=== PATIENT | male | born 1975 | race Caucasian/White ===

== ENCOUNTER 2017-08-03 08:11 | Emergency (ER) | payer SELFPAY ==
[2017-08-03] MEDS ORDERED: NA CHLORIDE 0.9% 1,000 ML ONE ×2 (08:42→10:08)
--- NOTE | 2017-08-03 09:01 | RAD REPORT ---
EXAM DESCRIPTION: RAD - Chest Single View - 08/03/2017 8:52 am CLINICAL HISTORY: Cough COMPARISON: None. FINDINGS: Portable technique limits examination quality. The lungs are grossly clear. The heart is normal in size. No displaced fractures. IMPRESSION: No acute intrathoracic process suspected.
[2017-08-03] MEDS ORDERED: ENALAPRILAT 1.25 MG/ML VIAL IV ONE (09:05)
[2017-08-03 09:21] LABS: Absolute Lymphocytes (CBC) 1.4 K/uL (0.7-4.9); Absolute Neutrophil 6.7 K/uL (1.8-8.0); Basophils % 0.7 % (0-1.3); Eosinophils % 0.4 % (0-4.4); Hematocrit 46.4 % (39.6-49.0); Lymphocytes % 14.9 % (15.3-44.8); MCH 31.7 pg (27.0-35.0); MCV 91.9 fL (80-100); MPV 8.6 fL (7.6-11.3); Monocytes % 10.8 % (3.3-12.3); RBC Red Blood Cell Count 5.05 M/uL (4.33-5.43)
[2017-08-03 09:27] LABS: Bicarbonate 25 mEq/L (21-31); Glucose Level 109 mg/dL (65-120); Potassium 3.2 mEq/L (3.6-5.0); Sodium Level 137 mEq/L (135-145)
[2017-08-03 09:30] LABS: Protime INR 1.16
[2017-08-03 09:33] LABS: ALT/SGPT 66 IU/L (10-60); AST/SGOT 65 IU/L (10-42); Albumin 4.5 g/dL (3.2-5.5); Alkaline Phosphatase 60 IU/L (42-121); BUN Blood Urea Nitrogen 10 mg/dL (6-20); Bilirubin Direct 0.1 mg/dL (0-0.2); Bilirubin Total 0.9 mg/dL (0.3-1.2); Creatine Phosphokinase 468 IU/L (22-269); Magnesium 1.7 mg/dL (1.8-2.5); Protein, Total 8.6 g/dL (6.0-8.3)
[2017-08-03 09:42] LABS: Barbiturates NEGATIVE; Benzodiazepines NEGATIVE; Cocaine NEGATIVE; Opiates POSITIVE; Phencyclidine NEGATIVE; THC Cannibis NEGATIVE
[2017-08-03 09:45] LABS: METHAMPHETAM POSITIVE
[2017-08-03] MEDS ORDERED: MAGNESIUM SULFATE 1 gm IVPB 1 GM/100 ML BAG IV ONE (10:08)
[2017-08-03] MEDS ORDERED: POTASSIUM CL SA 10 MEQ TAB PO ONE (10:08)
[2017-08-03] MEDS ORDERED: METOPROLOL TARTRATE 5 MG/5 ML INJ IV ONE (10:24)
--- NOTE | 2017-08-03 10:27 | EKG ---
Test Date: 2017-08-03 Test Time: 08:43:11 Home Designer: RYAN MEASUREMENT RESULTS: Intervals: Rate: 123 NM: 144 QRSD: 92 QT: 320 QTc: 458 [place]: P: 72 NM: 144 QRS: 47 T: -7 INTERPRETIVE STATEMENTS: Sinus tachycardia Left ventricular hypertrophy with repolarization abnormality Abnormal ECG Compared to ECG 08/10/2016 09:46:49 Left ventricular hypertrophy now present Early repolarization now present Sinus rhythm no longer present Electronically Signed On 08-03-17 10:27:00 CDT by Yrn Madrigal
[2017-08-03] MEDS ORDERED: KETOROLAC 30 MG/ML INJ ONE (11:09)
[2017-08-03] MEDS ORDERED: ACETAMINOPHEN 325 MG TABLET ONE (11:09)
--- NOTE | 2017-08-03 11:45 | ER ---
Nurse's Notes [facility] Name: Marvin Chow Age: 42 yrs Sex: Male : 1975 Arrival Date: 08/03/2017 Time: 08:14 Bed 20 Private MD: Diagnosis: Acute bronchitis;Dehydration Presentation: 08/03 08:32 Presenting complaint: Patient states: cough and body aches for a week, reports nausea, em chills, Right ear pain, unknown fever. Transition of care: patient was not received from another setting of care. Onset of symptoms was July 27, 2017. Initial Sepsis Screen: Does the patient have a suspected source of infection?. Care prior to arrival: None. 08:32 Method Of Arrival: Ambulatory em 08:32 Acuity: GERARDO 3 iw 10:30 Initial Sepsis Screen: Does the patient meet any 2 criteria? HR > 90 bpm. No. Patient's em initial sepsis screen is negative. Does the patient have a suspected source of infection? No. Patient's initial sepsis screen is negative. Historical: - Home Meds: 08:35 atenolol 50 mg Oral tab 1 tab once daily [Active]; lisinopril 40 mg Oral tab 1 tab once em daily [Active]; 11:44 clonidine HCl 0.2 mg oral tab [Active]; Hydrochlorothiazide Oral [Active]; em - PMHx: 08:35 heart flutter; Hypertension; em - PSHx: 08:35 Heart stents; em - Immunization history:: Adult Immunizations up to date, Flu vaccine is not up to date. - Social history:: Smoking status: Patient/guardian denies using tobacco. Screenin:36 Abuse screen: Denies threats or abuse. Nutritional screening: No deficits noted. em Tuberculosis screening: No symptoms or risk factors identified. Fall Risk None identified. Assessment: 08:35 General: Appears in no apparent distress. uncomfortable, Behavior is calm, cooperative. em General: Reports chills for >3 days, feeling ill for fatigue for Denies fever. Pain: Complains of pain in whole body Pain currently is 9 out of 10 on a pain scale. Neuro: Level of Consciousness is awake, alert, obeys commands, Oriented to person, place, time, situation, Reports headache weakness Denies blurred vision paresthesias. Cardiovascular: Denies chest pain, diaphoresis, vomiting, Heart tones S1 S2 present Capillary refill < 3 seconds Rhythm is sinus tachycardia. Respiratory: Airway is patent Respiratory effort is even, unlabored, Respiratory pattern is regular, symmetrical, Breath sounds are clear bilaterally. GI: Abdomen is flat, Abd is soft X 4 quads Abdomen is tender to palpation in right lower quadrant. : No signs and/or symptoms were reported regarding the genitourinary system. EENT: Reports right ear pain. Derm: Skin is intact, Skin is pink, warm \T\ dry. Musculoskeletal: Capillary refill < 3 seconds, Range of motion: intact in all extremities. 09:30 Reassessment: Patient appears in no apparent distress at this time. Patient and/or em family updated on plan of care and expected duration. Pain level reassessed. Patient is alert, oriented x 3, equal unlabored respirations, skin warm/dry/pink. Patient states feeling better. 09:45 Reassessment: Patient appears in no apparent distress at this time. I agree with the iw above assessment by Og Yi LVN. 10:30 Reassessment: Patient appears in no apparent distress at this time. Patient and/or em family updated on plan of care and expected duration. Pain level reassessed. Patient is alert, oriented x 3, equal unlabored respirations, skin warm/dry/pink. Patient states feeling better. 11:16 Reassessment: Patient appears in no apparent distress at this time. Patient and/or em family updated on plan of care and expected duration. Pain level reassessed. Patient is alert, oriented x 3, equal unlabored respirations, skin warm/dry/pink. Patient states feeling better. Patient states symptoms have improved. 11:40 Reassessment: Patient appears in no apparent distress at this time. CLAUDIA Childs at bedside em discussing POC. Vital Signs: 08:34 BP 163 / 118; Pulse 136; Resp 22; Temp 99.8(O); Pulse Ox 97% on R/A; Weight 95.25 kg; em Height 5 ft. 10 in. (177.80 cm); Pain 9/10; 09:00 BP 174 / 110; Pulse 126; Resp 20; Pulse Ox 96% on R/A; em 09:40 BP 157 / 112; Pulse 123; Resp 20; Pulse Ox 96% on R/A; em 10:29 BP 142 / 98; Pulse 95; Resp 17; Pulse Ox 96% on R/A; 5 11:10 BP 154 / 99; Pulse 93; Resp 16; Temp 99.4(O); Pulse Ox 97% on R/A; em 12:00 BP 170 / 107; Pulse 95; Resp 18; Pulse Ox 97% on R/A; em 08:34 Body Mass Index 30.13 (95.25 kg, 177.80 cm) em ED Course: 08:14 Patient arrived in ED. rg4 08:21 Amadeo Santana PA is PHCP. jr8 08:21 Rex Black MD is Attending Physician. jr8 08:31 Og Yi LVN is Primary Nurse. em 08:36 Patient has correct armband on for positive identification. Placed in gown. Bed in low em position. Call light in reach. Side rails up X 1. 08:36 Arm band placed on. em 08:50 No provider procedures requiring assistance completed. Inserted saline lock: 20 gauge em in right antecubital area, using aseptic technique. Blood collected. 08:50 Initial lab(s) drawn, by me, sent to lab. First set of blood cultures drawn Urine em collected: clean catch specimen, clear, Flu and/or RSV swab sent to lab. Strep swab sent to lab. 08:51 X-ray completed. Portable x-ray completed in exam room. Patient tolerated procedure ml well. 08:53 XRAY Chest (1 view) In Process Unspecified. EDMS 09:12 EKG done, by structured cabling technician. reviewed by Amadeo TAYLOR. vh 09:28 Triage completed. iw 12:12 IV discontinued, intact, bleeding controlled, No redness/swelling at site. Pressure em dressing applied. Administered Medications: 09:05 Drug: NS 0.9% 1000 ml Route: IV; Rate: 1000 ml; Site: right antecubital; em 11:10 Follow up: IV Status: Completed infusion; IV Intake: 1000ml em 09:20 Drug: Enalaprilat 1.25 mg Route: IV; Rate: calculated rate; Site: right antecubital; iw 10:00 Follow up: Response: No adverse reaction; Blood pressure is lowered; IV Status: em Completed infusion 10:14 Follow up: Response: No adverse reaction; Blood pressure is lowered em 10:14 Drug: Magnesium Sulfate 1 grams Route: IVPB; Infused Over: 1 hrs; Site: right em antecubital; 11:00 Follow up: IV Status: Completed infusion; IV Intake: 100ml em 10:14 Drug: Potassium Chloride 40 mEq Route: PO; em 11:10 Follow up: Response: No adverse reaction em 10:30 Drug: Metoprolol 5 mg Route: IVP; Site: right antecubital; iw 11:11 Follow up: Response: No adverse reaction; Blood pressure is lowered em 11:02 Drug: NS 0.9% 1000 ml Route: IV; Rate: 1000 ml; Site: right antecubital; em 12:30 Follow up: IV Status: Completed infusion; IV Intake: 1000ml em 11:14 Drug: Tylenol 650 mg Route: PO; em 11:47 Follow up: Response: No adverse reaction em 11:15 Drug: TORadol 30 mg Route: IVP; Site: right antecubital; iw 11:47 Follow up: Response: No adverse reaction em Intake: 11:00 IV: 100ml; Total: 100ml. em 11:10 IV: 1000ml; Total: 1100ml. em 12:30 IV: 1000ml; Total: 2100ml. em Outcome: 11:45 Discharge ordered by MD. ramirez 12:12 Discharged to home ambulatory. em 12:12 Condition: good 12:12 Discharge instructions given to patient, Instructed on discharge instructions, follow up and referral plans. Demonstrated understanding of instructions, follow-up care, medications, Prescriptions given X 7 12:13 Patient left the ED. em Signatures: Dispatcher [employer] EDMS Og Yi, SPORTS PHYSICAL THERAPIST SPORTS PHYSICAL THERAPIST em Nery Baker RN RN iw Lopez, Melissa ml Roszak, Josh, PA PA jr8 [place] Rub[facility] Paz Chand [facility] Corrections: (The following items were deleted from the chart) 08:48 08:34 Pulse 136bpm; Resp 22bpm; Pulse Ox 97% RA; Temp 99.8F Oral; 95.25 kg; Height 5 em ft. 10 in.; BMI: 30.1; Pain 9/10; em 11:44 08:35 Allergies: No Known Allergies; em em 1144 08:35 Home Meds: clonidine HCl 0.1 mg Oral tab 1 tab 2 times per day; em em 11:46 10:30 Reassessment: Patient appears in no apparent distress at this time. Patient em and/or family updated on plan of care and expected duration. Pain level reassessed. Patient is alert, oriented x 3, equal unlabored respirations, skin warm/dry/pink. iw 12:12 12:00 BP 170 / 107; Pulse 95bpm; Resp 97bpm; Pulse Ox 97% RA; em em 19:21 19:21 IV Status: Completed infusion; IV Intake: 100ml em em
--- NOTE | 2017-08-03 11:45 | EDPHYS ---
Physician Documentation [facility] Name: Marvin Chow Age: 42 yrs Sex: Male : 1975 Arrival Date: 08/03/2017 Time: 08:14 Bed 20 Private MD: ED Physician Rex Black HPI: 08/03 09:11 This 42 yrs old Male presents to ER via Ambulatory with complaints of Cough, jr8 Congestion. 09:11 The patient or guardian reports cough, that is intermittent, described as mild, with jr8 productive sputum, that is yellow. Onset: The symptoms/episode began/occurred gradually, 1 week(s) ago. Severity of symptoms: At their worst the symptoms were moderate, in the emergency department the symptoms are unchanged. Modifying factors: The symptoms are alleviated by nothing, the symptoms are aggravated by nothing. Associated signs and symptoms: Pertinent positives: headache, body aches, chills, n/v . The patient has not experienced similar symptoms in the past. The patient has not recently seen a physician. Historical: - Home Meds: 08:35 atenolol 50 mg Oral tab 1 tab once daily [Active]; lisinopril 40 mg Oral tab 1 tab once em daily [Active]; 11:44 clonidine HCl 0.2 mg oral tab [Active]; Hydrochlorothiazide Oral [Active]; em - PMHx: 08:35 heart flutter; Hypertension; em - PSHx: 08:35 Heart stents; em - Immunization history:: Adult Immunizations up to date, Flu vaccine is not up to date. - Social history:: Smoking status: Patient/guardian denies using tobacco. ROS: 09:11 Eyes: Negative for injury, pain, redness, and discharge, ENT: Negative for injury, jr8 pain, and discharge, Neck: Negative for injury, pain, and swelling, Cardiovascular: Negative for chest pain, palpitations, and edema, Back: Negative for injury and pain, MS/Extremity: Negative for injury and deformity, Skin: Negative for injury, rash, and discoloration. 09:11 Constitutional: Positive for body aches, chills. 09:11 Respiratory: Positive for cough, with yellow sputum, Negative for dyspnea on exertion, shortness of breath. 09:11 Abdomen/GI: Positive for nausea and vomiting, Negative for abdominal pain, diarrhea, constipation, abdominal cramps, abdominal distension, anorexia, dysphagia, hematemesis, black/tarry stool, rectal pain, rectal bleeding, bowel incontinence, flatulence. 09:11 Neuro: Positive for headache, Negative for altered mental status, dizziness, gait disturbance, hearing loss, loss of consciousness, numbness, seizure activity, speech changes, syncope, near syncope, tingling, tinnitus, tremor, visual changes, weakness. Exam: 09:11 Head/Face: Normocephalic, atraumatic. Eyes: Pupils equal round and reactive to light, jr8 extra-ocular motions intact. Lids and lashes normal. Conjunctiva and sclera are non-icteric and not injected. Cornea within normal limits. Periorbital areas with no swelling, redness, or edema. ENT: Nares patent. No nasal discharge, no septal abnormalities noted. Tympanic membranes are normal and external auditory canals are clear. Oropharynx with no redness, swelling, or masses, exudates, or evidence of obstruction, uvula midline. Mucous membranes moist. Neck: Trachea midline, no thyromegaly or masses palpated, and no cervical lymphadenopathy. Supple, full range of motion without nuchal rigidity, or vertebral point tenderness. No Meningismus. Respiratory: Lungs have equal breath sounds bilaterally, clear to auscultation and percussion. No rales, rhonchi or wheezes noted. No increased work of breathing, no retractions or nasal flaring. Abdomen/GI: Soft, non-tender, with normal bowel sounds. No distension or tympany. No guarding or rebound. No evidence of tenderness throughout. Back: No spinal tenderness. No costovertebral tenderness. Full range of motion. Skin: Warm, dry with normal turgor. Normal color with no rashes, no lesions, and no evidence of cellulitis. MS/ Extremity: Pulses equal, no cyanosis. Neurovascular intact. Full, normal range of motion. Neuro: Awake and alert, GCS 15, oriented to person, place, time, and situation. Cranial nerves II-XII grossly intact. Motor strength 5/5 in all extremities. Sensory grossly intact. Cerebellar exam normal. Normal gait. 09:11 Cardiovascular: Rate: tachycardic, Rhythm: regular, Pulses: Pulses are 2+ in right radial artery and left radial artery. Heart sounds: normal, normal S1and S2, no S3 or S4, no murmur, no rub, no gallop, Edema: is not appreciated. Vital Signs: 08:34 BP 163 / 118; Pulse 136; Resp 22; Temp 99.8(O); Pulse Ox 97% on R/A; Weight 95.25 kg; em Height 5 ft. 10 in. (177.80 cm); Pain 9/10; 09:00 BP 174 / 110; Pulse 126; Resp 20; Pulse Ox 96% on R/A; em 09:40 BP 157 / 112; Pulse 123; Resp 20; Pulse Ox 96% on R/A; em 10:29 BP 142 / 98; Pulse 95; Resp 17; Pulse Ox 96% on R/A; mh5 11:10 BP 154 / 99; Pulse 93; Resp 16; Temp 99.4(O); Pulse Ox 97% on R/A; em 12:00 BP 170 / 107; Pulse 95; Resp 18; Pulse Ox 97% on R/A; em 08:34 Body Mass Index 30.13 (95.25 kg, 177.80 cm) em MDM: 08:21 Patient medically screened. jr8 11:39 Differential Diagnosis: Bronchitis Influenza Upper Respiratory Infection Viral Syndrome jr8 Pneumonia. Data reviewed: vital signs, nurses notes, lab test result(s), EKG, radiologic studies, plain films, and as a result, I will discharge patient. Data interpreted: Pulse oximetry: on room air is 100 %. Interpretation: normal. Counseling: I had a detailed discussion with the patient and/or guardian regarding: the historical points, exam findings, and any diagnostic results supporting the discharge/admit diagnosis, lab results, radiology results, the need for outpatient follow up, a family practitioner, to return to the emergency department if symptoms worsen or persist or if there are any questions or concerns that arise at home. Response to treatment: the patient's symptoms have markedly improved after treatment, patient is well hydrated. 08/03 08:31 Order name: Basic Metabolic Panel; Complete Time: 08/03 08:31 Order name: BNP; Complete Time: 08/03 08:31 Order name: CBC with Diff; Complete Time: 09:29 08/03 08:31 Order name: CPK; Complete Time: 08/03 08:31 Order name: LFT's; Complete Time: :42 08/03 08:31 Order name: Magnesium; Complete Time: 09:42 08/03 08:31 Order name: PT-INR; Complete Time: 09:42 08/03 08:31 Order name: Troponin (emerg Dept Use Only); Complete Time: 09:42 08/03 08:31 Order name: Flu; Complete Time: 09:42 08/03 08:31 Order name: Strep; Complete Time: 09:42 08/03 08:35 Order name: Blood Culture Adult (2) 08/03 09:03 Order name: UDS 08/03 09:03 Order name: Urine Drug Screen; Complete Time: 09:55 EDMA 08/03 09:31 Order name: Throat Culture [facility] 08/03 08:31 Order name: XRAY Chest (1 view); Complete Time: 09:04 08/03 08:31 Order name: EKG; Complete Time: 08:32 08/03 08:31 Order name: Cardiac monitoring; Complete Time: 09:18 08/03 08:31 Order name: EKG - Nurse/Tech; Complete Time: 09:18 08/03 08:31 Order name: IV Saline Lock; Complete Time: 09:18 08/03 08:31 Order name: Labs collected and sent; Complete Time: 09:18 08/03 08:31 Order name: O2 Per Protocol; Complete Time: 09:18 08/03 09:56 Order name: Urine Dipstick--Ancillary (enter results) 08/03 08:31 Order name: O2 Sat Monitoring; Complete Time: 09:18 08/03 08:31 Order name: Urine Dipstick-Ancillary (obtain specimen); Complete Time: 09:18 Administered Medications: 09:05 Drug: NS 0.9% 1000 ml Route: IV; Rate: 1000 ml; Site: right antecubital; em 11:10 Follow up: IV Status: Completed infusion; IV Intake: 1000ml em 09:20 Drug: Enalaprilat 1.25 mg Route: IV; Rate: calculated rate; Site: right antecubital; iw 10:00 Follow up: Response: No adverse reaction; Blood pressure is lowered; IV Status: em Completed infusion 10:14 Follow up: Response: No adverse reaction; Blood pressure is lowered em 10:14 Drug: Magnesium Sulfate 1 grams Route: IVPB; Infused Over: 1 hrs; Site: right em antecubital; 11:00 Follow up: IV Status: Completed infusion; IV Intake: 100ml em 10:14 Drug: Potassium Chloride 40 mEq Route: PO; em 11:10 Follow up: Response: No adverse reaction em 10:30 Drug: Metoprolol 5 mg Route: IVP; Site: right antecubital; iw 11:11 Follow up: Response: No adverse reaction; Blood pressure is lowered em 11:02 Drug: NS 0.9% 1000 ml Route: IV; Rate: 1000 ml; Site: right antecubital; em 12:30 Follow up: IV Status: Completed infusion; IV Intake: 1000ml em 11:14 Drug: Tylenol 650 mg Route: PO; em 11:47 Follow up: Response: No adverse reaction em 11:15 Drug: TORadol 30 mg Route: IVP; Site: right antecubital; iw 11:47 Follow up: Response: No adverse reaction em Disposition: 08/03/17 11:45 Discharged to Home. Impression: Acute bronchitis, Dehydration. - Condition is Stable. - Discharge Instructions: Acute Bronchitis, Dehydration, Adult. - Prescriptions for atenolol 50 mg Oral tablet - take 1 tablet by ORAL route once daily; 30 tablet. lisinopril 40 mg Oral tablet - take 1 tablet by ORAL route once daily; 30 tablet. Hydrochlorothiazide 25 mg Oral Tablet - take 1 tablet by ORAL route once daily .; 30 tablet. Tessalon Perles 100 mg Oral Capsule - take 1 capsule by ORAL route every 8 hours As needed; 15 capsule. Zithromax Z- Marques 250 mg Oral Tablet - take 1 tablet by ORAL route as directed for 5 days Day 1 - take two (2) tablets one time. Day 2, 3, 4 , 5 take one (1) tablet once daily.; 6 tablet. Albuterol Sulfate 90 mcg/actuation - inhale 1-2 puff by INHALATION route every 4-6 hours; 1 Inhaler. Clonidine 0.2 mg Oral Tablet - take 1 tablet by ORAL route every 12 hours; 30 tablet. - Work release form, Medication Reconciliation Form, Thank You Letter, Antibiotic Education, Prescription Opioid Use form. - Follow up: Private Physician; When: 2 - 3 days; Reason: Recheck today's complaints, Continuance of care, Re-evaluation by your physician. - Problem is new. - Symptoms have improved. Addendum: 08/06/2017 20:56 Co-signature as Attending Physician, Rex Black MD. r n Signatures: Dispatcher [employer] EDMS Kd, Og, DECORATOR MANNEQUIN DECORATOR MANNEQUIN em Nery Baker RN RN iw Nieto, Roman, MD MD rn Roszak, Josh, PA PA jr8 Corrections: (The following items were deleted from the chart) 08/03 11:44 08:35 Allergies: No Known Allergies; em em 11:44 08:35 Home Meds: clonidine HCl 0.1 mg Oral tab 1 tab 2 times per day; em em 12:13 11:45 08/03/2017 11:45 Discharged to Home. Impression: Acute bronchitis; Dehydration. em Condition is Stable. Forms are Medication Reconciliation Form, Thank You Letter, Antibiotic Education, Prescription Opioid Use. Follow up: Private Physician; When: 2 - 3 days; Reason: Recheck today's complaints, Continuance of care, Re-evaluation by your physician. Problem is new. Symptoms have improved. jr8
[2017-08-03 13:40] LABS: Urine Blood NEGATIVE (NEG); Urine Glucose NEGATIVE (NEG); Urine Protein 1+ (NEG); Urine Specific Gravity 1.025 (1.005-1.030); Urine pH 5.5 (5.0-7.0)
== END 2017-08-03 12:13 | disposition home or self-care (01) ==
LOC: ER 08:11
DX: J20.9 Acute bronchitis, unspecified (principal); E86.0 Dehydration; I10 Essential (primary) hypertension
CPT/HCPCS: 36415; 71045; 80048; 80076; 80307; 81003; 82550; 83735; 83880; 84484; 85025; 85610; 87040; 87070; 87081; 87804; 93005; 96361; 96365; 96367; 96375; 99284; J3475; J7030

== ENCOUNTER 2020-08-28 23:49 | Emergency (ER) | payer SELFPAY ==
[2020-08-29 00:46] LABS: Urine Blood Negative (Negative); Urine Glucose Negative (Negative); Urine Protein Negative (Negative); Urine Specific Gravity 1.015 (1.005-1.030); Urine pH 5.5 (5.0-7.0)
[2020-08-29] MEDS ORDERED: KETOROLAC 30 MG/ML INJ ONE (01:22)
[2020-08-29 01:27] LABS: Absolute Lymphocytes (CBC) 4.2 K/uL (0.7-4.9); Basophils % 1.6 % (0-1.3); Hematocrit 48.2 % (39.6-49.0); Lymphocytes % 44.3 % (15.3-44.8); MPV 7.8 fL (7.6-11.3); RBC Red Blood Cell Count 5.13 M/uL (4.33-5.43)
[2020-08-29 01:30] LABS: Protime INR 0.97
[2020-08-29 01:47] LABS: Blood Morphology Comment NOT SEEN (NOT SEEN); Platelet Estimate ADEQ
[2020-08-29 01:54] LABS: ALT/SGPT 68 U/L (12-78); AST/SGOT 54 U/L (15-37); Albumin 3.8 g/dL (3.4-5.0); Alkaline Phosphatase 66 U/L (45-117); BUN Blood Urea Nitrogen 8 mg/dL (7-18); Bicarbonate 25 mmol/L (21-32); Bilirubin Direct < 0.1 mg/dL (0-0.2); Bilirubin Total 0.2 mg/dL (0.2-1.0); Glucose Level 107 mg/dL (74-106); Magnesium 2.1 mg/dL (1.8-2.4); NT PRO-BNP 25 pg/mL (<125); Potassium 3.7 mmol/L (3.5-5.1); Protein, Total 8.5 g/dL (6.4-8.2); Sodium Level 140 mmol/L (136-145); Troponin (Emerg Dept Use Only) < 0.02 ng/mL (0.0-0.045)
--- NOTE | 2020-08-29 03:17 | EDPHYS ---
Physician Documentation [facility] Name: Marvin Chow Age: 45 yrs Sex: Male : 1975 Arrival Date: 08/28/2020 Time: 23:51 Bed 19 Private MD: ED Physician Chris Hamm HPI: 08/29 20:03 This 45 yrs old Male presents to ER via Ambulatory with complaints of Low tw4 Back Pain, Numbness Of Hand, Numbness Of Arm, Urinary Problem, Back Pain. 20:03 The patient presents with pain that is chronic, with no known mechanism of injury. The tw4 symptoms are located in the thoracic area and lumbar area. The pain does not radiate. The problem was sustained from unknown cause. Onset: The symptoms/episode began/occurred 2 week(s) ago. Modifying factors: The patient symptoms are alleviated by nothing, the patient symptoms are aggravated by any movement. Associated signs and symptoms: Pertinent positives: bladder incontinence, Pertinent negatives: abdominal pain, chest pain, constipation, dysuria, fever, headache, hematuria, numbness, tingling, urinary retention, vomiting, weakness. Severity of symptoms: At their worst the symptoms were mild, in the emergency department the symptoms are unchanged. The patient has not experienced similar symptoms in the past. Historical: - Allergies: 00:14 No Known Allergies; rr5 - PMHx: 00:14 heart flutter; Hypertension; rr5 - PSHx: 00:14 Hernia repair; rr5 - Immunization history:: Adult Immunizations up to date. - Social history:: Smoking status: unknown Patient/guardian denies using alcohol, street drugs, tobacco products. ROS: 20:03 Constitutional: Negative for fever, chills, and weight loss, Eyes: Negative for injury, tw4 pain, redness, and discharge, Cardiovascular: Negative for chest pain, palpitations, and edema, Respiratory: Negative for shortness of breath, cough, wheezing, and pleuritic chest pain, Abdomen/GI: Negative for abdominal pain, nausea, vomiting, diarrhea, and constipation. 20:03 MS/Extremity: Negative for injury and deformity, Skin: Negative for injury, rash, and discoloration, Neuro: Negative for headache, weakness, numbness, tingling, and seizure. 20:03 Back: Positive for decreased range of motion, pain at rest, pain with movement, flank pain. Exam: 20:03 Constitutional: This is a well developed, well nourished patient who is awake, alert, tw4 and in no acute distress. Head/Face: Normocephalic, atraumatic. Chest/axilla: Normal chest wall appearance and motion. Nontender with no deformity. No lesions are appreciated. Cardiovascular: Regular rate and rhythm with a normal S1 and S2. No gallops, murmurs, or rubs. Normal PMI, no JVD. No pulse deficits. Respiratory: Lungs have equal breath sounds bilaterally, clear to auscultation and percussion. No rales, rhonchi or wheezes noted. No increased work of breathing, no retractions or nasal flaring. Abdomen/GI: Soft, non-tender, with normal bowel sounds. No distension or tympany. No guarding or rebound. No evidence of tenderness throughout. Skin: Warm, dry with normal turgor. Normal color with no rashes, no lesions, and no evidence of cellulitis. MS/ Extremity: Pulses equal, no cyanosis. Neurovascular intact. Full, normal range of motion. Neuro: Awake and alert, GCS 15, oriented to person, place, time, and situation. Cranial nerves II-XII grossly intact. Motor strength 5/5 in all extremities. Sensory grossly intact. Cerebellar exam normal. Normal gait. 20:03 Back: pain, is absent, ROM is painful. Vital Signs: 00:07 BP 199 / 121; Pulse 105; Resp 20; Temp 98; Pulse Ox 95% ; Weight 90.72 kg; Height 5 ft. rr5 10 in. (177.80 cm); Pain 10/10; 03:00 BP 181 / 125; Pulse 94; Resp 18; Pulse Ox 96% on R/A; lp1 03:30 BP 173 / 133; lp1 03:45 BP 164 / 123; lp1 04:00 BP 160 / 122; lp1 04:15 BP 155 / 119; lp1 05:00 BP 155 / 115; lp1 00:07 Body Mass Index 28.70 (90.72 kg, 177.80 cm) rr5 MDM: 03:16 Patient medically screened. tw4 20:03 Differential diagnosis: arthritis, strain, fracture. Data reviewed: vital signs, nurses tw4 notes. Data interpreted: Pulse oximetry: Interpretation: normal. Counseling: I had a detailed discussion with the patient and/or guardian regarding: the historical points, exam findings, and any diagnostic results supporting the discharge/admit diagnosis, lab results, radiology results. Medical screen evaluation completed. EMTALA emergency medical condition absent. Medication response: Toradol markedly relieved the patient's pain. Response to treatment: and as a result, I will discharge patient. Special discussion: I discussed with the patient/guardian in detail that at this point there is no indication for admission to the hospital. It is understood, however, that if the symptoms persist or worsen the patient needs to return immediately for re-evaluation. Based on the history and exam findings, there is no indication for further emergent testing or inpatient evaluation. I discussed with the patient/guardian the need to see the neurologist for further evaluation of the symptoms. I discussed with the patient/guardian the need to see the orthopedic surgeon for further evaluation of the symptoms. 08/29 00:23 Order name: Glucose, Ancillary Testing; Complete Time: 04:18 EDMS 08/29 00:41 Order name: Basic Metabolic Panel tw4 08/29 00:41 Order name: CBC with Diff tw4 08/29 00:41 Order name: LFT's tw4 08/29 00:41 Order name: Magnesium; Complete Time: 04:18 tw4 08/29 00:41 Order name: NT PRO-BNP; Complete Time: 04:18 tw4 08/29 00:41 Order name: PT-INR; Complete Time: 04:18 tw4 08/29 00:41 Order name: Troponin (emerg Dept Use Only); Complete Time: 04:18 tw4 08/29 00:42 Order name: Basic Metabolic Panel; Complete Time: 04:18 EDMS 08/29 00:42 Order name: CBC with Automated Diff; Complete Time: 04:18 EDMS 08/29 00:42 Order name: Liver (Hepatic) Function; Complete Time: 04:18 EDMS 08/29 00:46 Order name: Urine Dipstick-Ancillary; Complete Time: 04:18 EDMS 08/29 01:03 Order name: CT Thoracic Spine Wo Cont tw4 08/29 01:31 Order name: Manual Differential; Complete Time: 04:18 EDMS 08/29 00:25 Order name: EKG; Complete Time: 00:25 rr5 08/29 00:25 Order name: EKG - Nurse/Tech; Complete Time: 00:25 rr5 08/29 00:41 Order name: Cardiac monitoring; Complete Time: 00:47 tw4 08/29 05:22 Interpretation: Abnormal. 08/29 00:41 Order name: IV Saline Lock; Complete Time: 01:23 tw4 08/29 00:41 Order name: Labs collected and sent; Complete Time: 01:15 4 08/29 00:41 Order name: O2 Per Protocol; Complete Time: 01:15 08/29 00:41 Order name: O2 Sat Monitoring; Complete Time: 01:15 tw4 08/29 01:03 Order name: CT Lumbar Spine Wo Con tw4 EC:09 Rate is 107 beats/min. Rhythm is regular. QRS [place] is Normal. SD interval is normal. tw4 QRS interval is normal. QT interval is normal. No Q waves. T waves are Inverted in leads III, aVF, V6. No ST changes noted. Clinical impression: NSR w/ Non-specific ST/T Changes. Interpreted by me. Reviewed by me. Administered Medications: 01:16 Drug: TORadol (ketorolac) 30 mg {Note: Verbal order per Dr. Hamm.} Route: IVP; Site: lp1 right forearm; 02:15 Follow up: Response: No change in condition lp1 03:44 Drug: Labetalol 10 mg Route: IVP; Site: right antecubital; lp1 04:21 Follow up: Response: Blood pressure is lowered lp1 04:39 Drug: hydrALAZINE 10 mg Route: IVP; Site: right forearm; lp1 05:00 Follow up: Response: No adverse reaction lp1 Disposition: 08/29/20 03:16 Discharged to Home. Impression: Sprain of ligaments of thoracic spine, Sprain of ligaments of lumbar spine. - Condition is Stable. - Discharge Instructions: Back Pain, Adult, Thoracic Strain. - Prescriptions for Ibuprofen 800 mg Oral Tablet - take 1 tablet by ORAL route every 8 hours As needed take with food; 30 tablet. Cyclobenzaprine 10 mg Oral Tablet - take 1 tablet by ORAL route every 8 hours As needed; 30 tablet. Tramadol 50 mg Oral Tablet - take 1 tablet by ORAL route every 8 hours as needed; 12 tablet. - Medication Reconciliation Form, Thank You Letter, Antibiotic Education, Prescription Opioid Use form. - Follow up: Private Physician; When: Upon discharge from the Emergency Department; Reason: Recheck today's complaints, Continuance of care, Re-evaluation by your physician. Follow up: Rj Doe MD; When: Upon discharge from the Emergency Department; Reason: Recheck today's complaints, Continuance of care, Re-evaluation by your physician. Follow up: Juan Marino MD; When: Upon discharge from the Emergency Department; Reason: Recheck today's complaints, Continuance of care, Re-evaluation by your physician. - Problem is new. - Symptoms have improved. Signatures: Dispatcher [employer] EDMS Cadence Keita RN RN bb Priscilla Baptiste RN RN lp1 Chris Hamm MD MD tw4 Shaq Reno RN RN rr5 Corrections: (The following items were deleted from the chart) 05:24 03:16 08/29/2020 03:16 Discharged to Home. Impression: Sprain of ligaments of thoracic lp1 spine; Sprain of ligaments of lumbar spine. Condition is Stable. Forms are Medication Reconciliation Form, Thank You Letter, Antibiotic Education, Prescription Opioid Use. Follow up: Private Physician; When: Upon discharge from the Emergency Department; Reason: Recheck today's complaints, Continuance of care, Re-evaluation by your physician. Follow up: Rj Doe; When: Upon discharge from the Emergency Department; Reason: Recheck today's complaints, Continuance of care, Re-evaluation by your physician. Follow up: Juan Marino; When: Upon discharge from the Emergency Department; Reason: Recheck today's complaints, Continuance of care, Re-evaluation by your physician. Problem is new. Symptoms have improved. tw4
--- NOTE | 2020-08-29 03:17 | ER ---
Nurse's Notes [facility] Name: Marvin Chow Age: 45 yrs Sex: Male : 1975 Arrival Date: 08/28/2020 Time: 23:51 Bed 19 Private MD: Diagnosis: Sprain of ligaments of thoracic spine;Sprain of ligaments of lumbar spine Presentation: 08/29 00:07 Chief complaint: Patient states: off and on confusion, slurring speech, left arm and rr5 finger numbness started 2 weeks ago. I also have mid back pain and I noticed I cannot control when i pee. Coronavirus screen: Client denies travel out of the [place] in the last 14 days. At this time, the client does not indicate any symptoms associated with coronavirus-19. Ebola Screen: Patient negative for fever greater than or equal to 101.5 degrees Fahrenheit, and additional compatible Ebola Virus Disease symptoms Patient denies exposure to infectious person. Patient denies travel to an Ebola-affected area in the 21 days before illness onset. Initial Sepsis Screen: Does the patient meet any 2 criteria? No. Patient's initial sepsis screen is negative. Does the patient have a suspected source of infection? No. Patient's initial sepsis screen is negative. Risk Assessment: Do you want to hurt yourself or someone else? Patient reports no desire to harm self or others. Onset of symptoms was July 2020. 00:07 Method Of Arrival: Ambulatory rr5 00:07 Acuity: GERARDO 3 rr5 Historical: - Allergies: 00:14 No Known Allergies; rr5 - PMHx: 00:14 heart flutter; Hypertension; rr5 - PSHx: 00:14 Hernia repair; rr5 - Immunization history:: Adult Immunizations up to date. - Social history:: Smoking status: unknown Patient/guardian denies using alcohol, street drugs, tobacco products. Screenin:15 VAN Screening: Arm Drift: Patient shows no arm weakness. Patient is VAN negative. rr5 01:19 Abuse screen: Denies threats or abuse. Denies injuries from another. Nutritional lp1 screening: No deficits noted. Tuberculosis screening: No symptoms or risk factors identified. Fall Risk None identified. Assessment: 01:16 General: Appears uncomfortable, Behavior is calm, cooperative, appropriate for age. lp1 Pain: Complains of pain in lumbar area Pain currently is 8 out of 10 on a pain scale. Quality of pain is described as aching, sharp. Neuro: Level of Consciousness is awake, alert, obeys commands, Oriented to person, place, time, situation, Gait is steady, paresthesias in dorsal aspect of left forearm reports not acute paresthesias . Cardiovascular: Patient's skin is warm and dry. Respiratory: Respiratory effort is even, unlabored. GI: No signs and/or symptoms were reported involving the gastrointestinal system. : Reports incontinence, since 2 weeks ago; reports "wetting the bed" and "barely making it to the bathroom" during the day. EENT: No signs and/or symptoms were reported regarding the EENT system. Derm: Skin is pink, warm \\T\\ dry. Musculoskeletal: No deficits noted. 02:45 Reassessment: Patient appears in no apparent distress at this time. Patient reports lp1 pain unchanged; aware of waiting for imaging results. 04:30 Reassessment: Patient appears in no apparent distress at this time. Patient is alert, lp1 oriented x 3, equal unlabored respirations, skin warm/dry/pink. Patient denies any chest pain, shortness of breath, dizziness. Vital Signs: 00:07 BP 199 / 121; Pulse 105; Resp 20; Temp 98; Pulse Ox 95% ; Weight 90.72 kg; Height 5 ft. rr5 10 in. (177.80 cm); Pain 10/10; 03:00 BP 181 / 125; Pulse 94; Resp 18; Pulse Ox 96% on R/A; lp1 03:30 BP 173 / 133; lp1 03:45 BP 164 / 123; lp1 04:00 BP 160 / 122; lp1 04:15 BP 155 / 119; lp1 05:00 BP 155 / 115; lp1 00:07 Body Mass Index 28.70 (90.72 kg, 177.80 cm) rr5 ED Course: 08/28 23:51 Patient arrived in ED. cf2 08/29 00:14 Triage completed. rr5 00:15 Arm band placed on right wrist. rr5 00:40 Priscilla Baptiste, CM is Primary Nurse. lp1 00:40 Chris Hamm MD is Attending Physician. tw4 01:16 Inserted saline lock: 20 gauge in right forearm, using aseptic technique. Blood lp1 collected. 01:19 Patient has correct armband on for positive identification. Placed in gown. lp1 01:38 CT Thoracic Spine Wo Cont In Process Unspecified. EDMS 01:39 CT Lumbar Spine Wo Con In Process Unspecified. EDMS 03:15 Rj Doe MD is Referral Physician. tw4 03:15 Juan Marino MD is Referral Physician. tw4 03:25 No provider procedures requiring assistance completed. lp1 05:23 IV discontinued, No redness/swelling at site. Pressure dressing applied. lp1 Administered Medications: 01:16 Drug: TORadol (ketorolac) 30 mg {Note: Verbal order per Dr. Hamm.} Route: IVP; Site: lp1 right forearm; 02:15 Follow up: Response: No change in condition lp1 03:44 Drug: Labetalol 10 mg Route: IVP; Site: right antecubital; lp1 04:21 Follow up: Response: Blood pressure is lowered lp1 04:39 Drug: hydrALAZINE 10 mg Route: IVP; Site: right forearm; lp1 05:00 Follow up: Response: No adverse reaction lp1 Outcome: 03:16 Discharge ordered by . tw4 05:23 Discharged to home ambulatory. lp1 05:23 Condition: good 05:23 Discharge instructions given to patient, Instructed on discharge instructions, follow up and referral plans. medication usage, Demonstrated understanding of instructions, follow-up care, medications, Prescriptions given X 3. 05:24 Patient left the ED. lp1 Signatures: Dispatcher [employer] EDOR Priscilla Baptiste, RN RN lp1 Chris Hamm MD MD tw4 Shaq Reno RN RN rr5 Romulo Roblero 2
[2020-08-29] MEDS ORDERED: LABETALOL 20 MG/4ML SYRINGE IV ONE (03:59)
[2020-08-29] MEDS ORDERED: HYDRALAZINE HCL 20 MG/ML VIAL ONE (04:56)
[2020-08-29 05:32] VITALS: TEMP 98
[2020-08-29 05:34] VITALS: O2SAT 96
[2020-08-29 05:40] VITALS: BP 155/115
--- NOTE | 2020-08-30 10:10 | RAD REPORT ---
EXAM DESCRIPTION: CTSpine Lumbar Wo Con08/29/2020 5:50 am CLINICAL HISTORY: The patient is 45 years old and is Male; PAIN TECHNIQUE: Axial computed tomography images of the lumbar spine without intravenous contrast. Sagi ttal and coronal reformatted images were created and reviewed. This CT exam was performed using one or more of the following dose reduction techniques: automated exposure control, adjustment of the mA and/or kV according to patient size, and/or use of iterative reconstruction technique. COMPARISON: No relevant prior studies available. FINDINGS: VERTEBRAE: The vertebral body heights and alignment are maintained. There is no acute frac ture. DISCS/SPINAL CANAL/NEURAL FORAMINA: Minimal intervertebral disc space narrowing with osteophyte formation throughout the lumbar spine is present. There is no significant canal stenosis. Mild disc b ulges are present most prominent at L3-L4 and L4-L5 causing minimal neural foraminal narrowing. SOFT TISSUES: The soft tissues are normal. 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 Electronically signed by: Naomi Holm MD 08/29/2020 2:08 AM CDT Due to temporary technical issues with the PACS/Fluency reporting system, reports are being signed by the in house radiologist without review as a courtesy to ensure prompt reporting. The interpreting r adiologist is fully responsible for the content of the report.
--- NOTE | 2020-08-30 10:19 | RAD REPORT ---
EXAM DESCRIPTION: CTThoracic Spine W/o Cont08/29/2020 5:50 am CLINICAL HISTORY: The patient is 45 years old and is Male; PAIN TECHNIQUE: Axial computed tomography images of the thoracic spine without intravenous contrast. Sa gittal and coronal reformatted images were created and reviewed. This CT exam was performed using o ne or more of the following dose reduction techniques: automated exposure control, adjustment of th e mA and/or kV according to patient size, and/or use of iterative reconstruction technique. COMPARISON: No relevant prior studies available. FINDINGS: VERTEBRAE: The vertebral body heights and alignment are maintained. No acute fracture. DISCS/SPINAL CANAL/NEURAL FORAMINA: The intervertebral disc spaces are maintained. No spinal can al stenosis. SOFT TISSUES: The soft tissues are normal. LUNGS: Visualized lungs are clear. IMPRESSION: No fracture or malalignment of the thoracic spine. Electronically signed by: Naomi Holm MD 08/29/2020 2:05 AM CDT Due to temporary technical issues with the PACS/Fluency reporting system, reports are being signed by the in house radiologist without review as a courtesy to ensure prompt reporting. The interpreting r adiologist is fully responsible for the content of the report.
== END 2020-08-29 05:24 | disposition home or self-care (01) ==
LOC: ER 23:49
DX: S33.5XXA Sprain of ligaments of lumbar spine, initial encounter (principal); S23.3XXA Sprain of ligaments of thoracic spine, initial encounter; I10 Essential (primary) hypertension
CPT/HCPCS: 36415; 72128; 72131; 80048; 80076; 81003; 82947; 83735; 83880; 84484; 85025; 85610; 93005; 99284; J0360

== ENCOUNTER 2021-08-11 16:25 | Emergency (ER) | payer SELFPAY ==
--- OUTSIDE RECORDS SUMMARY | 2021-08-11 16:29 | XMS REPORT | Continuity of Care Document ---
:[address] [facility] Address [address] [place] [address] Dr. Iverson. [address] [place] [address] Care Team Providers Name Role Phone PCP, DOES NOT HAVE A Primary Care Physician Unavailable Aiden UGARTE Attending Clinician Unavailable Jaki Ugarte MD.H. Attending Clinician Doctor Unassigned, Name Attending Clinician Unavailable Dario Vernon Attending Clinician Samuel Attending Clinician Issac Rivera MD Attending Clinician Maggie CANCHOLA Attending Clinician Surgery, General Attending Clinician Unavailable Aiden UGARTE Admitting Clinician Unavailable Issac Rivera MD Admitting Clinician Payers Payer Name Policy Type Policy Number Effective Date Expiration Date S ource Problems Condition Condition Condition Status Onset Resolution Last Treating Co mments Source Name Details Category Date Date Treatment Clinician Date Incarcerat Incarcerat Disease Active Overview : Univers ed right ed right 11-21 Added ity of inguinal inguinal 00:00: automatic [place] as hernia hernia 00 ally from Medical request Branch for surgery [id number] Right Right Disease Active Univers inguinal inguinal 7-14 ity of hernia hernia 00:00: [place] [facility] No known No known Disease Unive rs active active ity of problems problems [facility] Allergies, Adverse Reactions, Alerts Allergy Allergy Status Severity Reaction(s) Onset Inactive Treating Comm ents Source Name Type Date Date Clinician Amlodipi Propensi Active Swelling Univ ers ne ty to 731 ity of adverse 00:00: [place] reaction 00 Medical s Branch NO KNOWN Drug Active Univers ALLERGIE Class ity of S [facility] Social History Social Habit Start Date Stop Date Quantity Comments Source History of Cigarette Smoker Universi ty of tobacco use [facility] Exposure to Not sure University of SARS-CoV-2 [facility] (event) Branch Alcohol intake 2018-12-04 2018-12-04 University of 00:00:00 00:00:00 [facility] Tobacco Comment 2016-10-06 2016-10-06 quit 10 yrs ago Univ ersity of 00:00:00 00:00:00 [facility] Alcohol Comment 2016-10-06 2016-10-06 quit 7 yrs ago Unive rsity of 00:00:00 00:00:00 [facility] Sex Assigned At [birth year] [facility] y of 00:00:00 00:00:00 [facility] Smoking Status Start Date Stop Date Source Unknown if ever smoked [facility] Former smoker 2018-12-04 00:00:00 2018-12-04 00:00:00 [facility] Medications Ordered Filled Start Stop Current Ordering Indication Dosage Frequency Signature Comments Components Source Medication Medication Date Date Medication? Clinician (SIG) Name Name No known No Univers medications 2-28 ity of 09:43: [place] 54 [facility] carvediloL Yes [id number] 12.5mg Take 1 Univers 12.5 mg 2- tablet by ity of tablet 00:00: mouth 2 [place] 00 (two) Medical times Opp daily with meals. RANITIDINE 2019- No Take by Un manolo HCL ORAL 12-04 mouth as ity of 03:40: 00:00 needed. [place] 04 :00 [facility] acetaminoph Yes 1{tbl} 1 tablet, Univers en-codeine 12-04 Oral, ity of (TYLENOL 02:36: Q6HPRN, [place] #3) 300-30 42 Starting Medic al mg tablet 1 [facility] tablet 12/03/18 at 2136, Until Discontinu ed, Routine, Pain (scale 4-6), Pain (scale 7-10) acetaminoph 2019- No 1{tbl} 1 tablet, Univers en-codeine 12-03 Oral, PRN, it y of (TYLENOL 18:03: 18:31 1 dose, [place] #3) 300-30 16 :00 Starting Medic al mg tablet 1 [facility] Branch tablet 12/03/18 at 1303, Until 12/03/18 at 1331, Routine, Pain (scale 7-10), DSU Recovery lidocaine 2018- No ONCE INTRA U nivers 2% 12-03 PROCEDURE, ity of (XYLOCAINE) 16:25: 23:18 Starting [place] 20 mg/mL (2 00 :48 Tue Medical %) 12/03/18 at Branch injection 1125, Until 12/03/18 at 1818, Routine, Intra-op bupivacaine 2018- No ONCE INTRA Univers (preserv 12-03 PROCEDURE, ity of free) 0.5% 16:25: 23:18 [place] (SENSORCAIN 00 :43 Tue Medical E MPF) 0.5 12/03/[address] [facility] nc % (5 mg/mL) 1125, injection Until 12/03/18 at 1818, Routine, Intra-op lidocaine 2018- No ONCE INTRA U nivers 2% 12-03 PROCEDURE, ity of (XYLOCAINE) 16:25: 23:18 Starting [place] 20 mg/mL (2 00 :48 Tue Medical %) 12/03/18 at Branch injection 1125, Until 12/03/18 at 1818, Routine, Intra-op bupivacaine 2018- No ONCE INTRA Univers (preserv 12-03 PROCEDURE, ity of free) 0.5% 16:25: 23:18 [place] (SENSORCAIN 00 :43 Tue Medical E MPF) 0.5 12/03/18 at [facility] % (5 mg/mL) 1125, injection Until 12/03/18 at 1818, Routine, Intra-op FENTanyl PF 2018- No 25ug 25 mcg, Un manolo (SUBLIMAZE 12-03 Slow IV ity o f (PF)) 15:42: 16:10 Push, [place] injection 05 :00 Q5MIN PRN, Medi mark 25 mcg 4 doses, Branch Starting 12/03/18 at 1042, Until 12/03/18 at 1110, Routine, Pain (scale 7-10), PACU sugammadex 2019-0 2019- No ONCE INTRA Univers (BRIDION) 12-03 PROCEDURE, ity of injection 15:35: 16:00 Starting [place] 00 :50 Tue Medical 12/03/18 at Branch 1035, Until 12/03/18 at 1100, Routine, Intra-op sugammadex 2019- No ONCE INTRA Univers (BRIDION) 12-03 PROCEDURE, ity of injection 15:35: 16:00 Starting [place] 00 :50 Tue Medical 12/03/18 at Branch 1035, Until 12/03/18 at 1100, Routine, Intra-op sugammadex 2019- No ONCE INTRA Univers (BRIDION) 12-03 PROCEDURE, ity of injection 15:35: 16:00 Starting [place] 00 :50 Tue Medical 12/03/18 at Branch 1035, Until 12/03/18 at 1100, Routine, Intra-op acetaminoph 2019- No IV Unive rs en ADULT 12-03 Infusion, ity o f ([facility]) 15:15: 16:00 Administer [place] injection 00 :50 over 15 Medical Minutes, Branch ONCE INTRA PROCEDURE, Starting 12/03/18 at 1015, Until 12/03/18 at 1100, Routine, Intra-op acetaminoph 2019- No IV Unive rs en ADULT 12-03 Infusion, ity o f ([facility]) 15:15: 16:00 Administer [place] injection 00 :50 over 15 Medical Minutes, Branch ONCE INTRA PROCEDURE, Starting 12/03/18 at 1015, Until 12/03/18 at 1100, Routine, Intra-op acetaminoph 2019- No IV Unive rs en ADULT 12-03 Infusion, ity o f ([facility]) 15:15: 16:00 Administer [place] injection 00 :50 over 15 Medical Minutes, Branch ONCE INTRA PROCEDURE, Starting 12/03/18 at 1015, Until 12/03/18 at 1100, Routine, Intra-op dexMEDEtomi 2019- No CONTINUOUS Univers dine 12-03 PRN, ity of (PRECEDEX) 15:03: 16:00 [place] 20 mcg in 00 :50 Tue Medical NaCl 0.9% 12/03/18 at [facility] (NS) 1003, piggyback Until Sun12/03/18 at 1100, 50 mL, Intra-op dexMEDEtomi 2018- No CONTINUOUS Univers dine 12-03 PRN, ity of (PRECEDEX) 15:03: 16:00 Starting [place] 20 mcg in 00 :50 Tue Medical NaCl 0.9% 12/03/18 at [facility] (NS) 1003, piggyback Until Tu12/03/18 at 1100, 50 mL, Intra-op dexMEDEtomi 2018- No CONTINUOUS Univers din 12-03 PRN, ity of (PRECEDEX) 15:03: 16:00 Starting [place] 20 mcg in 00 :50 Tue Medical NaCl 0.9% 12/03/18 at [facility] (NS) 1003, piggyback Until Sun12/03/18 at 1100, 50 mL, Intra-op ceFAZolin 2018- No ONCE INTRA U nivers (ANCEF) 12-03 PROCEDURE, ity o f injection 14:55: 16:00 Starting [place] 00 :50 [facility] 12/03/18 at Branch 09, Until Sun12/03/18 at 1100, NEENA, Intra-op ceFAZolin 2019- No ONCE INTRA U nivers (ANCEF) 12-03 PROCEDURE, ity o f injection 14:55: 16:00 Starting [place] 00 :50 [facility] 12/03/18 at Branch 0955, Until e 12/03/18 at 1100, NEENA, Intra-op ceFAZolin 2018- No ONCE INTRA U nivers (ANCEF) 12-03 PROCEDURE, ity o f injection 14:55: 16:00 Starting [place] 00 :50 [facility] 12/03/18 at Branch 09, Until Sun12/03/18 at 1100, NEENA, Intra-op FENTanyl PF 2018- 2019- No Slow IV Un manolo (SUBLIMAZE 12-03 Push, ONCE it y of (PF)) 14:52: 16:00 INTRA [place] injection 00 :50 PROCEDURE, Medi mark Starting Branch [facility] 12/03/18 at 0952, Until 12/03/18 at 1100, Routine, Intra-op lidocaine 2018- 2019- No Slow IV Univ ers 1% 12-03 Push, ONCE ity of (XYLOCAINE) 14:52: 16:00 INTRA [place] 100 mg/10 00 :50 PROCEDURE, Medi mark mL (1 %) Starting Branch injection 12/03/18 at 0952, Until 12/03/18 at 1100, Routine, Intra-op propofol 2018-2018- No Slow IV Unive rs injection 12-03 Push, ONCE ity of 14:52: 16:00 INTRA [place] 00 :50 PROCEDURE, Medical Starting Branch 12/03/18 at 0952, Until 12/03/18 at 1100, Routine, Intra-op rocuronium 2018-0 2018- No ONCE INTRA Univers (ZEMURON) 12-03 PROCEDURE, ity of injection 14:52: 16:00 Starting [place] 00 :50 Tue Medical 12/03/18 at Branch 0952, Until 12/03/18 at 1100, Routine, Intra-op FENTanyl PF 2018-0 2018- No Slow IV Un manolo (SUBLIMAZE 12-03 Push, ONCE it y of (PF)) 14:52: 16:00 INTRA [place] injection 00 :50 PROCEDURE, Medi mark Starting Branch 12/03/18 at 0952, Until 12/03/18 at 1100, Routine, Intra-op lidocaine 2018-2018- No Slow IV Univ ers 1% 12-03 Push, ONCE ity of (XYLOCAINE) 14:52: 16:00 INTRA [place] 100 mg/10 00 :50 PROCEDURE, Medi mark mL (1 %) Starting Branch injection 12/03/18 at 0952, Until 12/03/18 at 1100, Routine, Intra-op propofol 2018-0 2018- No Slow IV Unive rs injection 12-03 Push, ONCE ity of 14:52: 16:00 INTRA [place] 00 :50 PROCEDURE, Medical Starting Branch 12/03/18 at 0952, Until 12/03/18 at 1100, Routine, Intra-op rocuronium 2018-0 2018- No ONCE INTRA Univers (ZEMURON) 12-03 PROCEDURE, ity of injection 14:52: 16:00 Starting [place] 00 :50 Tue Medical 12/03/18 at Branch 0952, Until 12/03/18 at 1100, Routine, Intra-op FENTanyl PF 2018- No Slow IV Un manolo (SUBLIMAZE 12-03 Push, ONCE it y of (PF)) 14:52: 16:00 INTRA [place] injection 00 :50 PROCEDURE, Medi mark Starting Branch 12/03/18 at 0952, Until 12/03/18 at 1100, Routine, Intra-op lidocaine 2018- No Slow IV Univ ers 1% 12-03 Push, ONCE ity of (XYLOCAINE) 14:52: 16:00 INTRA [place] 100 mg/10 00 :50 PROCEDURE, Medi mark mL (1 %) Starting Branch injection 12/03/18 at 0952, Until 12/03/18 at 1100, Routine, Intra-op propofol 2018- No Slow IV Unive rs injection 12-03 Push, ONCE ity of 14:52: 16:00 INTRA [place] 00 :50 PROCEDURE, Medical Starting Branch 12/03/18 at 0952, Until 12/03/18 at 1100, Routine, Intra-op rocuronium 2018- No ONCE INTRA Univers (ZEMURON) 12-03 PROCEDURE, ity of injection 14:52: 16:00 Starting [place] 00 :50 Tue Medical 12/03/18 at Branch 0952, Until 12/03/18 at 1100, Routine, Intra-op lactated 2019- No IV Univers ringers IV 12-03 Infusion, ity of infusion 14:40: 16:00 CONTINUOUS [place] 00 :50 PRN, Medical Starting Branch 12/03/18 at 0940, Until 12/03/18 at 1100, Routine, Intra-op lactated 2019- No IV Univers ringers IV 12-03 Infusion, ity of infusion 14:40: 16:00 CONTINUOUS [place] 00 :50 PRN, Medical Starting Branch 12/03/18 at 0940, Until 9/10/19 at 1100, Routine, Intra-op lactated 2019- No IV Univers ringers IV 12-03 Infusion, ity of infusion 14:40: 16:00 CONTINUOUS [place] 00 :50 PRN, Medical Starting Branch Sun12/03/18 at 0940, Until Sun12/03/18 at 1100, Routine, Intra-op acetaminoph 2019- No [id number] 1{tbl} Take 1 Univers en-codeine -18 tablet by ity of 300-30 mg 00:00: 04:59 mouth [place] tablet 00 :00 every 6 Medical (six) Branch hours as needed for Pain (scale 4-6) or Pain (scale 7-10) for up to 7 days. acetaminoph 2019- No [id number] 1{tbl} Take 1 Univers en-codeine 12-03 tablet by ity of 300-30 mg 00:00: 00:00 mouth [place] tablet 00 :00 every 6 Medical (six) Branch hours as needed for Pain (scale 4-6) or Pain (scale 7-10) for up to 7 days. RANITIDINE Yes Take by Uni vers HCL ORAL 9-09 mouth as ity of 15:59: needed. [address] RANITIDINE Yes Take by Uni vers HCL ORAL 9-09 mouth as ity of 15:59: needed. [address] RANITIDINE Yes Take by Uni vers HCL ORAL 9-09 mouth as ity of 15:59: needed. [address] RANITIDINE Yes Take by Uni vers HCL ORAL 8-27 mouth as ity of 00:09: needed. [address] RANITIDINE Yes Take by Uni vers HCL ORAL 8-27 mouth as ity of 00:09: needed. [address] RANITIDINE Yes Take by Uni vers HCL ORAL 8-26 mouth as ity of 14:29: needed. [address] RANITIDINE Yes Take by Uni vers HCL ORAL 8-26 mouth as ity of 14:29: needed. [address] RANITIDINE Yes Take by Uni vers HCL ORAL 8-26 mouth as ity of 14:29: needed. [address] RANITIDINE Yes Take by Uni vers HCL ORAL 8-26 mouth as ity of 14:29: needed. [place] 41 Medical Branch atenolol 50 2016-03 Yes 50mg Take 1 Univ ers mg tablet 2-22 tablet by ity o f 00:00: mouth 2 (two) Medical times Branch daily. cloniDINE 2016-03 Yes .2mg Take 1 Univer s 0.2 mg 2-22 tablet by ity of tablet 00:00: mouth 2 (two) Medical times Branch daily. hydroCHLORO 2016-03 Yes 25mg Take 1 Univ ers thiazide 25 2-22 tablet by ity of mg tablet 00:00: mouth 00 daily. Medical Branch lisinopril 2016-03 Yes 40mg Take 1 Unive rs 40 mg 2-22 tablet by ity of tablet 00:00: mouth daily. Medical Branch terazosin 1 2016-03 Yes 1mg Take 1 Univ ers mg capsule 2-22 capsule by ity of 00:00: mouth at [place] bedtime. Medical Branch atenolol 50 2016-03 Yes 50mg Take 1 Univ ers mg tablet 2-22 tablet by ity o f 00:00: mouth (two) Medical times Branch daily. cloniDINE 2016-03 Yes .2mg Take 1 Univer s 0.2 mg 2-22 tablet by ity of tablet 00:00: mouth (two) Medical times Branch daily. hydroCHLORO 2016-03 Yes 25mg Take 1 Univ ers thiazide 25 2-22 tablet by ity of mg tablet 00:00: mouth daily. Medical Branch lisinopril 2016-03 Yes 40mg Take 1 Unive rs 40 mg 2-22 tablet by ity of tablet 00:00: mouth 00 daily. Medical Branch terazosin 1 2016-03 Yes 1mg Take 1 Univ ers mg capsule 2-22 capsule by ity of 00:00: mouth at bedtime. Medical Branch atenolol 50 2016-03 Yes 50mg Take 1 Univ ers mg tablet 2-22 tablet by ity o f 00:00: mouth 2 (two) Medical times Branch daily. cloniDINE 2016-03 Yes .2mg Take 1 Univer s 0.2 mg 2-22 tablet by ity of tablet 00:00: mouth 2 (two) Medical times Branch daily. hydroCHLORO 2016-03 Yes 25mg Take 1 Univ ers thiazide 25 2-22 tablet by ity of mg tablet 00:00: mouth [place] 00 daily. Medical Branch lisinopril 2016-03 Yes 40mg Take 1 Unive rs 40 mg 2-22 tablet by ity of tablet 00:00: mouth [place] 00 daily. Medical Branch terazosin 1 2016-03 Yes 1mg Take 1 Univ ers mg capsule 2-22 capsule by ity of 00:00: mouth at [place] 00 bedtime. Medical Branch atenolol 50 2016-03 Yes 50mg Take 1 Univ ers mg tablet 2-22 tablet by ity o f 00:00: mouth 2 (two) Medical times Branch daily. cloniDINE 2016-03 Yes .2mg Take 1 Univer s 0.2 mg 2-22 tablet by ity of tablet 00:00: mouth 2 (two) Medical times Branch daily. hydroCHLORO 2016-03 Yes 25mg Take 1 Univ ers thiazide 25 2-22 tablet by ity of mg tablet 00:00: mouth [place] 00 daily. Medical Branch lisinopril 2016-03 Yes 40mg Take 1 Unive rs 40 mg 2-22 tablet by ity of tablet 00:00: mouth [place] 00 daily. Medical Branch terazosin 1 2016-03 Yes 1mg Take 1 Univ ers mg capsule 2-22 capsule by ity of 00:00: mouth at [place] 00 bedtime. Medical Branch atenolol 50 2016-03 Yes 50mg Take 1 Univ ers mg tablet 2-22 tablet by ity o f 00:00: mouth 2 (two) Medical times Branch daily. cloniDINE 2016-03 Yes .2mg Take 1 Univer s 0.2 mg 2-22 tablet by ity of tablet 00:00: mouth 2 (two) Medical times Branch daily. hydroCHLORO 2016-03 Yes 25mg Take 1 Univ ers thiazide 25 2-22 tablet by ity of mg tablet 00:00: mouth [place] 00 daily. Medical Branch lisinopril 2016-03 Yes 40mg Take 1 Unive rs 40 mg 2-22 tablet by ity of tablet 00:00: mouth [place] 00 daily. Medical Branch terazosin 1 2016-03 Yes 1mg Take 1 Univ ers mg capsule 2-22 capsule by ity of 00:00: mouth at [place] 00 bedtime. Medical Branch atenolol 50 2016-03 Yes 50mg Take 1 Univ ers mg tablet 2-22 tablet by ity o f 00:00: mouth (two) Medical times Branch daily. cloniDINE 2016-03 Yes .2mg Take 1 Univer s 0.2 mg 2-22 tablet by ity of tablet 00:00: mouth (two) Medical times Branch daily. hydroCHLORO 2016-03 Yes 25mg Take 1 Univ ers thiazide 25 2-22 tablet by ity of mg tablet 00:00: mouth 00 daily. Medical Branch lisinopril 2016-03 Yes 40mg Take 1 Unive rs 40 mg 2-22 tablet by ity of tablet 00:00: mouth 00 daily. Medical Branch terazosin 1 2016-03 Yes 1mg Take 1 Univ ers mg capsule 2-22 capsule by ity of 00:00: mouth at 00 bedtime. Medical Branch atenolol 50 2016-03 Yes 50mg Take 1 Univ ers mg tablet 2-22 tablet by ity o f 00:00: mouth (two) Medical times Branch daily. cloniDINE 2016-03 Yes .2mg Take 1 Univer s 0.2 mg 2-22 tablet by ity of tablet 00:00: mouth (two) Medical times Branch daily. hydroCHLORO 2016-03 Yes 25mg Take 1 Univ ers thiazide 25 2-22 tablet by ity of mg tablet 00:00: mouth 00 daily. Medical Branch lisinopril 2016-03 Yes 40mg Take 1 Unive rs 40 mg 2-22 tablet by ity of tablet 00:00: mouth 00 daily. Medical Branch terazosin 1 2016-03 Yes 1mg Take 1 Univ ers mg capsule 2-22 capsule by ity of 00:00: mouth at 00 bedtime. Medical Branch atenolol 50 2016-03 Yes 50mg Take 1 Univ ers mg tablet 2-22 tablet by ity o f 00:00: mouth (two) Medical times Branch daily. cloniDINE 2016-03 Yes .2mg Take 1 Univer s 0.2 mg 2-22 tablet by ity of tablet 00:00: mouth 2 (two) Medical times Branch daily. hydroCHLORO 2016-03 Yes 25mg Take 1 Univ ers thiazide 25 2-22 tablet by ity of mg tablet 00:00: mouth [place] 00 daily. Medical Branch lisinopril 2016-03 Yes 40mg Take 1 Unive rs 40 mg 2-22 tablet by ity of tablet 00:00: mouth [place] 00 daily. Medical Branch terazosin 1 2016-03 Yes 1mg Take 1 Univ ers mg capsule 2-22 capsule by ity of 00:00: mouth at [place] 00 bedtime. Medical Branch atenolol 50 2016-03 Yes 50mg Take 1 Univ ers mg tablet 2-22 tablet by ity o f 00:00: mouth 2 [place] 00 (two) Medical times Branch daily. cloniDINE 2016-03 Yes .2mg Take 1 Univer s 0.2 mg 2-22 tablet by ity of tablet 00:00: mouth 2 [place] 00 (two) Medical times Branch daily. hydroCHLORO 2016-03 Yes 25mg Take 1 Univ ers thiazide 25 2-22 tablet by ity of mg tablet 00:00: mouth [place] 00 daily. Medical Branch lisinopril 2016-03 Yes 40mg Take 1 Unive rs 40 mg 2-22 tablet by ity of tablet 00:00: mouth [place] 00 daily. Medical Branch terazosin 1 2016-03 Yes 1mg Take 1 Univ ers mg capsule 2-22 capsule by ity of 00:00: mouth at [place] 00 bedtime. Medical Branch atenolol 50 2016-03 2019- No 50mg Take 1 Uni vers mg tablet 2-22 09-10 tablet by ity of 00:00: 00:00 mouth 2 [place] 00 :00 (two) Medical times Branch daily. cloniDINE 2016-03 2019- No .2mg Take 1 Unive rs 0.2 mg 2-22 09-10 tablet by ity of tablet 00:00: 00:00 mouth 2 [place] 00 :00 (two) Medical times Branch daily. hydroCHLORO 2016-03 2019- No 25mg Take 1 Uni vers thiazide 25 2-22 09-10 tablet by it y of mg tablet 00:00: 00:00 mouth [place] 00 :00 daily. Medical Branch lisinopril 2016-03 2019- No 40mg Take 1 Univ ers 40 mg 2-22 09-10 tablet by ity of tablet 00:00: 00:00 mouth [place] 00 :00 daily. Medical Branch terazosin 1 2016-03 2019- No 1mg Take 1 Uni vers mg capsule 2-22 09-10 capsule by it y of 00:00: 00:00 mouth at [place] 00 :00 bedtime. Medical Branch No known No Univers medications ity of [facility] No known No Univers medications ity of [place] Medical Opp No known No Univers medications ity of [facility] No known No Univers medications ity of [facility] No known No Univers medications ity of [facility] Vital Signs Vital Name Observation Time Observation Value Comments Source Systolic blood 2021-05-23 188 mm[Hg] University of pressure 15:46:00 [facility] Diastolic blood 2021-05-23 133 mm[Hg] University o f pressure 15:46:00 [facility] Heart rate 2021-05-23 99 /min University of 15:46:00 [facility] Body height 2021-05-23 177.8 cm University of 15:42:00 [facility] Body weight 2021-05-23 102.711 kg University of 15:42:00 [facility] BMI 2021-05-23 32.49 kg/m2 University of 15:42:00 [facility] Oxygen saturation 2021-05-23 97 /min [facility] in Arterial blood 15:42:00 [facility] by Pulse oximetry Opp Systolic blood 2018-12-03 166 mm[Hg] notified nurse University of pressure 17:18:00 [facility] Diastolic blood 2018-12-03 98 mm[Hg] notified nurse University of pressure 17:18:00 [facility] Heart rate 2018-12-03 61 /min University of 17:18:00 [facility] Body temperature 2018-12-03 36.72 Nahomi University of 17:18:00 [facility] Respiratory rate 2018-12-03 20 /min University of 17:18:00 [facility] Oxygen saturation 2018-12-03 97 /min [facility] in Arterial blood 17:18:00 [facility] by Pulse oximetry Branch Body height 2018-12-02 177.8 cm University of 17:50:00 [facility] Body weight 2018-12-02 92.08 kg University of 17:50:00 [facility] BMI 2018-12-02 29.13 kg/m2 University of 17:50:00 [facility] Systolic blood 2018-11-18 189 mm[Hg] University of pressure 14:59:00 [facility] Diastolic blood 2018-11-18 100 mm[Hg] University o f pressure 14:59:00 [facility] Heart rate 2018-11-18 75 /min [facility] 14:59:00 [facility] Body temperature 2018-11-18 36.56 Nahomi [facility] 14:59:00 [facility] Body height 2018-11-18 177.8 cm [facility] 14:59:00 [facility] Body weight 2018-11-18 91.627 kg [facility] 14:59:00 [facility] BMI 2018-11-18 28.98 kg/m2 [facility] 14:59:00 [facility] Oxygen saturation 2018-11-18 99 /min [facility] in Arterial blood 14:59:00 [facility] by Pulse oximetry Branch Procedures Procedure Date / Time Performing Clinician Source Performed AUTHORIZATION FOR 2021-05-16 06:01:00 Doctor Unassigned, No [facility] RELEASE OF PHI Name Medical Opp XR CERVICAL SPINE 2 2019-05-07 14:17[facility]02 [facility] 2 2019-04-23 14:14:26 Leonela Baker [facility] XR HIPS 2 VW RIGHT 2019-04-23 14:14:05 Leonela Baker [facility] XR SHOULDER 2+ VW LEFT 2019-04-23 14:13:45 [facility] 2018-12-11 05:01:00 Doctor Unassigned, No [facility] RECORDS Name Medical Opp NERVE BLOCK 2018-12-03 23:15:50 Romero Damon [facility] INTUBATION 2018-12-03 15:12:23 [facility] CBC WITH DIFFERENTIAL 2018-11-18 15:33:00 Flash Coello [facility] COMP. METABOLIC PANEL 2018-11-18 15:33:00 Flash Coello [facility] ([id number]) Medical Opp Encounters Start End Encounter Admission Attending Care Care Encounter Source Date/Time Date/Time Type Type Clinicians Facility Department ID 2021-07-22 2021-07-22 Outpatient Isa UGARTE [facility] [id number] Univers 09:00:00 09:00:[address] [facility] 2021-07-22 2021-07-22 Outpatient Isa UGARTE [facility] [id number] Univers 09:00:00 09:00:00 SENDIL ity of [facility] 2021-05-24 2021-05-24 Outpatient R SHANEL [facility] [id number] Univers 09:00:00 23:59:00 SENDIL ity of [facility] 2021-05-23 2021-05-23 Outpatient R SHANEL [facility] [id number] Univers 09:30:00 16:47:[address] [facility] 2021-05-23 2021-05-[address] [facility] [id number] Univers 09:30:00 10:00:00 Visit Sendil Aiden CASTRO [id number] ity of [place] [id number] PROFESS[place] [id number] Nm dical NAL 059 [facility] 2021-05-16 2021-05-16 Orders Doctor ANDRY [id number] Univers 00:00:00 00:00:00 Only Unassigned, SHERIN [id number] ity of [place] [facility] [id number] [place] [id number] [place] [id number] Branch 2019-05-07 2019-05-[facility] [id number] Univers 06:30:00 23:59:00 Encounter Tk Dario stovallfello [id number] ity of [place] [facility] [id number] [facility] [id number] [facility] ica [address] 2019-04-23 2019-04-23 [facility] 1.2.840.114 [id number] Univers 06:20:00 23:59:00 Encounter Leonela ringfello 350.1.13.10 ity of [facility] [place] [facility] [phone] [facility] ical [address] 2019-04-23 2019[facility]04-23 [facility] 1.2.840.114 [id number] Univers 06:19:00 06:19:00 Encounter Leonela ringfello 350.1.13.10 ity of [facility] [place] [facility] [place] [phone] Med ical [address] 2019-04-23 2019-04-23 Hospital Juvenal Baker/ 1.2.840.114 7 [id number] Univers 06:19:00 06:19:00 Encounter Leonela lopes 350.1.13.10 ity of [facility] [place] [facility] [phone] [facility] [address] 2018-12-11 2018-12-11 Orders Doctor ANDRY 1.2.840.114 [id number] Univers 00:00:00 00:00:00 Only Unassigned, SHERIN 350.1.13.10 ity of [facility] 4.2.7.2.686 [place] [id number] [facility] [address] 2018-12-03 2018-12-05 [facility] 1.2.840.114 [id number] Univers 22:00:00 02:22:00 Encounter [facility] 350.1.13.10 [place] [id number] [facility] [address] 2018-12-02 2018-12-03 Hospital [facility] T[facility] 1.2.840.114 [id number] Univers 10:58:00 21:59:00 Encounter [facility] 350.1.13.10 [place] [phone] [facility] [address] 2018-12-03 2018-12-03 Anesthesia Ilana Serrano 1.2.840.114 [id number] Univers 09:40:00 11:00:00 Xavi [place] 350.1.13.10 it y of Hospital 4.2.7.2.686 [place] [phone] [facility] [address] 2018-11-18 2018-11-20 Office Surgery, Td General [facility]DCJ 1.2.8 40.114 [id number] Univers 07:33:30 15:45:28 Visit [facility] 350.1.13.10 [place] [phone] [facility] [address] 2018-11-18 2018-11-18 [facility] TESFAYE Rivera 1.2.840.114 [id number] [facility] 06:30:00 19:08:00 Encounter Mandeep Davenport [facility] 350.1.13.10 ity of 4.2.7.2.686 [place] [phone] [facility] [address] Results Test Description Test Test Results Result Source Time Comments Comments XR CERVICAL 2019-04- XR CERVICAL SPINE 2 VW U niversity of SPINE 2 VW 12 HISTORY: [place] 46 [facility] 18:45:08 pain COMPARISON: None Br anch FINDINGS: Straightening of normal cervical lordosis. The vertebral bodies are normalin height and in normal alignment. The atlantodental space is normal. Theprevertebral soft tissues are unremarkable. No more than minimal spondylotic changes are present. Mild uncinatehypertrophy is also noted at C5-C6, more pronounced on the right.[facility], Radiant Results Inft User - 05/07/2019 12:46 PM CSTXR CERVICAL SPINE 2 VWHISTORY: Male 46 years pain COMPARISON: NoneFINDINGS:Straighten ing of normal cervical lordosis. The vertebral bodies are normalin height and in normal alignment. The atlantodental space is normal. Theprevertebral soft tissues are unremarkable.No more than minimal spondylotic changes are present. Mild uncinatehypertrophy is also noted at C5-C6, more pronounced on the right. XR SHOULDER 2+ 2019-03- No acute bony Univer sity of VW LEFT 29 abnormality. Mild [facility] edical 17:08:52 osteoarthrosis of the [facility] left glenohumeral joint. Preliminary Report Dictated by Resident: Radha Gonzalez MD., have reviewed this study and agree with the abovereport.EXAM: XR SHOULDER 2+ VW LEFT HISTORY: pain COMPARISON: None. FINDINGS: Radiographs of the left shoulder demonstrate no acute fractures ordislocations. The glenohumeral joint is in normal alignment withsubchondral sclerosis and osteophytosis of the inferior glenoid. Mildsubchondral sclerosis of the acromioclavicular joint. Alignment is withinnormal limits. The soft tissues are unremarkable. [facility], Radiant Results Inft User - 04/23/2019 11:09 AM CSTEXAM: XR SHOULDER 2+ VW LEFTHISTORY: pain COMPARISON: None.FINDINGS: Radiographs of the left shoulder demonstrate no acute fractures ordislocations. The glenohumeral joint is in normal alignment withsubchondral sclerosis and osteophytosis of the inferior glenoid. Mildsubchondral sclerosis of the acromioclavicular joint. Alignment is withinnormal limits. 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 XR HIPS 2 VW 2019-03- No acute bony Universi ty of RIGHT 29 abnormality. Mild [place] [facility] 17:06:54 osteoarthrosis of the [facility] right hip joint. Preliminary Report Dictated by Resident: Radha Gonzalez MD., have reviewed this study and agree with the abovereport.EXAM: XR HIPS 2 VW RIGHT HISTORY: pain COMPARISON: None. FINDINGS: Radiographs of the right hip demonstrate no acute fractures ordislocations. Mild joint space narrowing of the superolateral hip jointwith associated subchondral sclerosis, osteophytosis and subcortical cysticchanges. Alignment is within normal limits. The soft tissues areunremarkable. Pelvic phleboliths are noted. [facility], Radiant Results Inft User - 04/23/2019 11:07 AM CSTEXAM: XR HIPS 2 VW RIGHTHISTORY: pain COMPARISON: None.FINDINGS: Radiographs of the right hip demonstrate no acute fractures ordislocations. Mild joint space narrowing of the superolateral hip jointwith associated subchondral sclerosis, osteophytosis and subcortical cysticchanges. Alignment is within normal limits. The soft tissues areunremarkable. Pelvic phleboliths are noted.IMPRESSIONNo acute bony abnormality.Mild osteoarthrosis of the right hip joint.Preliminary Report Dictated by Resident: Radha Jiang MD., have reviewed this study and agree with the abovereport. XR LUMBAR SPINE 2019-03- XR LUMBAR SPINE 2 VW [facility] 2 VW 29 HISTORY: [place] 46 [facility] [place] [facility] [facility] 15:12:24 pain COMPARISON: None Br anch FINDINGS: The vertebral bodies are normal in height and in normal alignment. No more than mild degenerative changes are present.[facility], Radiant Results Inft User - 04/23/2019 9:13 AM CSTXR LUMBAR SPINE 2 VWHISTORY: Male 46 years pain COMPARISON: NoneFINDINGS:The vertebral bodies are normal in height and in normal alignment.No more than mild degenerative changes are present. COMP. METABOLIC PANEL ([id number]) 2018-11-18 16:08:00 Test Item Value Reference Range Interpretation Comme nts NA (test code = 5047470249) 142 mmol/L 135-145 K (test code = 4509647909) 4.3 mmol/L 3.5-5 CL (test code = 7001194034) 104 mmol/L 98-108 CO2 TOTAL (test code = 2697978768) 27 mmol/L 23-31 AGAP (test code = 1260466296) 2-16 BUN (test code = 8855179532) 11 mg/dL 7-23 GLUCOSE (test code = 9725819040) 149 mg/dL 70-110 H CREATININE (test code = 0.85 mg/dL 0.6-1.25 3504249012) TOTAL BILI (test code = 0.5 mg/dL 0.1-1.8 0602931881) CALCIUM (test code = 8181550935) 9.5 mg/dL 8.6-10.6 T PROTEIN (test code = 5340641525) 7.8 g/dL 6.3-8.2 ALBUMIN (test code = 0478714181) 4.4 g/dL 3.5-5 ALK PHOS (test code = 4642049038) 50 U/L 34-122 ALT(SGPT) (test code = 3526880724) 52 U/L 9-51 H AST(SGOT) (test code = 5695312430) 49 U/L 13-40 H eGFR Calculation (Non- mL/min/1.73m2 Somali) (test code = 2286894402) eGFR Calculation ( mL/min/1.73m2 Somali) (test code = 4985129081) IVETH (test code = IVETH) Association of Glomerular Filtration Rate (GFR) and Staging of Kidney Disease*+ + + +| GFR (mL/min/1.73 m2)?| With Kidney Damage?|?Without Kidney Damage+ +-- + +|?>90?|?Stage one?|? Normal?+ +- + +|?60-89?|?Stage two?|? Decreased GFR? + +-------- + ------+|?30-59?|?Stage three?|? Stage three? + +-------- + ------+|?15-29?|?Stage four? |? Stage four?+ +--- + +|?<15 (or dialysis)?|?Stage five? |? Stage five?+ +--- + +*Each stage assumes the associated GFR level has been in effect for at least three months.?Stages 1 to 5, with or without kidney disease, indicate chronic kidney disease.Notes: Determination of stages one and two (with eGFR >59mL/min/1.73 m2) requires estimation of kidney damage for at least three months as defined by structural or functional abnormalities of the kidney, manifested by either:Pathological abnormalities or Markers of kidney damage (including abnormalities in the composition of the blood or urine or abnormalities in imaging tests). Lab Interpretation (test code = Abnormal 37571-3) [facility] ([id number])2018-11-18 16:08:00 Test Item Value Reference Range Interpretation Comments NA (test code = 142 mmol/L 135-145 1031538369) K (test code = 4.3 mmol/L 3.5-5 6109269467) CL (test code = 104 mmol/L 98-108 1868487704) CO2 TOTAL (test code = 27 mmol/L 23-31 1685178770) AGAP (test code = 2-16 2374309823) BUN (test code = 11 mg/dL 7-23 5246171772) GLUCOSE (test code = 149 mg/dL 70-110 H 9461449794) CREATININE (test code = 0.85 mg/dL 0.6-1.25 0098907010) TOTAL BILI (test code = 0.5 mg/dL 0.1-1.2 2632436388) CALCIUM (test code = 9.5 mg/dL 8.6-10.6 5061937875) T PROTEIN (test code = 7.8 g/dL 6.3-8.2 0375329889) ALBUMIN (test code = 4.4 g/dL 3.5-5 4049951240) ALK PHOS (test code = 50 U/L 34-122 9366369461) ALT(SGPT) (test code = 52 U/L 9-51 H 3880042042) AST(SGOT) (test code = 49 U/L 13-40 H 9550452702) eGFR Calculation mL/min/1.73m2 (Non-) (test code = 4743892082) eGFR Calculation mL/min/1.73m2 () (test code = 1980544012) IVETH (test code = IVETH) Association of Glomerular Filtration Rate (GFR) and Staging of Kidney Disease*+ + + +| GFR (mL/min/1.73 m2)?| With Kidney Damage?|?Without Kidney Damage+ --------+ --------+ +|?>90?|?S tage one?|? Normal?+ ---------+ ---------+ +|?60-89? |?Stage two?|? Decreased GFR? + --+ --+ ------+|?30-59?|?Stage three?|? Stage three? + --+ --+ ------+|?15-29?|?Stage four? |? Stage four?+ -------+ -------+ +|?<15 (or dialysis)?|?Stage five? |? Stage five?+ -------+ -------+ +*Each stage assumes the associated GFR level has been in effect for at least three months.?Stages 1 to 5, with or without kidney disease, indicate chronic kidney disease.Notes: Determination of stages one and two (with eGFR >59mL/min/1.73 m2) requires estimation of kidney damage for at least three months as defined by structural or functional abnormalities of the kidney, manifested by either:Pathological abnormalities or Markers of kidney damage (including abnormalities in the composition of the blood or urine or abnormalities in imaging tests). Lab Interpretation Abnormal (test code = 48702-1) [facility]. METABOLIC PANEL ([id number])2018-11-18 16:08:00 Test Item Value Reference Range Interpretation Comments NA (test code = 142 mmol/L 135-145 9740443911) K (test code = 4.3 mmol/L 3.5-5 4786205830) CL (test code = 104 mmol/L 98-108 9974231496) CO2 TOTAL (test code = 27 mmol/L 23-31 8986908025) AGAP (test code = 2-16 3800562737) BUN (test code = 11 mg/dL 7-23 7275664402) GLUCOSE (test code = 149 mg/dL 70-110 H 2012711134) CREATININE (test code = 0.85 mg/dL 0.6-1.25 8168000837) TOTAL BILI (test code = 0.5 mg/dL 0.1-1.2 5740437939) CALCIUM (test code = 9.5 mg/dL 8.6-10.6 4664827430) T PROTEIN (test code = 7.8 g/dL 6.3-8.2 5773393382) ALBUMIN (test code = 4.4 g/dL 3.5-5 8629760677) ALK PHOS (test code = 50 U/L 34-122 0330391233) ALT(SGPT) (test code = 52 U/L 9-51 H 6321825064) AST(SGOT) (test code = 49 U/L 13-40 H 0044202733) eGFR Calculation mL/min/1.73m2 (Non-) (test code = 1666500410) eGFR Calculation mL/min/1.73m2 () (test code = 5151656942) IVETH (test code = IVETH) Association of Glomerular Filtration Rate (GFR) and Staging of Kidney Disease*+ + + +| GFR (mL/min/1.73 m2)?| With Kidney Damage?|?Without Kidney Damage+ --------+ --------+ +|?>90?|?S kathy one?|? Normal?+ ---------+ ---------+ +|?60-89? |?Stage two?|? Decreased GFR? + --+ --+ ------+|?30-59?|?Stage three?|? Stage three? + --+ --+ ------+|?15-29?|?Stage four? |? Stage four?+ -------+ -------+ +|?<15 (or dialysis)?|?Stage five? |? Stage five?+ -------+ -------+ +*Each stage assumes the associated GFR level has been in effect for at least three months.?Stages 1 to 5, with or without kidney disease, indicate chronic kidney disease.Notes: Determination of stages one and two (with eGFR >59mL/min/1.73 m2) requires estimation of kidney damage for at least three months as defined by structural or functional abnormalities of the kidney, manifested by either:Pathological abnormalities or Markers of kidney damage (including abnormalities in the composition of the blood or urine or abnormalities in imaging tests). Lab Interpretation Abnormal (test code = 38613-8) [facility] WITH [id number] 15:47:00 Test Item Value Reference Range Interpretation Comments WBC (test code = See_Comment [Automated 6690-2) message] The sy stem which generated this result transmitted reference range : 4.20 - 10.70 10*3/?L. The reference range was not used to interpret this result as normal/abnormal . RBC (test code = See_Comment [Automated 789-8) message] The sy stem which generated this result transmitted reference range : 4.26 - 5.52 10*6/?L. The reference range was not used to interpret this result as normal/abnormal . HGB (test code = 15.9 g/dL 12.2-16.4 718-7) HCT (test code = 47.8 % 38.4-49.3 4544-3) MCV (test code = 91.6 fL 81.7-95.6 787-2) MCH (test code = 30.5 pg 26.1-32.7 785-6) MCHC (test code = 33.3 g/dL 31.2-35 786-4) RDW-SD (test code = 40.2 fL 38.5-51.6 11420-4) RDW-CV (test code = 11.9 % 12.1-15.4 L 788-0) PLT (test code = See_Comment [Automated 777-3) message] The sy stem which generated this result transmitted reference range : 150 - 328 10*3/ ?L. The reference r major was not used to interpret this result as normal/abnormal . MPV (test code = 9.9 fL 9.8-13 56160-9) NRBC/100 WBC (test See_Comment [Automat ed code = 9304208028) message] The system which generated this result transmitted reference range : 0.0 - 10.0 /100 WBCs. The refer ence range was not u sed to interpret th is result as normal/abnormal . NRBC x10^3 (test code <0.01 See_Comment [Auto mated = 0301755982) message] The s ystem which generated this result transmitted reference range : 10*3/?L. The reference range was not used to interpret this result as normal/abnormal . GRAN MAT (NEUT) % 52.4 % (test code = 770-8) IMM GRAN % (test code 0.20 % = 5147922238) LYMPH % (test code = 39.4 % 736-9) MONO % (test code = 6.1 % 5905-5) EOS % (test code = 1.4 % 713-8) BASO % (test code = 0.5 % 706-2) GRAN MAT x10^3(ANC) 3.11 10*3/uL 1.99-6.95 (test code = 2303585163) IMM GRAN x10^3 (test <0.03 0-0.06 code = 3982432696) LYMPH x10^3 (test code 2.33 10*3/uL 1.09-3.23 = 731-0) MONO x10^3 (test code 0.36 10*3/uL 0.36-1.02 = 742-7) EOS x10^3 (test code = 0.08 10*3/uL 0.06-0.53 711-2) BASO x10^3 (test code 0.03 10*3/uL 0.01-0.09 = 704-7) Lab Interpretation Abnormal (test code = 89652-0) [facility] WITH [id number] 15:47:00 Test Item Value Reference Range Interpretation Comments WBC (test code = See_Comment [Automated 0690-2) message] The sy stem which generated this result transmitted reference range : 4.20 - 10.70 10*3/?L. The reference range was not used to interpret this result as normal/abnormal . RBC (test code = See_Comment [Automated 630-8) message] The sy stem which generated this result transmitted reference range : 4.26 - 5.52 10*6/?L. The reference range was not used to interpret this result as normal/abnormal . HGB (test code = 15.9 g/dL 12.2-16.4 718-7) HCT (test code = 47.8 % 38.4-49.3 4544-3) MCV (test code = 91.6 fL 81.7-95.6 787-2) MCH (test code = 30.5 pg 26.1-32.7 785-6) MCHC (test code = 33.3 g/dL 31.2-35 786-4) RDW-SD (test code = 40.2 fL 38.5-51.6 43109-2) RDW-CV (test code = 11.9 % 12.1-15.4 L 788-0) PLT (test code = See_Comment [Automated 777-3) message] The sy stem which generated this result transmitted reference range : 150 - 328 10*3/ ?L. The reference r major was not used to interpret this result as normal/abnormal . MPV (test code = 9.9 fL 9.8-13 79548-9) NRBC/100 WBC (test See_Comment [Automat ed code = 8354401144) message] The system which generated this result transmitted reference range : 0.0 - 10.0 /100 WBCs. The refer ence range was not u sed to interpret th is result as normal/abnormal . NRBC x10^3 (test code <0.01 See_Comment [Auto mated = 7655267287) message] The s ystem which generated this result transmitted reference range : 10*3/?L. The reference range was not used to interpret this result as normal/abnormal . GRAN MAT (NEUT) % 52.4 % (test code = 770-8) IMM GRAN % (test code 0.20 % = 7023632605) LYMPH % (test code = 39.4 % 736-9) MONO % (test code = 6.1 % 5905-5) EOS % (test code = 1.4 % 713-8) BASO % (test code = 0.5 % 706-2) GRAN MAT x10^3(ANC) 3.11 10*3/uL 1.99-6.95 (test code = 8308177366) IMM GRAN x10^3 (test <0.03 0-0.06 code = 6383996480) LYMPH x10^3 (test code 2.33 10*3/uL 1.09-3.23 = 731-0) MONO x10^3 (test code 0.36 10*3/uL 0.36-1.02 = 742-7) EOS x10^3 (test code = 0.08 10*3/uL 0.06-0.53 711-2) BASO x10^3 (test code 0.03 10*3/uL 0.01-0.09 = 704-7) Lab Interpretation Abnormal (test code = 37362-5) [facility] WITH [id number] 15:47:00 Test Item Value Reference Range Interpretation Comments WBC (test code = See_Comment [Automated 6690-2) message] The sy stem which generated this result transmitted reference range : 4.20 - 10.70 10*3/?L. The reference range was not used to interpret this result as normal/abnormal . RBC (test code = See_Comment [Automated 789-8) message] The sy stem which generated this result transmitted reference range : 4.26 - 5.52 10*6/?L. The reference range was not used to interpret this result as normal/abnormal . HGB (test code = 15.9 g/dL 12.2-16.4 718-7) HCT (test code = 47.8 % 38.4-49.3 4544-3) MCV (test code = 91.6 fL 81.7-95.6 787-2) MCH (test code = 30.5 pg 26.1-32.7 785-6) MCHC (test code = 33.3 g/dL 31.2-35 786-4) RDW-SD (test code = 40.2 fL 38.5-51.6 91433-0) RDW-CV (test code = 11.9 % 12.1-15.4 L 788-0) PLT (test code = See_Comment [Automated 777-3) message] The sy stem which generated this result transmitted reference range : 150 - 328 10*3/ ?L. The reference r major was not used to interpret this result as normal/abnormal . MPV (test code = 9.9 fL 9.8-13 64937-3) NRBC/100 WBC (test See_Comment [Automat ed code = 3856040393) message] The system which generated this result transmitted reference range : 0.0 - 10.0 /100 WBCs. The refer ence range was not u sed to interpret th is result as normal/abnormal . NRBC x10^3 (test code <0.01 See_Comment [Auto mated = 7319109729) message] The s ystem which generated this result transmitted reference range : 10*3/?L. The reference range was not used to interpret this result as normal/abnormal . GRAN MAT (NEUT) % 52.4 % (test code = 770-8) IMM GRAN % (test code 0.20 % = 2905186447) LYMPH % (test code = 39.4 % 736-9) MONO % (test code = 6.1 % 5905-5) EOS % (test code = 1.4 % 713-8) BASO % (test code = 0.5 % 706-2) GRAN MAT x10^3(ANC) 3.11 10*3/uL 1.99-6.95 (test code = 8045991482) IMM GRAN x10^3 (test <0.03 0-0.06 code = 0868034558) LYMPH x10^3 (test code 2.33 10*3/uL 1.09-3.23 = 731-0) MONO x10^3 (test code 0.36 10*3/uL 0.36-1.02 = 742-7) EOS x10^3 (test code = 0.08 10*3/uL 0.06-0.53 711-2) BASO x10^3 (test code 0.03 10*3/uL 0.01-0.09 = 704-7) Lab Interpretation Abnormal (test code = 66626-4) [facility] WITH [id number] 15:47:00 Test Item Value Reference Range Interpretation Comments WBC (test code = See_Comment [Automated 5071-2) message] The sy stem which generated this result transmitted reference range : 4.20 - 10.70 10*3/?L. The reference range was not used to interpret this result as normal/abnormal . RBC (test code = See_Comment [Automated 685-8) message] The sy stem which generated this result transmitted reference range : 4.26 - 5.52 10*6/?L. The reference range was not used to interpret this result as normal/abnormal . HGB (test code = 15.9 g/dL 12.2-16.4 718-7) HCT (test code = 47.8 % 38.4-49.3 4544-3) MCV (test code = 91.6 fL 81.7-95.6 787-2) MCH (test code = 30.5 pg 26.1-32.7 785-6) MCHC (test code = 33.3 g/dL 31.2-35 786-4) RDW-SD (test code = 40.2 fL 38.5-51.6 38398-9) RDW-CV (test code = 11.9 % 12.1-15.4 L 788-0) PLT (test code = See_Comment [Automated 777-3) message] The sy stem which generated this result transmitted reference range : 150 - 328 10*3/ ?L. The reference r major was not used to interpret this result as normal/abnormal . MPV (test code = 9.9 fL 9.8-13 38038-8) NRBC/100 WBC (test See_Comment [Automat ed code = 3800676912) message] The system which generated this result transmitted reference range : 0.0 - 10.0 /100 WBCs. The refer ence range was not u sed to interpret th is result as normal/abnormal . NRBC x10^3 (test code <0.01 See_Comment [Auto mated = 4328534680) message] The s ystem which generated this result transmitted reference range : 10*3/?L. The reference range was not used to interpret this result as normal/abnormal . GRAN MAT (NEUT) % 52.4 % (test code = 770-8) IMM GRAN % (test code 0.20 % = 4135673548) LYMPH % (test code = 39.4 % 736-9) MONO % (test code = 6.1 % 5905-5) EOS % (test code = 1.4 % 713-8) BASO % (test code = 0.5 % 706-2) GRAN MAT x10^3(ANC) 3.11 10*3/uL 1.99-6.95 (test code = 0661080155) IMM GRAN x10^3 (test <0.03 0-0.06 code = 6090668157) LYMPH x10^3 (test code 2.33 10*3/uL 1.09-3.23 = 731-0) MONO x10^3 (test code 0.36 10*3/uL 0.36-1.02 = 742-7) EOS x10^3 (test code = 0.08 10*3/uL 0.06-0.53 711-2) BASO x10^3 (test code 0.03 10*3/uL 0.01-0.09 = 704-7) Lab Interpretation Abnormal (test code = 33140-4) [facility] WITH [id number] 15:47:00 Test Item Value Reference Range Interpretation Comments WBC (test code = See_Comment [Automated 8290-2) message] The sy stem which generated this result transmitted reference range : 4.20 - 10.70 10*3/?L. The reference range was not used to interpret this result as normal/abnormal . RBC (test code = See_Comment [Automated 789-8) message] The sy stem which generated this result transmitted reference range : 4.26 - 5.52 10*6/?L. The reference range was not used to interpret this result as normal/abnormal . HGB (test code = 15.9 g/dL 12.2-16.4 718-7) HCT (test code = 47.8 % 38.4-49.3 4544-3) MCV (test code = 91.6 fL 81.7-95.6 787-2) MCH (test code = 30.5 pg 26.1-32.7 785-6) MCHC (test code = 33.3 g/dL 31.2-35 786-4) RDW-SD (test code = 40.2 fL 38.5-51.6 15633-5) RDW-CV (test code = 11.9 % 12.1-15.4 L 788-0) PLT (test code = See_Comment [Automated 777-3) message] The sy stem which generated this result transmitted reference range : 150 - 328 10*3/ ?L. The reference r major was not used to interpret this result as normal/abnormal . MPV (test code = 9.9 fL 9.8-13 83739-1) NRBC/100 WBC (test See_Comment [Automat ed code = 9095429475) message] The system which generated this result transmitted reference range : 0.0 - 10.0 /100 WBCs. The refer ence range was not u sed to interpret th is result as normal/abnormal . NRBC x10^3 (test code <0.01 See_Comment [Auto mated = 1026243655) message] The s ystem which generated this result transmitted reference range : 10*3/?L. The reference range was not used to interpret this result as normal/abnormal . GRAN MAT (NEUT) % 52.4 % (test code = 770-8) IMM GRAN % (test code 0.20 % = 6275895104) LYMPH % (test code = 39.4 % 736-9) MONO % (test code = 6.1 % 5905-5) EOS % (test code = 1.4 % 713-8) BASO % (test code = 0.5 % 706-2) GRAN MAT x10^3(ANC) 3.11 10*3/uL 1.99-6.95 (test code = 0226906616) IMM GRAN x10^3 (test <0.03 0-0.06 code = 2968383838) LYMPH x10^3 (test code 2.33 10*3/uL 1.09-3.23 = 731-0) MONO x10^3 (test code 0.36 10*3/uL 0.36-1.02 = 742-7) EOS x10^3 (test code = 0.08 10*3/uL 0.06-0.53 711-2) BASO x10^3 (test code 0.03 10*3/uL 0.01-0.09 = 704-7) Lab Interpretation Abnormal (test code = 92371-9) [facility]"
[2021-08-11] MEDS ORDERED: LIDOCAINE 1% 20 ML MDV ONE (17:34)
[2021-08-11] MEDS ORDERED: HYDROCODONE/APAP 10/325 TAB ONE (18:31)
--- NOTE | 2021-08-11 18:52 | EDPHYS ---
Physician Documentation [facility] Name: Marvin Chow Age: 46 yrs Sex: Male : 1975 Arrival Date: 08/11/2021 Time: 16:27 Bed 25 Private MD: OLIVIER Physician Josse Puri HPI: 08/11 16:35 This 46 yrs old Male presents to ER via Ambulatory with complaints of boil/cyst back of jh7 neck. 16:35 Onset: The symptoms/episode began/occurred 1 week(s) ago. Patient reports boil on the jh7 back of the neck for 1 week. States that he has had abscesses before, but that this 1 is worse. States that it has been draining "cream cheese" all week. Reports that the area is extremely tender. Denies fever, chills, or any other symptoms at this time.. Historical: - Allergies: 16:33 No Known Allergies; ld1 - PMHx: 16:33 heart flutter; Hypertension; ld1 - PSHx: 16:33 None; ld1 - Immunization history:: Adult Immunizations up to date, Client reports having NOT received the Covid vaccine. - Social history:: Smoking status: Patient denies any tobacco usage or history of. Patient/guardian denies using alcohol. ROS: 16:35 Constitutional: Negative for fever, chills, and weight loss, Neck: Negative for injury jh7 Cardiovascular: Negative for chest pain, palpitations, and edema, Respiratory: Negative for shortness of breath, cough, wheezing, and pleuritic chest pain. 16:35 Neuro: Negative for headache, weakness, numbness, tingling, and seizure. 16:35 Skin: Positive for abscess, erythema, swelling. 16:35 All other systems are negative. Exam: 16:35 Constitutional: This is a well developed, well nourished patient who is awake, alert, jh7 and in no acute distress. Neck: Trachea midline, no thyromegaly or masses palpated, and no cervical lymphadenopathy. Supple, full range of motion without nuchal rigidity, or vertebral point tenderness. No Meningismus. Cardiovascular: Regular rate and rhythm with a normal S1 and S2. No gallops, murmurs, or rubs. Normal PMI, no JVD. No pulse deficits. Respiratory: Lungs have equal breath sounds bilaterally, clear to auscultation and percussion. No rales, rhonchi or wheezes noted. No increased work of breathing, no retractions or nasal flaring. Back: No spinal tenderness. No costovertebral tenderness. Full range of motion. Neuro: Awake and alert, GCS 15, oriented to person, place, time, and situation. Sensory grossly intact. Normal gait. 16:35 Neck: ROM/movement: is normal, is supple. 16:35 Skin: abscess, that is large, approximately 8 cm(s), of the neck, with drainage, with induration, with surrounding cellulitis, 8 cm abscess currently draining thick, chunky, purulent drainage. There are several small areas of fluctuance, but the area is indurated with some surrounding cellulitis present. Vital Signs: 16:32 BP 146 / 134; Pulse 97; Resp 18; Temp 97.8(TE); Pulse Ox 99% on R/A; Weight 97.52 kg; ld1 Height 5 ft. 10 in. (177.80 cm); Pain 6/10; 16:32 Body Mass Index 30.85 (97.52 kg, 177.80 cm) ld1 Procedures: 17:45 I \\T\\ D: Incision and drainage was performed for an abscess of the neck Prepped with [facility] Betadine, Anesthetized with 10 ml's 1% Lidocaine. Bupivicaine 5mL. Incised with #10 blade. Drained moderate amount purulent fluid. bloody fluid. Loculations removed. Dressing: non-Adherent dressing, the patient tolerated the procedure poorly, . [facility]: 16:35 Patient medically screened. [facility] 17:45 Differential diagnosis: abscess. Data reviewed: vital signs, nurses notes. Data [facility] interpreted: Pulse oximetry: is 99 %. Interpretation: normal. Counseling: I had a detailed discussion with the patient and/or guardian regarding: the historical points, exam findings, and any diagnostic results supporting the discharge/admit diagnosis, the need for outpatient follow up, a general surgeon, to return to the emergency department if symptoms worsen or persist or if there are any questions or concerns that arise at home. ED course: Informed the patient that he will likely need to follow-up with general surgery for further eval. Informed him that the abscess itself was actually somewhat superficial, and that packing was not needed at this time. Informed him that we would prescribe him antibiotics and pain meds. Advised to warm compress the area at home, and that if he developed a fever, increased pain, or any other concerning symptoms, he would follow-up in the ER for further care.. 08/11 17:14 Order name: I\\T\\D Setup; Complete Time: 17:20 [facility] 08/11 18:50 Order name: Wound dressing [facility] Administered Medications: 18:27 Drug: [place] (HYDROcodone-acetaminophen) 10 mg-325 mg 1 tabs Route: PO; Disposition Summary: 08/11/21 18:51 Discharge Ordered Location: Home [facility] Problem: new [facility] Symptoms: have improved [facility] Condition: Stable [facility] Diagnosis - Cutaneous abscess, furuncle and carbuncle of other sites [facility] Followup: [facility] - With: Radames Rob MD - When: 1 - 2 days - Reason: Further diagnostic work-up Discharge Instructions: - Discharge Summary Sheet [facility] - Skin Abscess [facility] - Cellulitis, Adult [facility] Forms: - Medication Reconciliation Form [facility] - Thank You Letter [facility] - Antibiotic Education [facility] - Prescription Opioid Use [facility] Prescriptions: - Tramadol 50 mg Oral Tablet - take 1 tablet by ORAL route every 8 hours as needed; 12 tablet; Refills: 0, [facility] Product Selection Permitted - Bactrim DS 800-160 mg Oral Tablet - take 1 tablet by ORAL route every 12 hours for 10 days; 20 tablet; Refills: 0, [facility] Product Selection Permitted Signatures: Thony Rodriguez PA PA jmm Dibbern, Lauren, RN RN ld1 Denita Yeager RN RN Carlie Berumen FNP PLUG SAW OPERATOR [facility] Corrections: (The following items were deleted from the chart) 20:08 16:35 I \\T\\ D: Incision and drainage was performed for an abscess of the neck Prepped [facility] with Betadine, Anesthetized with 10 ml's 1% Lidocaine. Bupivicaine 5mL. Incised with #10 blade. Drained moderate amount purulent fluid. bloody fluid. Loculations removed. Dressing: non-Adherent dressing, the patient tolerated the procedure poorly, , [facility]
--- NOTE | 2021-08-11 18:52 | ER ---
Nurse's Notes [facility] Name: Marvin Chow Age: 46 yrs Sex: Male : 1975 Arrival Date: 08/11/2021 Time: 16:27 Bed 25 Private MD: Diagnosis: Cutaneous abscess, furuncle and carbuncle of other sites Presentation: 08/11 16:32 Chief complaint: Patient states: boil on back of neck - started on sunday. Coronavirus ld1 screen: At this time, the client does not indicate any symptoms associated with coronavirus-19. Ebola Screen: No symptoms or risks identified at this time. Initial Sepsis Screen: Does the patient meet any 2 criteria? No. Patient's initial sepsis screen is negative. Does the patient have a suspected source of infection? No. Patient's initial sepsis screen is negative. Risk Assessment: Do you want to hurt yourself or someone else? Patient reports no desire to harm self or others. Onset of symptoms was August 11, 2021 at 16:33. 16:32 Method Of Arrival: Ambulatory ld1 16:32 Acuity: GERARDO 4 ld1 Triage Assessment: 16:33 General: Appears in no apparent distress. comfortable, Behavior is cooperative, ld1 anxious. Pain: Complains of pain in base of the skull. EENT: No signs and/or symptoms were reported regarding the EENT system. Neuro: Level of Consciousness is awake, alert, obeys commands, Oriented to person, place, time, situation. Respiratory: Airway is patent Respiratory effort is even, unlabored. Derm: Wound noted base of the skull. Historical: - Allergies: 16:33 No Known Allergies; ld1 - PMHx: 16:33 heart flutter; Hypertension; ld1 - PSHx: 16:33 None; ld1 - Immunization history:: Adult Immunizations up to date, Client reports having NOT received the Covid vaccine. - Social history:: Smoking status: Patient denies any tobacco usage or history of. Patient/guardian denies using alcohol. Screenin:33 Abuse screen: Denies threats or abuse. Denies injuries from another. Nutritional [place] screening: No deficits noted. Tuberculosis screening: No symptoms or risk factors identified. Fall Risk None identified. Assessment: 17:33 General: Appears in no apparent distress. Pain: Complains of pain in back of neck. [place] Derm: Abscess is baseball size Reports pain that is 6 out of 10 on a pain scale. Vital Signs: 16:32 BP 146 / 134; Pulse 97; Resp 18; Temp 97.8(TE); Pulse Ox 99% on R/A; Weight 97.52 kg; ld1 Height 5 ft. 10 in. (177.80 cm); Pain 6/10; 16:32 Body Mass Index 30.85 (97.52 kg, 177.80 cm) 1 ED Course: 16:27 Patient arrived in ED. am2 16:33 Triage completed. ld1 16:33 Arm band placed on right wrist. 1 16:35 [facility] Berumen F[facility] 7 16:35 Josse Puri MD is Attending Physician. 7 17:24 Denita Yeager, RN is Primary Nurse. [place] 17:33 Patient has correct armband on for positive identification. Bed in low position. [place] 17:33 No provider procedures requiring assistance completed. [place] 18:51 Radames Rob MD is Referral Physician. [facility] 19:01 Patient did not have IV access during this emergency room visit. [place] Administered Medications: 18:27 Drug: [place] (HYDROcodone-acetaminophen) 10 mg-325 mg 1 tabs Route: PO; [place] Medication: 17:33 VIS not applicable for this client. [place] Outcome: 18:51 Discharge ordered by . 7 19:01 Discharged to home ambulatory, with family. [place] 19:01 Condition: good 19:01 Discharge instructions given to patient, family, Prescriptions given X 2. 19:01 Patient left the ED. [place] Signatures: Lillie Valencia 2 Mary Potts, RN RN 1 Denita Yeager, CM RN Carlie Berumen FNP FUNDS TRANSFER CLERK [facility]
[2021-08-11 19:26] VITALS: BP 146/134; TEMP 97.8; O2SAT 99
== END 2021-08-11 19:01 | disposition home or self-care (01) ==
LOC: ER 16:25
PROC: 0W960ZZ Drainage of Neck, Open Approach (ICD-10-PCS; principal; 2021-08-11)
DX: L02.11 Cutaneous abscess of neck (principal); I10 Essential (primary) hypertension
CPT/HCPCS: 99283

== ENCOUNTER 2021-12-13 11:04 | Emergency (ER) | payer SELFPAY ==
--- OUTSIDE RECORDS SUMMARY | 2021-12-13 11:07 | XMS REPORT | Continuity of Care Document ---
:1975 Author Organization [facility] t Address [address] [place] [address] Dr. Iverson. [address] [place] [address] Care Team Providers Name Role Phone PCP, PATIENT DOES NOT HAVE A Primary Care Physician STEVEN Mi Attending Clinician Unavailable Steven Ugarte MDHRadha Attending Clinician Doctor Unassigned, [place] Attending Clinician Unavailable Tk Vernon Attending Clinician Leonela Baker Attending Clinician Mandeep Rivera MD Attending Clinician Xavi Serrano MD Attending Clinician Surgery, Tdc General Attending Clinician Unavailable STEVEN UGARTE K.HRadha Admitting Clinician Unavailable Mandeep Rivera MD Admitting Clinician Payers Payer Name [...] ally from Medical request Branch for surgery [id number] Right Right Disease Active Univers inguinal inguinal 7-14 ity of hernia hernia 00:00: [place] [address] Medical Branch No known No known Disease Unive rs active active ity of problems problems [facility] Allergies, Adverse Reactions, Alerts Allergy Allergy Status Severity Reaction(s) Onset Inactive Treating Comm ents Source Name Type Date Date Clinician Amlodipi Propensi Active Swelling Univ ers ne ty to 7-31 ity of adverse 00:00: [place] reaction 00 Medical s Branch NO KNOWN Drug Active Univers ALLERGIE Class ity of S [facility] Social History Social Habit Start Date Stop Date Quantity Comments Source History of Cigarette Smoker [facility] of tobacco use [facility] Exposure to Not sure University of SARS-CoV-2 [place] [facility] (event) Branch Alcohol intake 2018-12-04 2018-12-04 University of 00:00:00 00:00:00 [facility] Tobacco Comment 2016-10-06 2016-10-06 quit 10 yrs ago Univ ersity of 00:00:00 00:00:00 [facility] Alcohol Comment 2016-10-06 2016-10-06 quit 7 yrs ago Unive rsity of 00:00:00 00:00:00 [facility] Sex Assigned At [birth year] [facility] y of 00:00:00 00:00:00 [facility] Smoking Status Start Date Stop Date Source Unknown if ever smoked [facility] Former smoker 2018-12-04 00:00:00 2018-12-04 00:00:00 [facility] Medications Ordered Filled Start Stop Current Ordering Indication Dosage Frequency Signature Comments Components Source Medication Medication Date Date Medication? Clinician (SIG) Name Name No known No Univers medications 2-28 ity of 09:43: [place] 54 [facility] Branch carvediloL Yes [id number] 12.5mg Take 1 Univers 12.5 mg 2-28 tablet by ity of tablet 00:00: mouth 2 [place] 00 (two) Medical times [place] daily with meals. RANITIDINE 2019- No Take by Uni vers HCL ORAL 12-04 mouth as ity of 03:40: 00:00 needed. [place] 04 [facility] acetaminoph Yes 1{tbl} 1 tablet, Univers en-codeine 12-04 Oral, ity of (TYLENOL 02:36: Q6HPRN, [place] #3) 300-30 42 Starting Medic al mg tablet 1 e [place] tablet 12/03/18 at 2136, Until Discontinu ed, Routine, Pain (scale 4-6), Pain (scale 7-10) acetaminoph 2019- No 1{tbl} 1 tablet, Univers en-codeine 12-03 Oral, PRN, it y of (TYLENOL 18:03: 18:31 1 dose, [place] #3) 300-30 16 :00 Starting Medic al mg tablet 1 Tue Branch tablet 12/03/18 at 1303, Until Sun12/03/18 at 1331, Routine, Pain (scale 7-10), DSU Recovery lidocaine 2018- No ONCE INTRA U nivers 2% 12-03 PROCEDURE, ity of (XYLOCAINE) 16:25: 23:18 Starting [place] 20 mg/mL (2 00 :48 Tue Medical %) 12/03/18 at Branch injection 1125, Until e 12/03/18 at 1818, Routine, Intra-op bupivacaine 2018- No ONCE INTRA Univers (preserv 12-03 PROCEDURE, ity of free) 0.5% 16:25: 23:18 [place] (SENSORCAIN 00 :43 Tue Medical E MPF) 0.5 12/03/18 at Bra nch % (5 mg/mL) 1125, injection Until e 12/03/18 at 1818, Routine, Intra-op lidocaine 2018- No ONCE INTRA U nivers 2% 12-03 PROCEDURE, ity of (XYLOCAINE) 16:25: 23:18 Starting [place] 20 mg/mL (2 00 :48 Tue Medical %) 12/03/18 at Branch injection 1125, Until Sun12/03/18 at 1818, Routine, Intra-op bupivacaine 2018- No ONCE INTRA Univers (preserv 12-03 PROCEDURE, ity of free) 0.5% 16:25: 23:18 [place] (SENSORCAIN 00 :43 Tue Medical E MPF) 0.5 12/03/18 at Bra nch % (5 mg/mL) 1125, injection Until e 12/03/18 at 1818, Routine, Intra-op FENTanyl PF 2019- No 25ug 25 mcg, Un manolo (SUBLIMAZE 12-03 Slow IV ity o f (PF)) 15:42: 16:10 Push, [place] injection 05 :00 Q5MIN PRN, Medi mark 25 mcg 4 doses, Branch Starting 12/03/18 at 1042, Until Sun12/03/18 at 1110, Routine, Pain (scale 7-10), PACU sugammadex 2019- No ONCE INTRA Univers (BRIDION) 12-03 PROCEDURE, ity of injection 15:35: 16:00 Starting [place] 00 :50 Tue Medical 12/03/18 at Branch 1035, Until Tu12/03/18 at 1100, Routine, Intra-op sugammadex 2019- No ONCE INTRA Univers (BRIDION) 12-03 PROCEDURE, ity of injection 15:35: 16:00 Starting [place] 00 :50 Tue Medical 12/03/18 at Branch 1035, Until 12/03/18 at 1100, Routine, Intra-op sugammadex 2019- No ONCE INTRA Univers (BRIDION) 12-03 PROCEDURE, ity of injection 15:35: 16:00 Starting [place] 00 :50 Tue Medical 12/03/18 at Branch 1035, Until Tu12/03/18 at 1100, Routine, Intra-op acetaminoph 2019- No IV Unive rs en ADULT 12-03 Infusion, ity o f ([facility]) 15:15: 16:00 Administer [place] injection 00 :50 over 15 Medical Minutes, Branch ONCE INTRA PROCEDURE, Starting 12/03/18 at 1015, Until Sun12/03/18 at 1100, Routine, Intra-op acetaminoph 2019- No IV Unive rs en ADULT 12-03 Infusion, ity o f ([facility]) 15:15: 16:00 Administer [place] injection 00 :50 over 15 Medical Minutes, Branch ONCE INTRA PROCEDURE, Starting 12/03/18 at 1015, Until 12/03/18 at 1100, Routine, Intra-op acetaminoph 2019- No IV Unive rs en ADULT 12-03 Infusion, ity o f ([facility]) 15:15: 16:00 Administer [place] injection 00 :50 over 15 Medical Minutes, Branch ONCE INTRA PROCEDURE, Starting 12/03/18 at 1015, Until Tu12/03/18 at 1100, Routine, Intra-op dexMEDEtomi 2019- No CONTINUOUS Univers dine 12-03 PRN, ity of (PRECEDEX) 15:03: 16:00 Starting [place] 20 mcg in 00 :50 Tue Medical NaCl 0.9% 12/03/18 at [facility] (NS) 1003, piggyback Until Tu12/03/18 at 1100, 50 mL, Intra-op dexMEDEtomi 2018- No CONTINUOUS Univers dine 12-03 PRN, ity of (PRECEDEX) 15:03: 16:00 Starting [place] 20 mcg in 00 :50 Tue Medical NaCl 0.9% 12/03/18 at [facility] (NS) 1003, piggyback Until 12/03/18 at 1100, 50 mL, Intra-op dexMEDEtomi 2018- No CONTINUOUS Univers dine 12-03 PRN, ity of (PRECEDEX) 15:03: 16:00 Starting [place] 20 mcg in 00 :50 Tue Medical NaCl 0.9% 12/03/18 at [facility] (NS) 1003, piggyback Until 12/03/18 at 1100, 50 mL, Intra-op ceFAZolin 2019- No ONCE INTRA U nivers (ANCEF) 12-03 PROCEDURE, ity o f injection 14:55: 16:00 Starting [place] 00 :50 Tue Medical 12/03/18 at Branch 0955, Until 12/03/18 at 1100, NEENA, Intra-op ceFAZolin 2019- No ONCE INTRA U nivers (ANCEF) 12-03 PROCEDURE, ity o f injection 14:55: 16:00 Starting [place] 00 :50 Tue Medical 12/03/18 at Branch 0955, Until 12/03/18 at 1100, NEENA, Intra-op ceFAZolin 2019- No ONCE INTRA U nivers (ANCEF) 12-03 PROCEDURE, ity o f injection 14:55: 16:00 Starting [place] 00 :50 Tue Medical 12/03/18 at Branch 0955, Until 12/03/18 at 1100, NEENA, Intra-op FENTanyl PF 2019- No Slow IV Un manolo (SUBLIMAZE [...] Until 12/03/18 at 1100, Routine, Intra-op rocuronium 2018-2018- No ONCE INTRA Univers (ZEMURON) 12-03 PROCEDURE, ity of injection 14:52: 16:00 Starting [place] 00 :50 Tue Medical 12/03/18 at Branch 0952, Until 12/03/18 at 1100, Routine, Intra-op FENTanyl PF 2018-2018- No Slow IV Un manolo (SUBLIMAZE 12-03 [...] Until 12/03/18 at 1100, Routine, Intra-op rocuronium 2019- No ONCE INTRA Univers (ZEMURON) 12-03 PROCEDURE, ity of injection 14:52: 16:00 Starting [place] 00 :50 Tue Medical 12/03/18 at Branch 0952, Until 12/03/18 at 1100, Routine, Intra-op FENTanyl PF 2018- 2019- No Slow [...] [place] 00 :50 PROCEDURE, Medical Starting Branch e 12/03/18 at 0952, Until 12/03/18 at 1100, Routine, Intra-op rocuronium 2019- No ONCE INTRA Univers (ZEMURON) 12-03 PROCEDURE, ity of injection 14:52: 16:00 Starting [place] 00 :50 Tue Medical 12/03/18 at Branch 0952, Until 12/03/18 at 1100, Routine, Intra-op lactated 2019- No IV Univers ringers IV 12-03 Infusion, ity of infusion 14:40: 16:00 CONTINUOUS [place] 00 :50 PRN, Medical Starting Branch e 12/03/18 at 0940, Until 12/03/18 at 1100, Routine, Intra-op lactated 2019- No IV Univers ringers IV 12-03 Infusion, ity of infusion 14:40: 16:00 CONTINUOUS [place] 00 :50 PRN, Medical Starting Branch Sun12/03/18 at 0940, Until Sun12/03/18 at 1100, Routine, Intra-op lactated 2019- No IV Univers ringers IV 12-03 Infusion, ity of infusion 14:40: 16:00 CONTINUOUS [place] 00 :50 PRN, Medical Starting Branch Sun12/03/18 at 0940, Until Sun12/03/18 at 1100, Routine, Intra-op acetaminoph 2019- No [id number] 1{tbl} Take 1 Univers en-codeine 12-03 tablet by ity of 300-30 mg 00:00: 04:59 mouth [place] tablet 00 :00 every 6 Medical (six) Branch hours as needed for Pain (scale 4-6) or Pain (scale 7-10) for up to 7 days. acetaminoph 2019- No [id number] 1{tbl} Take 1 Univers en-codeine 12-03 tablet by ity of 300-30 mg 00:00: 00:00 mouth [place] tablet 00 :00 every 6 Medical (six) Branch hours as needed for Pain (scale 4-6) or Pain (scale 7-10) for up to 7 days. RANITIDINE Yes Take by Univ ers HCL ORAL 9-09 mouth as ity of 15:59: needed. [facility] RANITIDINE Yes Take by Univ ers HCL ORAL 9-09 mouth as ity of 15:59: needed. [address] RANITIDINE Yes Take by Univ ers HCL ORAL 9-09 mouth as ity of 15:59: needed. [address] RANITIDINE Yes Take by Univ ers HCL ORAL 8-27 mouth as ity of 00:09: needed. [address] RANITIDINE Yes Take by Univ ers HCL ORAL 8-27 mouth as ity of 00:09: needed. [address] RANITIDINE Yes Take by Univ ers HCL ORAL 8-26 mouth as ity of 14:29: needed. [address] RANITIDINE Yes Take by Univ ers HCL ORAL 8-26 mouth as ity of 14:29: needed. [address] RANITIDINE Yes Take by Univ ers HCL ORAL 8-26 mouth as ity of 14:29: needed. [address] Branch RANITIDINE 2018-0 Yes Take by Univ ers HCL ORAL 8-26 mouth as ity of 14:29: needed. [address] Branch atenolol 50 2016-03 Yes 50mg Take [...] by ity of tablet 00:00: mouth 2 [place] 00 (two) Medical times Branch daily. hydroCHLORO [...] 1mg Take 1 Uni vers mg capsule 05-17 capsule by it y of 00:00: 00:00 mouth at [place] 00 :00 bedtime. Medical Branch No known No Univers medications ity of [facility] No known No Univers medications ity of [facility] No known No Univers medications ity of [facility] No known No Univers medications ity of [facility] No known No Univers medications ity of [facility] Vital Signs Vital Name Observation Time Observation Value Comments Source Systolic blood 2021-05-23 188 mm[Hg] University of pressure 15:46:00 [facility] Diastolic blood 2021-05-23 133 mm[Hg] University o f pressure 15:46:00 [facility] Heart rate 2021-05-23 99 /min University 15:46:00 [facility] Body height 2021-05-23 177.8 cm University of 15:42:00 [facility] Body weight 2021-05-23 102.711 kg University of 15:42:00 [facility] BMI 2021-05-23 32.49 kg/m2 University of 15:42:00 [facility] Oxygen saturation 2021-05-23 97 /min [facility] in Arterial blood 15:42:00 [facility] by Pulse oximetry [place] Systolic blood 2018-12-03 166 mm[Hg] notified nurse University of pressure 17:18:00 [facility] Diastolic blood 2018-12-03 98 mm[Hg] notified nurse University of pressure 17:18:00 [facility] Heart rate 2018-12-03 61 /min University of 17:18:00 [facility] Body temperature 2018-12-03 36.72 Nahomi University of 17:18:00 [facility] Respiratory rate 2018-12-03 20 /min University of 17:18:00 [facility] Oxygen saturation 2018-12-03 97 /min [facility] in Arterial blood 17:18:00 [facility] [place] mark by Pulse oximetry [place] Body height 2018-12-02 177.8 cm University of 17:50:00 [facility] Body weight 2018-12-02 92.08 kg University of 17:50:00 [facility] BMI 2018-12-02 29.13 kg/m2 University of 17:50:00 [facility] Systolic blood 2018-11-18 189 mm[Hg] University of pressure 14:59:00 [facility] Diastolic blood 2018-11-18 100 mm[Hg] [place] o pressure 14:59:00 [facility] Heart rate 2018-11-18 75 /min [facility] 14:59:00 [facility] Body temperature 2018-11-18 36.56 Nahomi [facility] 14:59:00 [facility] Body height 2018-11-18 177.8 cm University 14:59:00 [facility] Body weight 2018-11-18 91.627 kg [facility] 14:59:00 [facility] BMI 2018-11-18 28.98 kg/m2 University 14:59:00 [facility] Oxygen saturation 2018-11-18 99 /min [facility] Arterial blood 14:59:00 [facility] by Pulse oximetry Branch Procedures Procedure Date / Time Performing Clinician Source Performed AUTHORIZATION FOR 2021-05-16 06:01:00 Doctor Unassigned, No Univ [facility] RELEASE OF PHI Name Medical [place] XR CERVICAL SPINE 2 2019-05-07 14:17:02 [facility] L[facility] 2 2019-04-23 14:14:26 Leonela Baker [facility] XR HIPS 2 VW RIGHT 2019-04-23 14:14:05 Leonela Baker [facility] XR SHOULDER 2+ VW LEFT 2019-04-23 14:13:45 [facility] 2018-12-11 05:01:00 Doctor Unassigned, No Univ [facility] RECORDS Name Medical [place] NERVE BLOCK 2018-12-03 23:15:50 Romero Damon [facility] INTUBATION 2018-12-03 15:12:23 Xavi Serrano [place] o f [facility] CBC WITH DIFFERENTIAL 2018-11-18 15:33:00 Flash Coello [facility] COMP. METABOLIC PANEL 2018-11-18 15:33:[address] [facility] ([id number]) Medical [place] Encounters Start End Encounter Admission Attending Care Care Encounter Source Date/Time Date/Time Type Type Clinicians Facility Department ID 2021-07-22 2021-07-22 Outpatient Isa UGARTE [facility] [id number] [facility] 09:00:00 09:00:00 SENDIL ity [facility] 2021-07-22 2021-07-22 Outpatient R SHANEL [facility] [id number] Univers 09:00:00 09:00:00 SENDIL ity [facility] 2021-05-24 2021-05-24 Outpatient R SHANEL [facility] [id number] Univers 09:00:00 23:59:00 SENDIL ity [facility] 2021-05-23 2021-05-23 [facility] [id number] Univers 09:30:00 16:47:19 SENDIL ity [facility] 2021-05-23 2021-05-23 [facility] [id number] Univers 09:30:00 10:00:00 Visit Sendil Aiden CASTRO [id number] ity of [place] 4[place]2.[place].2.[place] PROFESS[place] [id number] Wa dical NAL 059 [facility] 2021-05-16 2021-05-16 Orders Doctor ANDRY [id number] Univers 00:00:00 00:00:00 Only Unassigned, SHERIN [id number] ity of [place] [facility] 4.2.7.2.686 [place] [id number] [place] [address] Branch 2019-05-07 2019-05-07 Hospital Juvenal [facility] 1.2.840.114 [id number] Univers 06:30:00 23:59:00 Encounter Tk Dario lopes 350.1.13.10 ity of [facility] [place] [facility] [id number] Med ical 807 Branch 2019-04-23 2019-04-23 Hospital Juvenal Baker/St 1.2.840.114 [id number] Univers 06:20:00 23:59:00 Encounter Leonela lopes 350.1.13.10 ity of [facility] [place] [facility] [id number] Med ical 807 Branch 2019-04-23 2019-04-23 Hospital Juvenal Baker[facility]St 1.2.840.114 [id number] Univers 06:19:00 06:19:00 Encounter Leonela lopes 350.1.13.10 ity of [facility] 4[place].2.[place] [facility] [id number] [facility] ical 807 Branch 2019-04-23 2019-04-23 Hospital Juvenal Baker/ 1.2.840.114 [id number] Univers 06:19:00 06:19:00 Encounter Leonela lopes 350.1.13.10 ity of [facility] 4[place].2.[place] [facility] [id number] [facility] 807 Branch 2018-12-11 2018-12-11 Orders Doctor ANDRY 1.2.840.114 [id number] Univers 00:00:00 00:00:00 Only Unassigned, SHERIN 350.1.13.10 ity of [place] [facility] 4.2.7.2.686 [place] [id number] [facility] 009 Branch 2018-12-03 2018-12-05 [facility] 1.2.840.114 [id number] Univers 22:00:00 02:22:00 Encounter [facility] [id number] ity [place] [id number] [facility] 105 Branch 2018-12-02 2018-12-03 [facility] 1.2.840.114 [id number] Univers 10:58:00 21:59:00 Encounter [facility] [id number] ity [place] [id number] [facility] 005 Branch 2018-12-03 2018-12-03 Anesthesia Ilana Serrano 1.2.840.114 [id number] Univers 09:40:00 11:00:00 Xavidmitry Simpson 350.1.13.10 it y of [facility] 4.2.7.2.686 [place] [id number] [facility] 103 Branch 2018-11-18 2018-11-20 Office Surgery, Td General TDJ 1.2.8 40.114 [id number] Univers 07:33:30 15:45:28 Visit Mandeep Rivera [facility] 350.1.13.10 ity [place] [id number] [facility] 215 Branch 2018-11-18 2018-11-18 Hospital TESFAYE Rivera 1.2.840.114 [id number] [facility] 06:30:00 19:08:00 Encounter [facility] 350.1.13.10 ity [place] [id number] [facility] 068 Branch Results Test Description Test Test Results Result Source Time Comments Comments XR CERVICAL 2019-04- XR CERVICAL SPINE 2 VW U niversity of SPINE 2 VW 12 H[place]ORY: [place] 46 [place] 18:45:08 pain COMPARISON: None [facility] FINDINGS: Straightening of normal cervical lordosis. The [...] sity of VW LEFT 29 abnormality. 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 Preliminary Report Dictated by [...] Universi ty of RIGHT 29 abnormality. 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 Preliminary Report Dictated by [...] right hip joint.Preliminary Report Dictated by Resident: Rahda Jiang MD., have reviewed this study and agree with the abovereport. XR LUMBAR SPINE 2019-03- XR LUMBAR SPINE 2 VW University of 2 VW 29 HISTORY: [place] 46 [place] 15:12:24 pain COMPARISON: None Bra nc FINDINGS: The vertebral bodies are normal in height and in normal alignment. No more than mild degenerative changes are present.[facility], Radiant Results Inft User - 04/23/2019 9:13 AM CSTXR LUMBAR SPINE 2 VWHISTORY: Male 46 years pain COMPARISON: NoneFINDINGS:The vertebral bodies are normal in height and in normal alignment.No more than mild degenerative changes are present. COMP. METABOLIC PANEL ([id number]) 2018-11-18 16:08:00 Test Item Value Reference Range Interpretation Comme nts NA (test code = 1889204789) 142 mmol/L 135-145 K (test code = 4352277788) 4.3 mmol/L 3.5-5 CL (test code = 3891843659) 104 mmol/L 98-108 CO2 TOTAL (test code = 0145561558) 27 mmol/L 23-31 AGAP (test code = 0582102608) 2-16 BUN (test code = 0416531814) 11 mg/dL 7-23 GLUCOSE (test code = 9788500362) 149 mg/dL 70-110 H CREATININE (test code = 0.85 mg/dL 0.6-1.25 8787984018) TOTAL BILI (test code = 0.5 mg/dL 0.1-1.4 1329944880) CALCIUM (test code = 2738688963) 9.5 mg/dL 8.6-10.6 T PROTEIN (test code = 6315351123) 7.8 g/dL 6.3-8.2 ALBUMIN (test code = 1118618899) 4.4 g/dL 3.5-5 ALK PHOS (test code = 7579489459) 50 U/L 34-122 ALT(SGPT) (test code = 3059552445) 52 U/L 9-51 H AST(SGOT) (test code = 5612460812) 49 U/L 13-40 H eGFR Calculation (Non- mL/min/1.73m2 [place]) (test code = 5343982273) eGFR Calculation ( mL/min/1.73m2 [place]) (test code = 2682919995) IVETH (test code = IVETH) Association of [...] tests). Lab Interpretation (test code = Abnormal 19797-5) [facility]. METABOLIC PANEL ([id number])2018-11-18 16:08:00 Test Item Value Reference Range Interpretation Comments NA (test code = 142 mmol/L 135-145 0885892948) K (test code = 4.3 mmol/L 3.5-5 8106165151) CL (test code = 104 mmol/L 98-108 8491663261) CO2 TOTAL (test code = 27 mmol/L 23-31 3277205320) AGAP (test code = 2-16 2974757705) BUN (test code = 11 mg/dL 7-23 7738356304) GLUCOSE (test code = 149 mg/dL 70-110 H 2110220757) CREATININE (test code = 0.85 mg/dL 0.6-1.25 2354708381) TOTAL BILI (test code = 0.5 mg/dL 0.1-1.2 1319164332) CALCIUM (test code = 9.5 mg/dL 8.6-10.6 1798382877) T PROTEIN (test code = 7.8 g/dL 6.3-8.2 0213917371) ALBUMIN (test code = 4.4 g/dL 3.5-5 4600644619) ALK PHOS (test code = 50 U/L 34-122 5254920994) ALT(SGPT) (test code = 52 U/L 9-51 H 0253913731) AST(SGOT) (test code = 49 U/L 13-40 H 6447789372) eGFR Calculation mL/min/1.73m2 (Non-) (test code = 2993720024) eGFR Calculation mL/min/1.73m2 () (test code = 3256729207) IVETH (test code = IVETH) Association of [...] tests). Lab Interpretation Abnormal (test code = 23495-7) [facility] ([id number][facility]2018-11-18 16:08:00 Test Item Value Reference Range Interpretation Comments NA (test code = 142 mmol/L 135-145 2084139900) K (test code = 4.3 mmol/L 3.5-5 2937797731) CL (test code = 104 mmol/L 98-108 0797638818) CO2 TOTAL (test code = 27 mmol/L 23-31 9109973024) AGAP (test code = 2-16 9212718150) BUN (test code = 11 mg/dL 7-23 2976184361) GLUCOSE (test code = 149 mg/dL 70-110 H 7632363151) CREATININE (test code = 0.85 mg/dL 0.6-1.25 4338524993) TOTAL BILI (test code = 0.5 mg/dL 0.1-1.4 0808238763) CALCIUM (test code = 9.5 mg/dL 8.6-10.6 7658727603) T PROTEIN (test code = 7.8 g/dL 6.3-8.2 4913195923) ALBUMIN (test code = 4.4 g/dL 3.5-5 4277818794) ALK PHOS (test code = 50 U/L 34-122 1613994654) ALT(SGPT) (test code = 52 U/L 9-51 H 9442798955) AST(SGOT) (test code = 49 U/L 13-40 H 0212848127) eGFR Calculation mL/min/1.73m2 (Non-) (test code = 9663894771) eGFR Calculation mL/min/1.73m2 () (test code = 0054228861) IVETH (test code = IVETH) Association of [...] tests). Lab Interpretation Abnormal (test code = 96929-3) [facility] WITH [id number] 15:47:00 Test Item Value Reference Range Interpretation [...] RDW-SD (test code = 40.2 fL 38.5-51.6 35647-2) RDW-CV (test code = 11.9 % 12.1-15.4 L 788-0) PLT (test code = See_Comment [Automated 777-3) message] The sy stem which generated this result transmitted reference range : 150 - 328 10*3/ ?L. The reference r major was not used to interpret this result as normal/abnormal . MPV (test code = 9.9 fL 9.8-13 85481-7) NRBC/100 WBC (test See_Comment [Automat ed code = 9974257506) message] The system which generated this result transmitted reference range : 0.0 - 10.0 /100 WBCs. The refer ence range was not u sed to interpret th is result as normal/abnormal . NRBC x10^3 (test code <0.01 See_Comment [Auto mated = 9475650963) message] The s ystem which generated this result transmitted reference range : 10*3/?L. The reference range was not used to interpret this result as normal/abnormal . GRAN MAT (NEUT) % 52.4 % (test code = 770-8) IMM GRAN % (test code 0.20 % = 4401805182) LYMPH % (test code = 39.4 % 736-9) MONO % (test code = 6.1 % 5905-5) EOS % (test code = 1.4 % 713-8) BASO % (test code = 0.5 % 706-2) GRAN MAT x10^3(ANC) 3.11 10*3/uL 1.99-6.95 (test code = 5867328494) IMM GRAN x10^3 (test <0.03 0-0.06 code = 1262761278) LYMPH x10^3 (test code 2.33 10*3/uL 1.09-3.23 = 731-0) MONO x10^3 (test code 0.36 10*3/uL 0.36-1.02 = 742-7) EOS x10^3 (test code = 0.08 10*3/uL 0.06-0.53 711-2) BASO x10^3 (test code 0.03 10*3/uL 0.01-0.09 = 704-7) Lab Interpretation Abnormal (test code = 29216-0) [facility] WITH [id number] 15:47:00 Test Item Value Reference Range Interpretation Comments WBC (test code = See_Comment [Automated 6390-2) message] The sy stem which generated this result transmitted reference range : 4.20 - 10.70 10*3/?L. The reference range was not used to interpret this result as normal/abnormal . RBC (test code = See_Comment [Automated 301-8) message] The sy stem which generated this [...] RDW-SD (test code = 40.2 fL 38.5-51.6 51207-3) RDW-CV (test code = 11.9 % 12.1-15.4 L 788-0) PLT (test code = See_Comment [Automated 777-3) message] The sy stem which generated this result transmitted reference range : 150 - 328 10*3/ ?L. The reference r major was not used to interpret this result as normal/abnormal . MPV (test code = 9.9 fL 9.8-13 15258-4) NRBC/100 WBC (test See_Comment [Automat ed code = 6502756014) message] The system which generated this result transmitted reference range : 0.0 - 10.0 /100 WBCs. The refer ence range was not u sed to interpret th is result as normal/abnormal . NRBC x10^3 (test code <0.01 See_Comment [Auto mated = 6280615807) message] The s ystem which generated this result transmitted reference range : 10*3/?L. The reference range was not used to interpret this result as normal/abnormal . GRAN MAT (NEUT) % 52.4 % (test code = 770-8) IMM GRAN % (test code 0.20 % = 8152551008) LYMPH % (test code = 39.4 % 736-9) MONO % (test code = 6.1 % 5905-5) EOS % (test code = 1.4 % 713-8) BASO % (test code = 0.5 % 706-2) GRAN MAT x10^3(ANC) 3.11 10*3/uL 1.99-6.95 (test code = 0619514069) IMM GRAN x10^3 (test <0.03 0-0.06 code = 5837704784) LYMPH x10^3 (test code 2.33 10*3/uL 1.09-3.23 = 731-0) MONO x10^3 (test code 0.36 10*3/uL 0.36-1.02 = 742-7) EOS x10^3 (test code = 0.08 10*3/uL 0.06-0.53 711-2) BASO x10^3 (test code 0.03 10*3/uL 0.01-0.09 = 704-7) Lab Interpretation Abnormal (test code = 30118-4) [facility] WITH [id number] 15:47:00 Test Item Value Reference Range Interpretation Comments WBC (test code = See_Comment [Automated 2190-2) message] The sy stem which generated this result transmitted reference range : 4.20 - 10.70 10*3/?L. The reference range was not used to interpret this result as normal/abnormal . RBC (test code = See_Comment [Automated 569-8) message] The sy stem which generated this [...] RDW-SD (test code = 40.2 fL 38.5-51.6 60094-8) RDW-CV (test code = 11.9 % 12.1-15.4 L 788-0) PLT (test code = See_Comment [Automated 777-3) message] The sy stem which generated this result transmitted reference range : 150 - 328 10*3/ ?L. The reference r major was not used to interpret this result as normal/abnormal . MPV (test code = 9.9 fL 9.8-13 94860-8) NRBC/100 WBC (test See_Comment [Automat ed code = 6886586391) message] The system which generated this result transmitted reference range : 0.0 - 10.0 /100 WBCs. The refer ence range was not u sed to interpret th is result as normal/abnormal . NRBC x10^3 (test code <0.01 See_Comment [Auto mated = 7484120118) message] The s ystem which generated this result transmitted reference range : 10*3/?L. The reference range was not used to interpret this result as normal/abnormal . GRAN MAT (NEUT) % 52.4 % (test code = 770-8) IMM GRAN % (test code 0.20 % = 4789984873) LYMPH % (test code = 39.4 % 736-9) MONO % (test code = 6.1 % 5905-5) EOS % (test code = 1.4 % 713-8) BASO % (test code = 0.5 % 706-2) GRAN MAT x10^3(ANC) 3.11 10*3/uL 1.99-6.95 (test code = 0015827201) IMM GRAN x10^3 (test <0.03 0-0.06 code = 8627281475) LYMPH x10^3 (test code 2.33 10*3/uL 1.09-3.23 = 731-0) MONO x10^3 (test code 0.36 10*3/uL 0.36-1.02 = 742-7) EOS x10^3 (test code = 0.08 10*3/uL 0.06-0.53 711-2) BASO x10^3 (test code 0.03 10*3/uL 0.01-0.09 = 704-7) Lab Interpretation Abnormal (test code = 58877-0) [facility] WITH [id number] 15:47:00 Test Item Value Reference Range Interpretation Comments WBC (test code = See_Comment [Automated 9690-2) message] The sy stem which generated this result transmitted reference range : 4.20 - 10.70 10*3/?L. The reference range was not used to interpret this result as normal/abnormal . RBC (test code = See_Comment [Automated 389-8) message] The sy stem which generated this [...] RDW-SD (test code = 40.2 fL 38.5-51.6 26779-3) RDW-CV (test code = 11.9 % 12.1-15.4 L 788-0) PLT (test code = See_Comment [Automated 777-3) message] The sy stem which generated this result transmitted reference range : 150 - 328 10*3/ ?L. The reference r major was not used to interpret this result as normal/abnormal . MPV (test code = 9.9 fL 9.8-13 64185-2) NRBC/100 WBC (test See_Comment [Automat ed code = 5889428213) message] The system which generated this result transmitted reference range : 0.0 - 10.0 /100 WBCs. The refer ence range was not u sed to interpret th is result as normal/abnormal . NRBC x10^3 (test code <0.01 See_Comment [Auto mated = 0623904535) message] The s ystem which generated this result transmitted reference range : 10*3/?L. The reference range was not used to interpret this result as normal/abnormal . GRAN MAT (NEUT) % 52.4 % (test code = 770-8) IMM GRAN % (test code 0.20 % = 2039473578) LYMPH % (test code = 39.4 % 736-9) MONO % (test code = 6.1 % 5905-5) EOS % (test code = 1.4 % 713-8) BASO % (test code = 0.5 % 706-2) GRAN MAT x10^3(ANC) 3.11 10*3/uL 1.99-6.95 (test code = 8672655302) IMM GRAN x10^3 (test <0.03 0-0.06 code = 3788332682) LYMPH x10^3 (test code 2.33 10*3/uL 1.09-3.23 = 731-0) MONO x10^3 (test code 0.36 10*3/uL 0.36-1.02 = 742-7) EOS x10^3 (test code = 0.08 10*3/uL 0.06-0.53 711-2) BASO x10^3 (test code 0.03 10*3/uL 0.01-0.09 = 704-7) Lab Interpretation Abnormal (test code = 38208-4) [facility] WITH [id number] 15:47:00 Test Item Value Reference Range Interpretation Comments WBC (test code = See_Comment [Automated 2627-2) message] The sy stem which generated this result transmitted reference range : 4.20 - 10.70 10*3/?L. The reference range was not used to interpret this result as normal/abnormal . RBC (test code = See_Comment [Automated 199-8) message] The sy stem which generated this [...] RDW-SD (test code = 40.2 fL 38.5-51.6 08935-4) RDW-CV (test code = 11.9 % 12.1-15.4 L 788-0) PLT (test code = See_Comment [Automated 777-3) message] The sy stem which generated this result transmitted reference range : 150 - 328 10*3/ ?L. The reference r major was not used to interpret this result as normal/abnormal . MPV (test code = 9.9 fL 9.8-13 13746-4) NRBC/100 WBC (test See_Comment [Automat ed code = 3459409882) message] The system which generated this result transmitted reference range : 0.0 - 10.0 /100 WBCs. The refer ence range was not u sed to interpret th is result as normal/abnormal . NRBC x10^3 (test code <0.01 See_Comment [Auto mated = 6958358407) message] The s ystem which generated this result transmitted reference range : 10*3/?L. The reference range was not used to interpret this result as normal/abnormal . GRAN MAT (NEUT) % 52.4 % (test code = 770-8) IMM GRAN % (test code 0.20 % = 0038877343) LYMPH % (test code = 39.4 % 736-9) MONO % (test code = 6.1 % 5905-5) EOS % (test code = 1.4 % 713-8) BASO % (test code = 0.5 % 706-2) GRAN MAT x10^3(ANC) 3.11 10*3/uL 1.99-6.95 (test code = 9686397482) IMM GRAN x10^3 (test <0.03 0-0.06 code = 6449572130) LYMPH x10^3 (test code 2.33 10*3/uL 1.09-3.23 = 731-0) MONO x10^3 (test code 0.36 10*3/uL 0.36-1.02 = 742-7) EOS x10^3 (test code = 0.08 10*3/uL 0.06-0.53 711-2) BASO x10^3 (test code 0.03 10*3/uL 0.01-0.09 = 704-7) Lab Interpretation Abnormal (test code = 87758-9) [facility]"
[2021-12-13] MEDS ORDERED: methocarbamoL 500 MG TAB ONE (11:38)
[2021-12-13] MEDS ORDERED: HYDROCODONE/APAP 10/325 TAB ONE (11:38)
--- NOTE | 2021-12-13 12:37 | RAD REPORT ---
EXAM DESCRIPTION: RAD - Pelvis - 12/13/2021 11:52 am CLINICAL HISTORY: BLUNT TRAUMA COMPARISON: No comparisonsNone. TECHNIQUE: AP imaging of the pelvis was obtained. FINDINGS: No fracture of the bony pelvis. No fracture, dislocation or other acute hip joint finding. No significant SI joint findings. No soft tissue abnormality. IMPRESSION: Negative pelvis for acute or significant findings.
--- NOTE | 2021-12-13 12:37 | RAD REPORT ---
EXAM DESCRIPTION: RAD - Lumbar Spine 3 Views - 12/13/2021 11:50 am CLINICAL HISTORY: Pain COMPARISON: No comparisons FINDINGS: A three-view lumbar spine examination was performed. Lumbar bodies are normal in height and alignment. No fracture or acute bony process seen. Minimal dis c space narrowing at L4-5. Minimal endplate spurring seen in L1-L5. Mid and lower lumbar facet joint degenerative changes are present relatively mild. No pars defects identified. IMPRESSION: Lumbar spine degenerative changes are present, mild in degree, with no acute finding chanell ntified. Concerns for disc herniation, central canal abnormality or occult bone process can be addressed with follow-up outpatient MRI imaging.
--- NOTE | 2021-12-13 12:51 | ER ---
Nurse's Notes [facility] Name: Marvin Chow Age: 46 yrs Sex: Male : 1975 Arrival Date: 12/13/2021 Time: 11:06 Bed 10 Private MD: Diagnosis: Fall (on) (from) unspecified stairs and steps;Low back pain;Pain in left hip Presentation: 12/13 11:14 Chief complaint: Patient states: he jumped off of an 18 meeks trailer yesterday, did ap3 a "tuck and roll" and and is complaining of pain to his right arm, right hip and back. Patient reports that his pain is currently a 7/10. Coronavirus screen: At this time, the client does not indicate any symptoms associated with coronavirus-19. Ebola Screen: No symptoms or risks identified at this time. Initial Sepsis Screen: Does the patient meet any 2 criteria? No. Patient's initial sepsis screen is negative. Does the patient have a suspected source of infection? No. Patient's initial sepsis screen is negative. Risk Assessment: Do you want to hurt yourself or someone else? Patient reports no desire to harm self or others. Onset of symptoms was December 12, 2021. 11:14 Method Of Arrival: Law Enforcement ap3 11:14 Acuity: GERARDO 3 ap3 Triage Assessment: 11:18 General: Appears in no apparent distress. Behavior is cooperative. Pain: Complains of ap3 pain in back, right hip and right arm. Neuro: Level of Consciousness is awake, alert, obeys commands, Oriented to person, place, time, situation, Gait is steady. Cardiovascular: Patient's skin is warm and dry. Respiratory: Airway is patent Respiratory effort is even, unlabored, Respiratory pattern is regular, symmetrical. Historical: - Allergies: 11:17 No Known Allergies; ap3 - Home Meds: 11:17 "long list of blood pressure medications that i do not know" [Active]; ap3 - PMHx: 11:17 heart flutter; Hypertension; mitro valve prolapse; Hypercholesterolemia; ap3 - Immunization history:: Client reports having NOT received the Covid vaccine. - Social history:: Smoking status: Patient denies any tobacco usage or history of. Screenin:18 Abuse screen: Denies threats or abuse. Nutritional screening: No deficits noted. ap3 Tuberculosis screening: No symptoms or risk factors identified. 11:21 Fall Risk Fall in past 12 months (25 points). No secondary diagnosis (0 pts). No IV (0 ap3 pts). Ambulatory Aid- None/Bed Rest/Nurse Assist (0 pts). Gait- Impaired (20 pts.). Mental Status- Oriented to own ability (0 pts). Total Oglesby Fall Scale indicates High Risk Score (45 or more points). Fall prevention measures have been instituted. Side Rails Up X 2 Placed Close to Nursing Station 1:1 Attendant Assigned Frequent Obs/Assessments Occuring As available patient and family educated on Fall Prevention Program and Strategies. Assessment: 11:21 General: patient in police custody with handcuffs . ap3 12:05 Reassessment: Patient and/or family updated on plan of care and expected duration. Pain ap3 level reassessed. Patient is alert, oriented x 3, equal unlabored respirations, skin warm/dry/pink. Vital Signs: 11:14 BP 174 / 119; Pulse 81; Resp 18; Temp 98.0(O); Pulse Ox 100% ; Weight 90.72 kg; Height ap3 5 ft. 10 in. (177.80 cm); Pain 7/10; 11:14 Body Mass Index 28.70 (90.72 kg, 177.80 cm) ap3 ED Course: 11:06 Patient arrived in ED. ap3 11:09 Phuong Flanagan FNP-C is PSYCHIATRICP. snw 11:09 Merlyn Joya MD is Attending Physician. snw 11:17 Triage completed. ap3 11:19 Police to see patient. ap3 11:19 Patient has correct armband on for positive identification. Bed in low position. Call ap3 light in reach. Security at bedside. 11:21 Arm band placed on right wrist. ap3 11:23 Lillie Cevallos, CM is Primary Nurse. ap3 11:51 Lumbar Spine (3 Views) XRAY In Process Unspecified. EDMS 11:51 Pelvis XRAY In Process Unspecified. EDMS 13:07 No provider procedures requiring assistance completed. Patient did not have IV access ap3 during this emergency room visit. Administered Medications: 11:32 Drug: [place] (HYDROcodone-acetaminophen) 10 mg-325 mg 1 tabs Route: PO; ap3 13:08 Follow up: Response: No adverse reaction; Pain is decreased ap3 11:32 Drug: Robaxin (methocarbamol) 750 mg Route: PO; ap3 13:08 Follow up: Response: No adverse reaction; Pain is decreased ap3 Medication: 13:07 VIS not applicable for this client. ap3 Outcome: 12:51 Discharge ordered by MD. florez 13:07 Discharged to Law Enforcement ap3 13:07 Condition: good 13:07 Discharge instructions given to police, Instructed on discharge instructions, follow up and referral plans. medication usage, Demonstrated understanding of instructions, follow-up care, medications, Prescriptions given X 1. 13:08 Patient left the ED. ap3 Signatures: Dispatcher [employer] EDPhuong Guzman, ACTIVITIES CONCIERGE-C ACTIVITIES CONCIERGE-Lillie Chambers, RN RN ap3
--- NOTE | 2021-12-13 12:51 | EDPHYS ---
Physician Documentation [facility] Name: Marvin Chow Age: 46 yrs Sex: Male : 1975 Arrival Date: 12/13/2021 Time: 11:06 Bed 10 Private MD: ED Physician Merlyn Joya HPI: 12/13 11:18 This 46 yrs old Male presents to ER via Law Enforcement with complaints of low back and snw hip pain post fall yesterday. 11:18 The patient presents with pain that is acute. The symptoms are located in the low back. snw The pain radiates to the left iliac crest and left hip. The problem was sustained during a fall, pt fell from 18 meeks bed and "tuck and rolled", left lower back and hip painful since. Onset: The symptoms/episode began/occurred suddenly, yesterday. Associated signs and symptoms: The patient has no apparent associated signs or symptoms. Severity of symptoms: At their worst the symptoms were moderate. It is unknown whether or not the patient has had similar symptoms in the past. pt states he has a law suit and refuses to discuss meds, blood pressure, or PCP. Historical: - Allergies: 11:17 No Known Allergies; ap3 - Home Meds: 11:17 "long list of blood pressure medications that i do not know" [Active]; ap3 - PMHx: 11:17 heart flutter; Hypertension; mitro valve prolapse; Hypercholesterolemia; ap3 - Immunization history:: Client reports having NOT received the Covid vaccine. - Social history:: Smoking status: Patient denies any tobacco usage or history of. ROS: 11:18 Constitutional: Negative for fever, chills, and weight loss, Eyes: Negative for injury, snw pain, redness, and discharge, ENT: Negative for injury, pain, and discharge, Neck: Negative for injury, pain, and swelling, Cardiovascular: Negative for chest pain, palpitations, and edema, Respiratory: Negative for shortness of breath, cough, wheezing, and pleuritic chest pain, Abdomen/GI: Negative for abdominal pain, nausea, vomiting, diarrhea, and constipation, Back: Negative for injury and pain, Skin: Negative for injury, rash, and discoloration, Neuro: Negative for headache, weakness, numbness, tingling, and seizure. 11:18 MS/extremity: Positive for pain, of the left hip and back. 11:18 Psych: Positive for anxiety. Exam: 11:18 Constitutional: This is a well developed, well nourished patient who is awake, alert, snw and in no acute distress. Head/Face: Normocephalic, atraumatic. Eyes: Pupils equal round and reactive to light, extra-ocular motions intact. Lids and lashes normal. Conjunctiva and sclera are non-icteric and not injected. Cornea within normal limits. Periorbital areas with no swelling, redness, or edema. ENT: Nares patent. No nasal discharge, no septal abnormalities noted. Tympanic membranes are normal and external auditory canals are clear. Oropharynx with no redness, swelling, or masses, exudates, or evidence of obstruction, uvula midline. Mucous membranes moist. Neck: Trachea midline, no thyromegaly or masses palpated, and no cervical lymphadenopathy. Supple, full range of motion without nuchal rigidity, or vertebral point tenderness. No Meningismus. Chest/axilla: Normal chest wall appearance and motion. Nontender with no deformity. No lesions are appreciated. Cardiovascular: Regular rate and rhythm with a normal S1 and S2. No gallops, murmurs, or rubs. Normal PMI, no JVD. No pulse deficits. Respiratory: Lungs have equal breath sounds bilaterally, clear to auscultation and percussion. No rales, rhonchi or wheezes noted. No increased work of breathing, no retractions or nasal flaring. Abdomen/GI: Soft, non-tender, with normal bowel sounds. No distension or tympany. No guarding or rebound. No evidence of tenderness throughout. Skin: Warm, dry with normal turgor. Normal color with no rashes, no lesions, and no evidence of cellulitis. MS/ Extremity: Pulses equal, no cyanosis. Neurovascular intact. Full, normal range of motion. Neuro: Awake and alert, GCS 15, oriented to person, place, time, and situation. Cranial nerves II-XII grossly intact. Motor strength 5/5 in all extremities. Sensory grossly intact. Cerebellar exam normal. Normal gait. Psych: Awake, alert, with orientation to person, place and time. Behavior, mood, and affect are within normal limits. 11:18 Back: pain, that is moderate, ROM is normal, normal spinal alignment noted, CVA tenderness, is absent, vertebral tenderness, is not appreciated, muscle spasm, is appreciated in the low back area, radiation to left hip. Vital Signs: 11:14 BP 174 / 119; Pulse 81; Resp 18; Temp 98.0(O); Pulse Ox 100% ; Weight 90.72 kg; Height ap3 5 ft. 10 in. (177.80 cm); Pain 7/10; 11:14 Body Mass Index 28.70 (90.72 kg, 177.80 cm) ap3 MDM: 11:09 Patient medically screened. snw 12:49 Data reviewed: vital signs, nurses notes. Data interpreted: Pulse oximetry: on room air snw is 100 %. Interpretation: normal. Counseling: I had a detailed discussion with the patient and/or guardian regarding: the historical points, exam findings, and any diagnostic results supporting the discharge/admit diagnosis, the presence of at least one elevated blood pressure reading (>120/80) during this emergency department visit, radiology results, the need for outpatient follow up, to return to the emergency department if symptoms worsen or persist or if there are any questions or concerns that arise at home. Special discussion: I have referred the patient to see his PCP for further evaluation of high blood pressure. Based on the history and exam findings, there is no indication for further emergent testing or inpatient evaluation. I discussed with the patient/guardian the need to see the primary care provider for further evaluation of the symptoms. 12/13 11:22 Order name: Lumbar Spine (3 Views) XRAY; Complete Time: 12:48 snw 12/13 11:45 Order name: Pelvis XRAY; Complete Time: 12:48 snw Administered Medications: 11:32 Drug: [place] (HYDROcodone-acetaminophen) 10 mg-325 mg 1 tabs Route: PO; ap3 13:08 Follow up: Response: No adverse reaction; Pain is decreased ap3 11:32 Drug: Robaxin (methocarbamol) 750 mg Route: PO; ap3 13:08 Follow up: Response: No adverse reaction; Pain is decreased ap3 Disposition Summary: 12/13/21 12:51 Discharge Ordered Location: Home snw Condition: Stable snw Diagnosis - Fall (on) (from) unspecified stairs and steps snw - Low back pain snw - Pain in left hip snw Followup: snw - With: Emergency Department - When: As needed - Reason: Worsening of condition Followup: snw - With: Private Physician - When: 2 - 3 days - Reason: Recheck today's complaints, Continuance of care, Re-evaluation by your physician Discharge Instructions: - Discharge Summary Sheet snw - Acute Back Pain, Adult snw - Musculoskeletal Pain snw - Hip Pain snw - Heat Therapy snw Forms: - Medication Reconciliation Form snw - Thank You Letter snw - Antibiotic Education snw - Prescription Opioid Use snw Prescriptions: - orphenadrine citrate 100 mg Oral Tablet Sustained Release - take 1 tablet by ORAL route 2 times per day As needed; 20 tablet; Refills: 0, snw Product Selection Permitted Signatures: Dispatcher [employer] Phuong Albarran FNP-C [employer]-Csnw Lillie Cevallos RN RN ap3
[2021-12-14 15:51] VITALS: BP 174/119; TEMP 98; O2SAT 100
== END 2021-12-13 13:08 | disposition home or self-care (01) ==
LOC: ER 11:04
DX: M54.50 Low back pain, unspecified (principal); M25.552 Pain in left hip; W10.9XXA Fall (on) (from) unspecified stairs and steps, initial encounter
CPT/HCPCS: 72100; 72170; 99284

== ENCOUNTER 2022-08-19 13:56 | Emergency (ER) | payer SELFPAY ==
--- OUTSIDE RECORDS SUMMARY | 2022-08-19 14:01 | XMS REPORT | Continuity of Care Document ---
:1975 Author Organization [facility] t Address [address] [place] [address] Care Team Providers Name Role Phone PCP, PATIENT DOES NOT HAVE A Primary Care Physician STEVEN Mi Attending Clinician Unavailable Shanel CANCHOLA, Steven SamsonHRadha Attending Clinician Doctor Unassigned, [place] Attending Clinician Unavailable Tk Vernon Attending Clinician [...] ally from Medical request Branch for surgery [id number] Right Right Disease Active Univers inguinal inguinal 7-14 ity of hernia hernia 00:00: [address] No known No known Disease Unive rs active active ity of problems problems [facility] Allergies, Adverse Reactions, Alerts Allergy Allergy Status Severity Reaction(s) Onset Inactive Treating Comm ents Source Name Type Date Date Clinician Amlodipi Propensi Active Swelling Univ ers ne ty to 7-31 ity of adverse 00:00: [place] reaction 00 Medical s Branch NO KNOWN Drug Active Univers ALLERGIE Class ity of S [facility] Social History Social Habit Start Date Stop Date Quantity Comments Source History of Cigarette Smoker Universi ty of tobacco use [facility] Exposure to Not sure University of SARS-CoV-2 [place] Medical (event) Branch Alcohol intake 2018-12-04 2018-12-04 University of 00:00:00 00:00:00 [facility] Tobacco Comment 2016-10-06 2016-10-06 quit 10 yrs ago Univ ersity of 00:00:00 00:00:00 [facility] Alcohol Comment 2016-10-06 2016-10-06 quit 7 yrs ago Unive rsity of 00:00:00 00:00:00 [facility] Sex Assigned At [birth year] [facility] y of 00:00:00 00:00:00 [facility] Smoking Status Start Date Stop Date Source Unknown if ever smoked [facility] y [facility] Former smoker 2018-12-04 00:00:00 2018-12-04 00:00:00 [facility] Medications Ordered Filled Start Stop Current Ordering Indication Dosage Frequency Signature Comments Components Source Medication Medication Date Date Medication? Clinician (SIG) Name Name No known No Univers medications 2-28 ity of 09:43: [place] 54 [facility] Branch carvediloL Yes [id number] 12.5mg Take 1 Univers 12.5 mg 2-28 tablet by ity of tablet 00:00: mouth 2 [place] 00 (two) Medical times [place] daily with meals. RANITIDINE 2018- No Take by Uni vers HCL ORAL 12-04 mouth as ity of 03:40: 00:00 needed. [place] 04 :00 [facility] acetaminoph Yes 1{tbl} 1 tablet, Univers en-codeine 12-04 Oral, ity of (TYLENOL 02:36: Q6HPRN, [place] #3) 300-30 42 Starting Medic al mg tablet 1 e [place] tablet 12/03/18 at 2136, Until Discontinu ed, Routine, Pain (scale 4-6), Pain (scale 7-10) acetaminoph 2019- No 1{tbl} 1 tablet, Univers en-codeine 9-10 09-10 Oral, PRN, it y of (TYLENOL 18:03: 18:31 1 dose, [place] #3) 300-30 16 :00 Starting Medic al mg tablet 1 Tue Branch tablet 12/03/18 at 1303, Until e 12/03/18 at 1331, Routine, Pain (scale 7-10), [...] Tue Medical E MPF) 0.5 12/03/18 at [facility] nc % (5 mg/mL) 1125, injection Until [...] Tue Medical E MPF) 0.5 12/03/18 at [facility] nc % (5 mg/mL) 1125, injection Until [...] en ADULT 12-03 Infusion, ity o f ([facility]) 15:15: 16:00 Administer [place] injection 00 :50 over 15 Medical Minutes, Branch ONCE INTRA PROCEDURE, Starting 12/03/18 at 1015, Until Sun12/03/18 at 1100, Routine, Intra-op acetaminoph 2019- No IV Unive rs en ADULT 12-03 Infusion, ity o f ([facility]) 15:15: 16:00 Administer [place] injection 00 :50 over 15 Medical Minutes, Branch ONCE INTRA PROCEDURE, Starting 12/03/18 at 1015, Until 12/03/18 at 1100, Routine, Intra-op acetaminoph 2019- No IV Unive rs en ADULT 12-03 Infusion, ity o f ([facility]) 15:15: 16:00 Administer [place] injection 00 :50 over 15 Medical Minutes, Branch ONCE INTRA PROCEDURE, Starting 12/03/18 at 1015, Until 12/03/18 at 1100, Routine, Intra-op dexMEDEtomi 2019-0 2019- No CONTINUOUS Univers dine 12-03 PRN, ity of (PRECEDEX) 15:03: 16:00 [place] 20 mcg in 00 :50 Tue Medical NaCl 0.9% 12/03/18 at [facility] (NS) 1003, piggyback Until Tu12/03/18 at 1100, 50 mL, Intra-op dexMEDEtomi 2019- No CONTINUOUS Univers dine 12-03 PRN, ity of (PRECEDEX) 15:03: 16:00 Starting [place] 20 mcg in 00 :50 Tue Medical NaCl 0.9% 12/03/18 at [facility] (NS) 1003, piggyback Until 12/03/18 at 1100, 50 mL, Intra-op dexMEDEtomi 2018- No CONTINUOUS Univers dine 12-03 PRN, ity of (PRECEDEX) 15:03: 16:00 Starting [place] 20 mcg in 00 :50 Tue Medical NaCl 0.9% 12/03/18 at [facility] (NS) 1003, piggyback Until 12/03/18 at [...] Until 12/03/18 at 1100, NEENA, Intra-op ceFAZolin 0 2019- No ONCE INTRA U nivers (ANCEF) 12-03 PROCEDURE, ity o f injection 14:55: 16:00 Starting [place] 00 :50 Tue Medical 12/03/18 at Branch 0955, Until 12/03/18 at 1100, NEENA, Intra-op propofol 0 2019- No Slow IV Unive rs injection 9-10 09-10 Push, ONCE ity of 14:52: 16:00 INTRA [place] 00 :50 PROCEDURE, Medical Starting Branch 12/03/18 at 0952, Until 12/03/18 at 1100, Routine, Intra-op rocuronium 2018-0 2019- No ONCE INTRA Univers (ZEMURON) 12-03 [...] Until 12/03/18 at 1100, Routine, Intra-op lactated 2018- No IV Univers ringers IV 12-03 Infusion, ity of infusion 14:40: 16:00 CONTINUOUS [place] 00 :50 PRN, Medical Starting Branch 12/03/18 at 0940, Until 12/03/18 at 1100, Routine, Intra-op lactated 2018- No IV Univers ringers IV 12-03 Infusion, [...] at 1100, Routine, Intra-op acetaminoph 2019- No [id number] 1{tbl} Take 1 Univers en-codeine 12-03 tablet by ity of 300-30 mg 00:00: 04:59 mouth [place] tablet 00 :00 every 6 Medical (six) Branch hours as needed for Pain (scale 4-6) or Pain (scale 7-10) for up to 7 days. acetaminoph 2019- No [id number] 1{tbl} Take 1 Univers en-codeine 12-03 tablet by ity of 300-30 mg 00:00: 00:00 mouth [place] tablet 00 :00 every 6 Medical (six) Branch hours as needed for Pain (scale 4-6) or Pain (scale 7-10) for up to 7 days. RANITIDINE Yes Take by Univ ers HCL ORAL 9-09 mouth as ity of 15:59: needed. [facility] RANITIDINE Yes Take by Univ ers HCL ORAL 9-09 mouth as ity of 15:59: needed. [place] [facility] RANITIDINE Yes Take by Univ ers HCL ORAL 9-09 mouth as ity of 15:59: needed. [place] [facility] RANITIDINE Yes Take by Univ ers HCL ORAL 8-27 mouth as ity of 00:09: needed. [place] [facility] RANITIDINE Yes Take by Univ ers HCL ORAL 8-27 mouth as ity of 00:09: needed. [place] [facility] RANITIDINE Yes Take by Univ ers HCL ORAL 8-26 mouth as ity of 14:29: needed. [address] RANITIDINE Yes Take by Univ ers HCL ORAL 8-26 mouth as ity of 14:29: needed. [address] RANITIDINE 2019-0 Yes Take by Univ ers HCL ORAL 8-26 mouth as ity of 14:29: needed. [place] [address] Medical Branch RANITIDINE 2019-0 Yes Take by Univ ers HCL ORAL 8-26 mouth as ity of 14:29: needed. [place] [address] Medical Branch atenolol 50 2016-03 Yes 50mg [...] capsule by ity of 00:00: mouth at [place] 00 bedtime. Medical Branch atenolol 50 2016-03 [...] capsule by ity of 00:00: mouth at [place] 00 bedtime. Medical Branch atenolol 50 2016-03 [...] 00 :00 daily. Medical Branch terazosin 1 2017-1 2019- No 1mg Take 1 Uni vers mg capsule 05-17 capsule by it y of 00:00: 00:00 mouth at [place] 00 :00 bedtime. Medical Branch No known No Univers medications ity of [facility] No known No Univers medications ity of [facility] No known No Univers medications ity of [facility] No known No Univers medications ity of [facility] No known No [facility] V[facility] Signs Vital Name Observation Time Observation Value Comments Source Systolic blood 2021-05-23 188 mm[Hg] University of pressure 15:46:00 [facility] Diastolic blood 2021-05-23 133 mm[Hg] University o f pressure 15:46:00 [facility] Heart rate 2021-05-23 99 /min University of 15:46:00 [facility] Body height 2021-05-23 177.8 cm University of 15:42:00 [facility] Body weight 2021-05-23 102.711 kg University of 15:42:00 [facility] BMI 2021-05-23 32.49 kg/m2 University of 15:42:00 [facility] Oxygen saturation 2021-05-23 97 /min [facility] in Arterial blood 15:42:00 [facility] by Pulse oximetry [place] Systolic blood 2018-12-03 166 mm[Hg] notified nurse University of pressure 17:18:00 [facility] Diastolic blood 2018-12-03 98 mm[Hg] notified nurse University of pressure 17:18:00 [facility] Heart rate 2018-12-03 61 /min University of 17:18:00 [facility] Body temperature 2018-12-03 36.72 Nahomi University of 17:18:00 [facility] Respiratory rate 2018-12-03 20 /min University of 17:18:00 [facility] Oxygen saturation 2018-12-03 97 /min [facility] in Arterial blood 17:18:00 [facility] by Pulse oximetry [place] Body height 2018-12-02 177.8 cm University of 17:50:00 [facility] Body weight 2018-12-02 92.08 kg University of 17:50:00 [facility] BMI 2018-12-02 29.13 kg/m2 University of 17:50:00 [facility] Systolic blood 2018-11-18 189 mm[Hg] University of pressure 14:59:00 [facility] Diastolic blood 2018-11-18 100 mm[Hg] [facility] pressure 14:59:00 [facility] Heart rate 2018-11-18 75 /min [facility] 14:59:00 [facility] Body temperature 2018-11-18 36.56 Nahomi [facility] 14:59:00 [facility] Body height 2018-11-18 177.8 cm [facility] 14:59:00 [facility] Body weight 2018-11-18 91.627 kg [facility] 14:59:00 [facility] BMI 2018-11-18 28.98 kg/m2 University 14:59:00 [facility] Oxygen saturation 2018-11-18 99 /min [facility] Arterial blood 14:59:00 [facility] by Pulse oximetry Branch Procedures Procedure Date / Time Performing Clinician Source Performed AUTHORIZATION FOR 2021-05-16 06:01:00 Doctor Unassigned, No Univ [facility] RELEASE OF PHI Name Medical Branch XR CERVICAL SPINE 2 VW 2019-05-07 14:17:02 [facility]k [place] [facility] LUMBAR SPINE 2 VW 2019-04-23 14:14:26 Leonela Baker [facility] XR HIPS 2 VW RIGHT 2019-04-23 14:14:05 Leonela Baker [facility] XR SHOULDER 2+ VW LEFT 2019-04-23 14:13:45 [facility] EXTERNAL PROVIDER 2018-12-11 05:01:00 Doctor Unassigned, No Univ [facility] RECORDS Name Medical [place] NERVE BLOCK 2018-12-03 23:15:50 Romero [facility] INTUBATION 2018-12-03 15:12:23 Xavi Serrano Sawyer o f [facility] CBC WITH DIFFERENTIAL 2018-11-18 15:33:00 Flash Coello [facility] COMP. METABOLIC PANEL 2018-11-18 15:33:00 Flash Coello [facility] ([id number]) Medical [place] Encounters Start End Encounter Admission Attending Care Care Encounter Source Date/Time Date/Time Type Type Clinicians Facility Department ID 2021-07-22 2021-07-22 Outpatient Isa UGARTE [facility] [id number] [facility] 09:00:00 09:00:00 STEVEN gama [facility] 2021-07-22 2021-07-22 Outpatient R SHANEL [facility] [id number] Univers 09:00:00 09:00:00 SENDIL ity [facility] 2021-07-22 2021-07-22 Outpatient R SHANEL [facility] [id number] Univers 09:00:00 09:00:00 SENDIL ity [facility] 2021-05-24 2021-05-24 [facility] [id number] Univers 09:00:00 23:59:00 SENDIL ity [facility] 2021-05-24 2021-05-24 Outpatient R SHANEL [facility] [id number] Univers 09:00:00 09:00:00 SENDIL ity [facility] 2021-05-23 2021-05-23 [facility] [id number] Univers 09:30:00 16:47:19 SENDIL ity [facility] 2021-05-23 2021-05-23 [facility] [id number] Univers 09:30:00 10:00:00 Visit Sendil Aiden CASTRO [id number] ity of [place] 4[place]2.7.2.686 [place] SRINIVAS[place] [id number] [address] 2021-05-23 2021-05-23 [facility] [id number] Univers 09:30:00 09:30:00 SENDIL ity [facility] 2021-05-23 2021-05-23 [facility] [id number] Univers 09:30:00 09:30:00 SENDIL ity [facility] 2021-05-16 2021-05-16 Orders Doctor WILDE [id number] Univers 00:00:00 00:00:00 Only Unassigned, SHERIN [id number] ity of [place] [facility] 4.2.7.2.686 [place] [id number] [address] 2019-05-07 2019-05-07 [facility] Juvenal Vernon/St 1.2.840.114 [id number] Univers 06:30:00 23:59:00 Encounter Tk avilezo 350.1.13.10 ity of [facility] 4[place] [facility] [id number] Med ical 807 Branch 2019-04-23 2019-04-23 [facility] Juvenal Baker/St 1.2.840.114 [id number] Univers 06:20:00 23:59:00 Encounter Leonela avilezo [id number] ity of [facility] 4[place].2.[place] [facility] [id number] Med ical 807 Branch 2019-04-23 2019-04-23 [facility] Juvenal Baker/ 1.2.840.114 [id number] Univers 06:19:00 06:19:00 Encounter Leonela avilezo 350.1.13.10 ity of [facility] 4[place].2.[place] [facility] [id number] Med ical 807 Branch 2019-04-23 2019-04-23 [facility] 1.2.840.114 [id number] Univers 06:19:00 06:19:00 Encounter Leonela avilezo 350.1.13.10 ity of [facility] 4[place]2.[place].2.[place] [facility] [id number] Med ical 807 Branch 2018-12-11 2018-12-11 Orders Doctor WILDE 1.2.840.114 [id number] Univers 00:00:00 00:00:00 Only Unassigned, SHERIN 350.1.13.10 ity of [place] [facility] 4.2.7.2.686 [place] as [id number] [facility] 009 Branch 2018-12-03 2018-12-05 [facility] TESFAYE Rivera 1.2.840.114 [id number] Univers 22:00:00 02:22:00 [facility] 350.1.13.10 [place] [id number] [facility] 105 Branch 2018-12-02 2018-12-03 [facility] TESFAYE Rivera 1.2.840.114 [id number] Univers 10:58:00 21:59:00 Encounter [facility] 350.1.13.10 ity [place] [id number] [facility] 005 Branch 2018-12-03 2018-12-03 Anesthesia Ilana Serrano 1.2.840.114 [id number] Univers 09:40:00 11:00:00 Xavi Sherin 350.1.13.10 it y of Hospital 4.2.7.2.686 [place] [id number] [facility] 103 Branch 2018-11-18 2018-11-20 Office Surgery, Td General TDCJ 1.2.8 40.114 [id number] Univers 07:33:30 15:45:28 Visit [facility] 350.1.13.10 it[place] [id number] [facility] 215 Branch 2018-11-18 2018-11-18 Hospital Nicole [facility] 1.2.840.114 [id number] [facility] 06:30:00 19:08:00 Encounter [facility] 350.1.13.10 ity [place] [id number] [facility] 068 Branch Results Test Description Test Test Results Result Source Time Comments Comments XR CERVICAL 2019-04- XR CERVICAL SPINE 2 VW U niversity of SPINE 2 VW 12 HISTORY: [place] 46 [place] 18:45:08 pain COMPARISON: None Bra nch FINDINGS: Straightening of normal cervical lordosis. The [...] sity of VW LEFT 29 abnormality. Mild [facility] edical 17:08:52 osteoarthrosis of the [facility] left glenohumeral joint. Preliminary Report Dictated [...] withinnormal limits. The soft tissues are unremarkable. [facility], Radiant Results Inft User - 04/23/2019 11:09 [...] Universi ty of RIGHT 29 abnormality. Mild [facility] edical 17:06:54 osteoarthrosis of the [facility] right hip joint. Preliminary Report Dictated [...] soft tissues areunremarkable. Pelvic phleboliths are noted. [facility] 11:07 AM CSTEXAM: XR HIPS 2 RIGHTHISTORY: pain COMPARISON: None.FINDINGS: Radiographs of the right hip demonstrate no acute fractures ordislocations. Mild joint space narrowing of the superolateral hip jointwith associated subchondral sclerosis, osteophytosis and subcortical cysticchanges. Alignment is within normal limits. The soft tissues areunremarkable. 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 XR LUMBAR SPINE 2019-03- XR LUMBAR SPINE 2 [facility] [place]ORY: [place] 46 [place] 15:12:24 pain COMPARISON: None Bra [facility] FINDINGS: The vertebral bodies are normal in height and in normal alignment. No more than mild degenerative changes are present.[facility], [facility] User - 04/23/2019 9:13 AM CSTXR LUMBAR SPINE 2 VWHISTORY: Male 46 years pain COMPARISON: NoneFINDINGS:The vertebral bodies are normal in height and in normal alignment.No more than mild degenerative changes are present. COMP. METABOLIC PANEL ([id number]) 2018-11-18 16:08:00 Test Item Value Reference Range Interpretation Comme nts NA (test code = 2299423773) 142 mmol/L 135-145 K (test code = 0855302561) 4.3 mmol/L 3.5-5 CL (test code = 7002511559) 104 mmol/L 98-108 CO2 TOTAL (test code = 4659548474) 27 mmol/L 23-31 AGAP (test code = 6004022569) 2-16 BUN (test code = 8081106488) 11 mg/dL 7-23 GLUCOSE (test code = 6508329533) 149 mg/dL 70-110 H CREATININE (test code = 0.85 mg/dL 0.6-1.25 3026869677) TOTAL BILI (test code = 0.5 mg/dL 0.1-1.3 2040157608) CALCIUM (test code = 2546596969) 9.5 mg/dL 8.6-10.6 T PROTEIN (test code = 5629918958) 7.8 g/dL 6.3-8.2 ALBUMIN (test code = 9883812285) 4.4 g/dL 3.5-5 ALK PHOS (test code = 9194955906) 50 U/L 34-122 ALT(SGPT) (test code = 8245989074) 52 U/L 9-51 H AST(SGOT) (test code = 0400130760) 49 U/L 13-40 H eGFR Calculation (Non- mL/min/1.73m2 [place]) (test code = 4039740578) eGFR Calculation ( mL/min/1.73m2 [place]) (test code = 6263328768) IVETH (test code = IVETH) Association of [...] tests). Lab Interpretation (test code = Abnormal 85822-1) [facility]. METABOLIC PANEL ([id number])2018-11-18 16:08:00 Test Item Value Reference Range Interpretation Comments NA (test code = 142 mmol/L 135-145 6683019163) K (test code = 4.3 mmol/L 3.5-5 4670184959) CL (test code = 104 mmol/L 98-108 8218416786) CO2 TOTAL (test code = 27 mmol/L 23-31 1816598054) AGAP (test code = 2-16 9442387150) BUN (test code = 11 mg/dL 7-23 6730445334) GLUCOSE (test code = 149 mg/dL 70-110 H 3337538636) CREATININE (test code = 0.85 mg/dL 0.6-1.25 4618507322) TOTAL BILI (test code = 0.5 mg/dL 0.1-1.8 8148068339) CALCIUM (test code = 9.5 mg/dL 8.6-10.6 0033806139) T PROTEIN (test code = 7.8 g/dL 6.3-8.2 1782171716) ALBUMIN (test code = 4.4 g/dL 3.5-5 9420344080) ALK PHOS (test code = 50 U/L 34-122 6726687481) ALT(SGPT) (test code = 52 U/L 9-51 H 4018195508) AST(SGOT) (test code = 49 U/L 13-40 H 3848007237) eGFR Calculation mL/min/1.73m2 (Non-) (test code = 1962400365) eGFR Calculation mL/min/1.73m2 () (test code = 5162896382) IVETH (test code = IVETH) Association of [...] tests). Lab Interpretation Abnormal (test code = 48222-5) [facility] METABOLIC PANEL ([id number])2018-11-18 16:08:00 Test Item Value Reference Range Interpretation Comments NA (test code = 142 mmol/L 135-145 6642397267) K (test code = 4.3 mmol/L 3.5-5 6831396616) CL (test code = 104 mmol/L 98-108 4021172991) CO2 TOTAL (test code = 27 mmol/L 23-31 1069718331) AGAP (test code = 2-16 1166505921) BUN (test code = 11 mg/dL 7-23 3042446282) GLUCOSE (test code = 149 mg/dL 70-110 H 4393829845) CREATININE (test code = 0.85 mg/dL 0.6-1.25 4862126277) TOTAL BILI (test code = 0.5 mg/dL 0.1-1.5 3089037456) CALCIUM (test code = 9.5 mg/dL 8.6-10.6 2445850894) T PROTEIN (test code = 7.8 g/dL 6.3-8.2 7249801014) ALBUMIN (test code = 4.4 g/dL 3.5-5 7126370505) ALK PHOS (test code = 50 U/L 34-122 0245546164) ALT(SGPT) (test code = 52 U/L 9-51 H 6030323266) AST(SGOT) (test code = 49 U/L 13-40 H 5392873436) eGFR Calculation mL/min/1.73m2 (Non-) (test code = 7559040187) eGFR Calculation mL/min/1.73m2 () (test code = 6566261400) IVETH (test code = IVETH) Association of [...] tests). Lab Interpretation Abnormal (test code = 31172-4) [facility] WITH [id number] 15:47:00 Test Item Value Reference Range Interpretation Comments WBC (test code = See_Comment [Automated 1461-2) message] The sy stem which generated this result transmitted reference range : 4.20 - 10.70 10*3/?L. The reference range was not used to interpret this result as normal/abnormal . RBC (test code = See_Comment [Automated 449-8) message] The sy stem which generated this [...] RDW-SD (test code = 40.2 fL 38.5-51.6 15413-8) RDW-CV (test code = 11.9 % 12.1-15.4 L 788-0) PLT (test code = See_Comment [Automated 707-3) message] The sy stem which generated this result transmitted reference range : 150 - 328 10*3/ ?L. The reference r major was not used to interpret this result as normal/abnormal . MPV (test code = 9.9 fL 9.8-13 82446-2) NRBC/100 WBC (test See_Comment [Automat ed code = 6256433774) message] The system which generated this result transmitted reference range : 0.0 - 10.0 /100 WBCs. The refer ence range was not u sed to interpret th is result as normal/abnormal . NRBC x10^3 (test code <0.01 See_Comment [Auto mated = 3572489046) message] The s ystem which generated this result transmitted reference range : 10*3/?L. The reference range was not used to interpret this result as normal/abnormal . GRAN MAT (NEUT) % 52.4 % (test code = 770-8) IMM GRAN % (test code 0.20 % = 9576873702) LYMPH % (test code = 39.4 % 736-9) MONO % (test code = 6.1 % 5905-5) EOS % (test code = 1.4 % 713-8) BASO % (test code = 0.5 % 706-2) GRAN MAT x10^3(ANC) 3.11 10*3/uL 1.99-6.95 (test code = 0975352451) IMM GRAN x10^3 (test <0.03 0-0.06 code = 3734558613) LYMPH x10^3 (test code 2.33 10*3/uL 1.09-3.23 = 731-0) MONO x10^3 (test code 0.36 10*3/uL 0.36-1.02 = 742-7) EOS x10^3 (test code = 0.08 10*3/uL 0.06-0.53 711-2) BASO x10^3 (test code 0.03 10*3/uL 0.01-0.09 = 704-7) Lab Interpretation Abnormal (test code = 73348-4) [facility] WITH [id number] 15:47:00 Test Item Value Reference Range Interpretation [...] RDW-SD (test code = 40.2 fL 38.5-51.6 74109-6) RDW-CV (test code = 11.9 % 12.1-15.4 L 788-0) PLT (test code = See_Comment [Automated 777-3) message] The sy stem which generated this result transmitted reference range : 150 - 328 10*3/ ?L. The reference r major was not used to interpret this result as normal/abnormal . MPV (test code = 9.9 fL 9.8-13 67764-7) NRBC/100 WBC (test See_Comment [Automat ed code = 3616553745) message] The system which generated this result transmitted reference range : 0.0 - 10.0 /100 WBCs. The refer ence range was not u sed to interpret th is result as normal/abnormal . NRBC x10^3 (test code <0.01 See_Comment [Auto mated = 8026450239) message] The s ystem which generated this result transmitted reference range : 10*3/?L. The reference range was not used to interpret this result as normal/abnormal . GRAN MAT (NEUT) % 52.4 % (test code = 770-8) IMM GRAN % (test code 0.20 % = 9477975534) LYMPH % (test code = 39.4 % 736-9) MONO % (test code = 6.1 % 5905-5) EOS % (test code = 1.4 % 713-8) BASO % (test code = 0.5 % 706-2) GRAN MAT x10^3(ANC) 3.11 10*3/uL 1.99-6.95 (test code = 2632003841) IMM GRAN x10^3 (test <0.03 0-0.06 code = 2149124138) LYMPH x10^3 (test code 2.33 10*3/uL 1.09-3.23 = 731-0) MONO x10^3 (test code 0.36 10*3/uL 0.36-1.02 = 742-7) EOS x10^3 (test code = 0.08 10*3/uL 0.06-0.53 711-2) BASO x10^3 (test code 0.03 10*3/uL 0.01-0.09 = 704-7) Lab Interpretation Abnormal (test code = 40334-9) [facility] WITH [id number] 15:47:00 Test Item Value Reference Range Interpretation Comments WBC (test code = See_Comment [Automated 8190-2) message] The sy stem which generated this result transmitted reference range : 4.20 - 10.70 10*3/?L. The reference range was not used to interpret this result as normal/abnormal . RBC (test code = See_Comment [Automated 989-8) message] The sy stem which generated this [...] RDW-SD (test code = 40.2 fL 38.5-51.6 92227-8) RDW-CV (test code = 11.9 % 12.1-15.4 L 788-0) PLT (test code = See_Comment [Automated 777-3) message] The sy stem which generated this result transmitted reference range : 150 - 328 10*3/ ?L. The reference r major was not used to interpret this result as normal/abnormal . MPV (test code = 9.9 fL 9.8-13 25509-9) NRBC/100 WBC (test See_Comment [Automat ed code = 9905747010) message] The system which generated this result transmitted reference range : 0.0 - 10.0 /100 WBCs. The refer ence range was not u sed to interpret th is result as normal/abnormal . NRBC x10^3 (test code <0.01 See_Comment [Auto mated = 8403230003) message] The s ystem which generated this result transmitted reference range : 10*3/?L. The reference range was not used to interpret this result as normal/abnormal . GRAN MAT (NEUT) % 52.4 % (test code = 770-8) IMM GRAN % (test code 0.20 % = 8582827268) LYMPH % (test code = 39.4 % 736-9) MONO % (test code = 6.1 % 5905-5) EOS % (test code = 1.4 % 713-8) BASO % (test code = 0.5 % 706-2) GRAN MAT x10^3(ANC) 3.11 10*3/uL 1.99-6.95 (test code = 1207338820) IMM GRAN x10^3 (test <0.03 0-0.06 code = 6082203569) LYMPH x10^3 (test code 2.33 10*3/uL 1.09-3.23 = 731-0) MONO x10^3 (test code 0.36 10*3/uL 0.36-1.02 = 742-7) EOS x10^3 (test code = 0.08 10*3/uL 0.06-0.53 711-2) BASO x10^3 (test code 0.03 10*3/uL 0.01-0.09 = 704-7) Lab Interpretation Abnormal (test code = 51141-9) [facility] WITH [id number] 15:47:00 Test Item Value Reference Range Interpretation [...] RDW-SD (test code = 40.2 fL 38.5-51.6 13457-1) RDW-CV (test code = 11.9 % 12.1-15.4 L 788-0) PLT (test code = See_Comment [Automated 777-3) message] The sy stem which generated this result transmitted reference range : 150 - 328 10*3/ ?L. The reference r major was not used to interpret this result as normal/abnormal . MPV (test code = 9.9 fL 9.8-13 69006-5) NRBC/100 WBC (test See_Comment [Automat ed code = 2859289067) message] The system which generated this result transmitted reference range : 0.0 - 10.0 /100 WBCs. The refer ence range was not u sed to interpret th is result as normal/abnormal . NRBC x10^3 (test code <0.01 See_Comment [Auto mated = 7606625982) message] The s ystem which generated this result transmitted reference range : 10*3/?L. The reference range was not used to interpret this result as normal/abnormal . GRAN MAT (NEUT) % 52.4 % (test code = 770-8) IMM GRAN % (test code 0.20 % = 4839490854) LYMPH % (test code = 39.4 % 736-9) MONO % (test code = 6.1 % 5905-5) EOS % (test code = 1.4 % 713-8) BASO % (test code = 0.5 % 706-2) GRAN MAT x10^3(ANC) 3.11 10*3/uL 1.99-6.95 (test code = 8829835037) IMM GRAN x10^3 (test <0.03 0-0.06 code = 9409815820) LYMPH x10^3 (test code 2.33 10*3/uL 1.09-3.23 = 731-0) MONO x10^3 (test code 0.36 10*3/uL 0.36-1.02 = 742-7) EOS x10^3 (test code = 0.08 10*3/uL 0.06-0.53 711-2) BASO x10^3 (test code 0.03 10*3/uL 0.01-0.09 = 704-7) Lab Interpretation Abnormal (test code = 76895-0) [facility] WITH [id number] 15:47:00 Test Item Value Reference Range Interpretation Comments WBC (test code = See_Comment [Automated 4396-2) message] The sy stem which generated this result transmitted reference range : 4.20 - 10.70 10*3/?L. The reference range was not used to interpret this result as normal/abnormal . RBC (test code = See_Comment [Automated 338-8) message] The sy stem which generated this [...] RDW-SD (test code = 40.2 fL 38.5-51.6 87150-4) RDW-CV (test code = 11.9 % 12.1-15.4 L 788-0) PLT (test code = See_Comment [Automated 777-3) message] The sy stem which generated this result transmitted reference range : 150 - 328 10*3/ ?L. The reference r major was not used to interpret this result as normal/abnormal . MPV (test code = 9.9 fL 9.8-13 99525-3) NRBC/100 WBC (test See_Comment [Automat ed code = 2613709012) message] The system which generated this result transmitted reference range : 0.0 - 10.0 /100 WBCs. The refer ence range was not u sed to interpret th is result as normal/abnormal . NRBC x10^3 (test code <0.01 See_Comment [Auto mated = 7905561573) message] The s ystem which generated this result transmitted reference range : 10*3/?L. The reference range was not used to interpret this result as normal/abnormal . GRAN MAT (NEUT) % 52.4 % (test code = 770-8) IMM GRAN % (test code 0.20 % = 5772701639) LYMPH % (test code = 39.4 % 736-9) MONO % (test code = 6.1 % 5905-5) EOS % (test code = 1.4 % 713-8) BASO % (test code = 0.5 % 706-2) GRAN MAT x10^3(ANC) 3.11 10*3/uL 1.99-6.95 (test code = 4649805073) IMM GRAN x10^3 (test <0.03 0-0.06 code = 8213191027) LYMPH x10^3 (test code 2.33 10*3/uL 1.09-3.23 = 731-0) MONO x10^3 (test code 0.36 10*3/uL 0.36-1.02 = 742-7) EOS x10^3 (test code = 0.08 10*3/uL 0.06-0.53 711-2) BASO x10^3 (test code 0.03 10*3/uL 0.01-0.09 = 704-7) Lab Interpretation Abnormal (test code = 17868-5) [facility]"
[2022-08-19] MEDS ORDERED: LIDOCAINE 1% 20 ML MDV ONE (16:26)
[2022-08-19] MEDS ORDERED: ONDANSETRON 4 MG/2 ML VIAL ONE (16:49)
[2022-08-19] MEDS ORDERED: MORPHINE 4 MG/ML SYR ONE (16:49)
[2022-08-19] MEDS ORDERED: ONDANSETRON 4 MG (ODT) TAB ONE (16:54)
--- NOTE | 2022-08-19 17:04 | RAD REPORT ---
EXAM DESCRIPTION: RAD - Knee Right 3 View - 08/19/2022 4:06 pm CLINICAL HISTORY: knee pain COMPARISON: <Comparisons> TECHNIQUE: Right knee, 3 views. FINDINGS: No fracture, dislocation or periosteal reaction.No joint effusion seen. No joint space myra rowing. Focal soft tissue swelling along the tibial tuberosity, nonspecific. Clinical concerns for internal derangement or occult bony injury could be further assessed with MR im aging. IMPRESSION: Nonspecific soft tissue swelling along the tibial tuberosity. No acute osseus abnormalit y.
[2022-08-19 18:14] LABS: Appearance TURBID (CLEAR); Body Fluid Source SYNOVIAL; Body Fluid WBC 43600 /mm^3; Color of fluid Pink (COLORLESS)
--- NOTE | 2022-08-19 18:36 | EDPHYS ---
Physician Documentation [facility] Name: Marvin Chow Age: 47 yrs Sex: Male : 1975 Arrival Date: 08/19/2022 Time: 13:56 Bed 29 Private MD: OLIVIER Physician Josse Puri HPI: 08/19 14:14 This 47 yrs old Male presents to ER via Ambulatory with complaints of Knee Pain. jmm 14:14 The patient presents with pain. Onset: The symptoms/episode began/occurred today. jmm Modifying factors: The symptoms are alleviated by nothing. the symptoms are aggravated by movement. Associated signs and symptoms: Pertinent positives: swelling. Is a 47-year-old male with history of hypertension that presents emerged apartment with complaints of right knee pain. Patient states the area he is having pain is normally not swollen. Patient states he awoke to the swelling. Patient states since he was a child he has had point tenderness in that area but never had swelling. Patient denies fever chills. Patient denies any type of trauma. Historical: - Allergies: 14:16 No Known Allergies; nj1 - PMHx: 14:16 Hypertension; Prolonged QT wave; heart flutter; mitro valve prolapse; nj1 - PSHx: 14:16 None; nj1 - Immunization history:: Client reports having NOT received the Covid vaccine. - Social history:: Smoking status: Patient denies any tobacco usage or history of. ROS: 14:14 Constitutional: Negative for fever, chills, and weight loss, Cardiovascular: Negative jmm for chest pain, palpitations, and edema, Respiratory: Negative for shortness of breath, cough, wheezing, and pleuritic chest pain. 14:14 MS/extremity: Positive for pain, swelling. 14:14 All other systems are negative. Exam: 14:14 Constitutional: This is a well developed, well nourished patient who is awake, alert, jmm and in no acute distress. Head/Face: atraumatic. Eyes: EOMI, no conjunctival erythema appreciated ENT: Moist Mucus Membranes Neck: Trachea midline, Supple Chest/axilla: Normal chest wall appearance and motion. Cardiovascular: Regular rate and rhythm. No edema appreciated Respiratory: Normal respirations, no respiratory distress appreciated Abdomen/GI: Non distended Back: Normal ROM 14:14 Skin: Appearance: Color: normal in color, Erythema noted to the right infrapatellar region. 14:14 Neuro: Orientation: is normal, Mentation: is normal, Memory: is normal. 14:14 Psych: Behavior/mood is pleasant, cooperative. Vital Signs: 14:12 BP 190 / 119; Pulse 93; Resp 18; Pulse Ox 100% ; Weight 92.99 kg; Height 5 ft. 10 in. ; nj1 Pain 10/10; 15:44 Temp 99.5(O); nj1 14:12 Body Mass Index 29.41 (92.99 kg, 177.8 cm) [facility] 14:12 Pain Scale: Adult [facility] Procedures: 18:33 Joint Treatment: Aspiration of using 18 gauge needle, Lidocaine, Removed sweetie fluid, [facility] Dressed with 4x4s, Patient tolerated well. of right knee. MDM: 14:14 Patient medically screened. [facility] 18:32 Differential diagnosis: Bursitis. Data reviewed: vital signs, nurses notes. [facility] 18:33 I considered the following discharge prescriptions or medication management in the [facility] emergency department Medications were administered in the Emergency Department. See MAR. Independent interpretation of the following test(s) in the Emergency Department X-Ray: My interpretation is No fracture appreciated. Counseling: I had a detailed discussion with the patient and/or guardian regarding: the historical points, exam findings, and any diagnostic results supporting the discharge/admit diagnosis, lab results, radiology results, the need for outpatient follow up, to return to the emergency department if symptoms worsen or persist or if there are any questions or concerns that arise at home. ED course: 3 mils of fluid was aspirated from the right infrapatellar region. Cell count was under 50,000. Patient advised to follow-up with orthopedics for further evaluation due to the pain. Will be covered with oral antibiotics. Patient otherwise given strict return precautions. Patient understood agreed to plan of care. 08/19 15:22 Order name: Crystals, Fluid; Complete Time: 17:33 [facility] 08/19 15:22 Order name: Body Fluid Culture [facility] 08/19 15:28 Order name: Body Fluid Cell Count; Complete Time: 18:19 [facility] 08/19 14:23 Order name: Knee Right 3 View XRAY; Complete Time: 17:08 [facility] 08/19 15:00 Order name: Misc. Order: temp; Complete Time: 15:44 [facility] 08/19 16:34 Order name: Misc. Order: aspiration complete, please send to lab; Complete Time: 16:55 [facility] Administered Medications: 16:16 Drug: Lidocaine Infiltration (1 %) 20 ml Volume: 20 ml; Route: Infiltration; hb 16:50 Drug: morphine IM 4 mg Route: IM; Site: left deltoid; hb 16:50 Drug: Ondansetron PO 4 mg Route: PO; hb 18:47 Drug: Ketorolac IM 30 mg Route: IM; Site: right deltoid; hb Disposition Summary: 08/19/22 18:35 Discharge Ordered Location: Home [facility] Condition: Stable [facility] Diagnosis - Infrapatellar bursitis [facility] Followup: [facility] - With: Alex Hallman MD - When: 2 - 3 days - Reason: Recheck today's complaints, Continuance of care, Re-evaluation by your physician Discharge Instructions: - Discharge Summary Sheet [facility] - Bursitis [facility] Forms: - Medication Reconciliation Form [facility] - Thank You Letter [facility] - Antibiotic Education [facility] - Prescription Opioid Use [facility] - Work release form eb Prescriptions: - Clindamycin HCl 300 mg Oral Capsule - take 1 capsule by ORAL route every 6 hours for 10 days; 40 capsule; Refills: 0, [facility] Product Selection Permitted - Diclofenac Sodium 75 mg Oral Tablet Sustained Release - take 1 tablet by ORAL route 2 times per day; 30 tablet; Refills: 0, Product [facility] Selection Permitted - Bactrim DS 800-160 mg Oral Tablet - take 1 tablet by ORAL route every 12 hours for 10 days; 20 tablet; Refills: 0, [facility] Product Selection Permitted Signatures: Dispatcher [employer] EDMS Thony Rodriguez PA PA jmm Denita Schmitt RN RN Felisha Vargas RN RN nj1 Corrections: (The following items were deleted from the chart) 14:18 14:16 PMHx: Prolongued QT wave; nj1 nj1 14:18 14:16 PMHx: Hypercholesterolemia; [facility] nj1 15:37 15:28 Body Fluid Crystals ordered. EDMS EDMS
--- NOTE | 2022-08-19 18:36 | ER ---
Nurse's Notes [facility] Name: Marvin Chow Age: 47 yrs Sex: Male : 1975 Arrival Date: 08/19/2022 Time: 13:56 Bed 29 Private MD: Diagnosis: Infrapatellar bursitis Presentation: 08/19 14:12 Chief complaint: Patient states: Right knee pain, swollen since this morning. Denies nj1 injury. Hard to walk. Ebola Screen: Patient denies travel to an Ebola-affected area in the 21 days before illness onset. Initial Sepsis Screen: Does the patient meet any 2 criteria? No. Patient's initial sepsis screen is negative. Does the patient have a suspected source of infection? No. Patient's initial sepsis screen is negative. Risk Assessment: Do you want to hurt yourself or someone else? Patient reports no desire to harm self or others. Onset of symptoms was August 19, 2022. 14:12 Method Of Arrival: Ambulatory [facility] 14:12 Acuity: GERARDO 3 [facility] 14:12 Coronavirus screen: Vaccine status: Patient reports being unvaccinated. [facility] Historical: - Allergies: 14:16 No Known Allergies; nj1 - PMHx: 14:16 Hypertension; Prolonged QT wave; heart flutter; mitro valve prolapse; ut1 - PSHx: 14:16 None; nj1 - Immunization history:: Client reports having NOT received the Covid vaccine. - Social history:: Smoking status: Patient denies any tobacco usage or history of. Screenin:25 [facility] ED Fall Risk Assessment (Adult) Score/Fall Risk Level 0 - 2 = Low Risk hb Oriented to surroundings, Maintained a safe environment. Abuse screen: Denies threats or abuse. Denies injuries from another. Nutritional screening: No deficits noted. Tuberculosis screening: No symptoms or risk factors identified. Assessment: 16:25 General: Appears in no apparent distress. Behavior is calm, cooperative. Pain: Pain hb currently is 10 out of 10 on a pain scale. Neuro: Level of Consciousness is awake, alert, obeys commands, Oriented to person, place, time, situation. Cardiovascular: Patient's skin is warm and dry. Respiratory: Respiratory effort is even, unlabored, Respiratory pattern is regular, symmetrical. GI: No signs and/or symptoms were reported involving the gastrointestinal system. : No signs and/or symptoms were reported regarding the genitourinary system. EENT: No signs and/or symptoms were reported regarding the EENT system. Derm: Skin is pink, warm \T\ dry. Musculoskeletal: Reports RIGHT KNEE PAIN AND SWELLING. 18:00 Reassessment: Patient appears in no apparent distress at this time. Patient and/or hb family updated on plan of care and expected duration. Pain level reassessed. Patient is alert, oriented x 3, equal unlabored respirations, skin warm/dry/pink. Vital Signs: 14:12 BP 190 / 119; Pulse 93; Resp 18; Pulse Ox 100% ; Weight 92.99 kg; Height 5 ft. 10 in. ; nj1 Pain 10/10; 15:44 Temp 99.5(O); nj1 14:12 Body Mass Index 29.41 (92.99 kg, 177.8 cm) [facility] 14:12 Pain Scale: Adult [facility] ED Course: 14:01 Patient arrived in ED. am2 14:01 Thony Rodriguez PA is PHCP. [facility] 14:01 Josse Puri MD is Attending Physician. [facility] 14:16 Triage completed. nj1 14:18 Arm band placed on left wrist. nj1 16:08 Knee Right 3 View XRAY In Process Unspecified. EDMS 16:17 Denita Schmitt, RN is Primary Nurse. hb 16:25 Patient has correct armband on for positive identification. hb 16:25 No provider procedures requiring assistance completed. Patient did not have IV access hb during this emergency room visit. 18:35 Alex Hallman MD is Referral Physician. [facility] Administered Medications: 16:16 Drug: Lidocaine Infiltration (1 %) 20 ml Volume: 20 ml; Route: Infiltration; hb 16:50 Drug: morphine IM 4 mg Route: IM; Site: left deltoid; hb 16:50 Drug: Ondansetron PO 4 mg Route: PO; hb 18:47 Drug: Ketorolac IM 30 mg Route: IM; Site: right deltoid; hb Medication: 16:25 VIS not applicable for this client. hb Outcome: 18:35 Discharge ordered by . jmm 19:17 Discharged to home via wheelchair, with family. pf1 19:17 Condition: improved 19:17 Discharge instructions given to patient, family, Instructed on discharge instructions, follow up and referral plans. Demonstrated understanding of instructions, follow-up care, medications, Prescriptions given X 3. 19:18 Patient left the ED. pf1 Signatures: Dispatcher [employer] EDMS Thony Rodriguez PA PA jmm Baxter, Heather, RN RN Lillie Valencia 2 Jannet Hernandez RN RN pf1 Felisha Vargas RN RN nj1 Corrections: (The following items were deleted from the chart) 14:18 14:12 BP 190 / 119; Pulse 93bpm; Resp 18bpm; Pulse Ox 100%; nj1 nj1 14:18 14:16 PMHx: Prolongued QT wave; ut1 nj1 14:18 14:16 PMHx: Hypercholesterolemia; [facility] nj1
[2022-08-19] MEDS ORDERED: KETOROLAC 30 MG/ML INJ ONE (18:48)
[2022-08-19 19:22] VITALS: BP 190/119; O2SAT 100
[2022-08-19 19:23] VITALS: TEMP 99.5
== END 2022-08-19 19:18 | disposition home or self-care (01) ==
LOC: ER 13:56
DX: M71.561 Other bursitis, not elsewhere classified, right knee (principal)
CPT/HCPCS: 36415; 87070; 87077; 87186; 89050; 89060; 96372; 99284; J2001; J2405; Q0162

== ENCOUNTER 2022-08-23 17:56 | Emergency (ER) | payer SELFPAY ==
--- OUTSIDE RECORDS SUMMARY | 2022-08-23 18:02 | XMS REPORT | Continuity of Care Document ---
:1975 Author Organization [facility] t Address [address] [facility] [address] [place] [address] Care Team Providers Name Role Phone PCP, PATIENT DOES NOT HAVE A Primary Care Physician STEVEN Mi Attending Clinician Unavailable Shanel CANCHOLA, Steven SamsonHRadha Attending Clinician Doctor Unassigned, [place] Attending Clinician Unavailable Tk Vernon Attending Clinician [...] ally from Medical request Branch for surgery [id number] Right Right Disease Active Univers inguinal inguinal 7-14 ity of hernia hernia 00:00: [address] No known No known Disease Unive rs active active ity of problems problems [facility] Allergies, Adverse Reactions, Alerts Allergy Allergy Status Severity Reaction(s) Onset Inactive Treating Comm ents Source Name Type Date Date Clinician Amlodipi Propensi Active Swelling Univ ers ne ty to 7-31 ity of adverse 00:00: [place] reaction 00 Medical s Branch NO KNOWN Drug Active Univers ALLERGIE Class ity of S [facility] Social History Social Habit Start Date Stop Date Quantity Comments Source History of Cigarette Smoker Universi ty of tobacco use [facility] [place] [facility] Exposure to Not sure University of SARS-CoV-2 [place] Medical (event) Branch Alcohol intake 2018-12-04 2018-12-04 University of 00:00:00 00:00:00 [facility] [place] [facility] Tobacco Comment 2016-10-06 2016-10-06 quit 10 yrs ago Univ ersity of 00:00:00 00:00:00 [facility] [place] [facility] Alcohol Comment 2016-10-06 2016-10-06 quit 7 yrs ago Unive rsity of 00:00:00 00:00:00 [facility] [place] [facility] Sex Assigned At [birth year] [facility] y of 00:00:00 00:00:00 [facility] Smoking Status Start Date Stop Date Source Unknown if ever smoked [facility] y [facility] Former smoker 2018-12-04 00:00:00 2018-12-04 00:00:00 [facility] Medications Ordered Filled Start Stop Current Ordering Indication Dosage Frequency Signature Comments Components Source Medication Medication Date Date Medication? Clinician (SIG) Name Name No known No Univers medications 2-28 ity of 09:43: [place] 54 [facility] Branch carvediloL Yes [id number] 12.5mg Take 1 Univers 12.5 mg 2-28 tablet by ity of tablet 00:00: mouth 2 [place] 00 (two) Medical times [place] daily with meals. RANITIDINE 2018- No Take by Uni vers HCL ORAL 12-04 mouth as ity of 03:40: 00:00 needed. [place] 04 :00 [facility] acetaminoph Yes 1{tbl} 1 tablet, Univers en-codeine 12-04 Oral, ity of (TYLENOL 02:36: Q6HPRN, [place] #3) 300-30 42 Starting Medic al mg tablet 1 e [place] tablet 12/03/18 at 2136, Until Discontinu ed, [...] Tue Medical E MPF) 0.5 12/03/18 at [facility] nc % (5 mg/mL) 1125, injection [...] Tue Medical E MPF) 0.5 12/03/18 at [facility] nc % (5 mg/mL) 1125, injection [...] en ADULT 12-03 Infusion, ity o f ([facility]) 15:15: 16:00 Administer [place] injection 00 :50 over 15 Medical Minutes, Branch ONCE INTRA PROCEDURE, Starting 12/03/18 at 1015, Until Sun12/03/18 at 1100, Routine, Intra-op acetaminoph 2019- No IV Unive rs en ADULT 12-03 Infusion, ity o f ([facility]) 15:15: 16:00 Administer [place] injection 00 :50 over 15 Medical Minutes, Branch ONCE INTRA PROCEDURE, Starting 12/03/18 at 1015, Until 12/03/18 at 1100, Routine, Intra-op acetaminoph 2019- No IV Unive rs en ADULT 12-03 Infusion, ity o f ([facility]) 15:15: 16:00 Administer [place] injection 00 :50 over 15 Medical Minutes, Branch ONCE INTRA PROCEDURE, Starting 12/03/18 at 1015, Until 12/03/18 at 1100, Routine, Intra-op dexMEDEtomi 2019-0 2019- No CONTINUOUS Univers dine 12-03 PRN, ity of (PRECEDEX) 15:03: 16:00 [place] 20 mcg in 00 :50 Tue Medical NaCl 0.9% 12/03/18 at [facility] (NS) 1003, piggyback Until Tu12/03/18 at 1100, 50 mL, Intra-op dexMEDEtomi 2019- No CONTINUOUS Univers dine 12-03 PRN, ity of (PRECEDEX) 15:03: 16:00 [place] 20 mcg in 00 :50 Tue Medical NaCl 0.9% 12/03/18 at [facility] (NS) 1003, piggyback Until 12/03/18 at 1100, 50 mL, Intra-op dexMEDEtomi 2018- No CONTINUOUS Univers dine 12-03 PRN, ity of (PRECEDEX) 15:03: 16:00 [place] 20 mcg in 00 :50 Tue Medical NaCl 0.9% 12/03/18 at [facility] (NS) 1003, piggyback Until 12/03/18 at 1100, [...] at 1100, Routine, Intra-op acetaminoph 2019- No [id number] 1{tbl} Take 1 Univers en-codeine 12-03 tablet by ity of 300-30 mg 00:00: 04:59 mouth [place] tablet 00 :00 every 6 Medical (six) Branch hours as needed for Pain (scale 4-6) or Pain (scale 7-10) for up to 7 days. acetaminoph 2019- No [id number] 1{tbl} Take 1 Univers en-codeine 12-03 tablet by ity of 300-30 mg 00:00: 00:00 mouth [place] tablet 00 :00 every 6 Medical (six) Branch hours as needed for Pain (scale 4-6) or Pain (scale 7-10) for up to 7 days. RANITIDINE Yes Take by Univ ers HCL ORAL 9-09 mouth as ity of 15:59: needed. [facility] RANITIDINE Yes Take by Univ ers HCL ORAL 9-09 mouth as ity of 15:59: needed. [place] [facility] RANITIDINE Yes Take by Univ ers HCL ORAL 9-09 mouth as ity of 15:59: needed. [place] [facility] RANITIDINE Yes Take by Univ ers HCL ORAL 8-27 mouth as ity of 00:09: needed. [place] [facility] RANITIDINE Yes Take by Univ ers HCL ORAL 8-27 mouth as ity of 00:09: needed. [place] [facility] RANITIDINE Yes Take by Univ ers HCL ORAL 8-26 mouth as ity of 14:29: needed. [address] RANITIDINE Yes Take by Univ ers HCL ORAL 8-26 mouth as ity of 14:29: needed. [address] RANITIDINE 2019-0 Yes Take by Univ ers HCL ORAL 8-26 mouth as ity of 14:29: needed. [place] [address] Medical Branch RANITIDINE 2019-0 Yes Take by Univ ers HCL ORAL 8-26 mouth as ity of 14:29: needed. [place] [address] Medical Branch atenolol 50 2016-03 Yes 50mg [...] capsule by ity of 00:00: mouth at [place] 00 bedtime. Medical Branch atenolol 50 2016-03 [...] capsule by ity of 00:00: mouth at [place] 00 bedtime. Medical Branch atenolol 50 2016-03 [...] No known No Univers medications ity of [facility] [place] [facility] No known No Univers medications ity of [facility] [place] [facility] No known No Univers medications ity of [facility] [place] [facility] No known No Univers medications ity of [facility] [place] [facility] No known No [facility] Vital Signs Vital Name Observation Time Observation Value Comments Source Systolic blood 2021-05-23 188 mm[Hg] University of pressure 15:46:00 [facility] [place] [facility] Diastolic blood 2021-05-23 133 mm[Hg] University o f pressure 15:46:00 [facility] [place] [facility] Heart rate 2021-05-23 99 /min University of 15:46:00 [facility] [place] [facility] Body height 2021-05-23 177.8 cm University of 15:42:00 [facility] [place] [facility] Body weight 2021-05-23 102.711 kg University of 15:42:00 [facility] [place] [facility] BMI 2021-05-23 32.49 kg/m2 University of 15:42:00 [facility] [place] [facility] Oxygen saturation 2021-05-23 97 /min [facility] in Arterial blood 15:42:00 [facility] by Pulse oximetry [place] Systolic blood 2018-12-03 166 mm[Hg] notified nurse University of pressure 17:18:00 [facility] [place] [facility] Diastolic blood 2018-12-03 98 mm[Hg] notified nurse University of pressure 17:18:00 [facility] [place] [facility] Heart rate 2018-12-03 61 /min University of 17:18:00 [facility] [place] [facility] Body temperature 2018-12-03 36.72 Nahomi University of 17:18:00 [facility] [place] [facility] Respiratory rate 2018-12-03 20 /min University of 17:18:00 [facility] [place] [facility] Oxygen saturation 2018-12-03 97 /min [facility] in Arterial blood 17:18:00 [facility] by Pulse oximetry [place] Body height 2018-12-02 177.8 cm University of 17:50:00 [facility] [place] [facility] Body weight 2018-12-02 92.08 kg University of 17:50:00 [facility] [place] [facility] BMI 2018-12-02 29.13 kg/m2 University of 17:50:00 [facility] [place] [facility] Systolic blood 2018-11-18 189 mm[Hg] University of pressure 14:59:00 [facility] [place] [facility] Diastolic blood 2018-11-18 100 mm[Hg] [facility] pressure 14:59:00 [facility] [place] [facility] Heart rate 2018-11-18 75 /min [facility] 14:59:00 [facility] [place] [facility] Body temperature 2018-11-18 36.56 Nahomi [facility] 14:59:00 [facility] [place] [facility] Body height 2018-11-18 177.8 cm [facility] 14:59:00 [facility] [place] [facility] Body weight 2018-11-18 91.627 kg [facility] 14:59:00 [facility] [place] [facility] BMI 2018-11-18 28.98 kg/m2 University 14:59:00 [facility] [place] [facility] Oxygen saturation 2018-11-18 99 /min [facility] Arterial blood 14:59:00 [facility] by Pulse oximetry Branch Procedures Procedure Date / Time Performing Clinician Source Performed AUTHORIZATION FOR 2021-05-16 06:01:00 Doctor Unassigned, No Univ [facility] RELEASE OF PHI Name Medical Branch XR CERVICAL SPINE 2 VW 2019-05-07 14:17:02 [facility]k [facility] LUM[facility] SP[facility] 2 VW 2019-04-23 14:14:[address] [facility] XR HIPS 2 VW RIGHT 2019-04-23 14:14:05 Leonela Baker [facility] XR SHOULDER 2+ VW LEFT 2019-04-23 14:13:45 [facility] EXTERNAL PROVIDER 2018-12-11 05:01:00 Doctor Unassigned, No Univ [facility] RECORDS Name Medical [place] NERVE BLOCK 2018-12-03 23:15:[address] [facility] INTUBATION 2018-12-03 15:12:23 Xavi Serrano [place] o f [facility] [place] [facility] CBC WITH DIFFERENTIAL 2018-11-18 15:33:00 Flash Coello [facility] COMP. METABOLIC PANEL 2018-11-18 15:33:00 Flash Coello [facility] ([id number]) Medical [place] Encounters Start End Encounter Admission Attending Care Care Encounter Source Date/Time Date/Time Type Type Clinicians Facility Department ID 2021-07-22 2021-07-22 Outpatient Isa UGARTE [facility] [id number] [facility] [place] [facility] 09:00:00 09:00:00 STEVEN gama [facility] 2021-07-22 2021-07-22 Outpatient R SHANEL [facility] [id number] Univers 09:00:00 09:00:00 SENDIL ity [facility] 2021-07-22 2021-07-22 Outpatient R SHANEL [facility] [id number] Univers 09:00:00 09:00:00 SENDIL ity [facility] 2021-05-24 2021-05-24 [id number] Univers 09:00:00 23:59:00 SENDIL ity [facility] 2021-05-24 2021-05-24 Outpatient R SHANEL [facility] [id number] Univers 09:00:00 09:00:00 SENDIL ity [facility] 2021-05-23 2021-05-23 [facility] [id number] Univers 09:30:00 16:47:19 SENDIL ity [facility] 2021-05-23 2021-05-23 [facility] [id number] Univers 09:30:00 10:00:00 Visit Sendil Aiden CASTRO [id number] ity of [place]2.686 [place] SRINIVASAN [id number] [address] 2021-05-23 2021-05-23 [facility] [id number] Univers 09:30:00 09:30:00 SENDIL ity [facility] 2021-05-23 2021-05-23 [facility] [id number] Univers 09:30:00 09:30:00 SENDIL ity [facility] 2021-05-16 2021-05-16 Orders Doctor WILDE 1.2.840.114 [id number] Univers 00:00:00 00:00:00 Only Unassigned, SHERIN [id number] ity of [place] [facility] 4.2.7.2.686 [place] as [id number] [address] 2019-05-07 2019-05-07 [facility] Juvenal Vernon/St 1.2.840.114 [id number] Univers 06:30:00 23:59:00 Encounter Tk avilezo [id number] ity of [facility] 4[place] [facility] [id number] Med ical 807 Branch 2019-04-23 2019-04-23 [facility] Juvenal Baker/St 1.2.840.114 [id number] Univers 06:20:00 23:59:00 Encounter Leonela avilezo [id number] ity of [facility] [place] [facility] [id number] Med ical 807 Branch 2019-04-23 2019-04-23 [facility] Juvenal Baker/ 1.2.840.114 [id number] Univers 06:19:00 06:19:00 Encounter Leonela avilezo 350.1.13.10 ity of [facility] 4[place] [facility] [id number] Med ical 807 Branch 2019-04-23 2019-04-23 [facility] 1.2.840.114 [id number] Univers 06:19:00 06:19:00 Encounter Leonela avilezo [id number] ity of [facility] 4[place] [facility] [id number] Med ical 807 Branch 2018-12-11 2018-12-11 Orders Doctor WILDE 1.2.840.114 [id number] Univers 00:00:00 00:00:00 Only Unassigned, SHERIN 350.1.13.10 ity of [place] [facility] 4.2.7.2.686 [place] [id number] [facility] 009 Branch 2018-12-03 2018-12-05 [facility] TESFAYE Rivera 1.2.840.114 [id number] Univers 22:00:00 02:22:00 [facility] [id number] [place] [id number] [facility] 105 Branch 2018-12-02 2018-12-03 [facility] TESFAYE Rivera 1.2.840.114 [id number] Univers 10:58:00 21:59:00 Encounter [facility] [id number] [place] [id number] [facility] 005 Branch 2018-12-03 2018-12-03 Anesthesia Ilana Serrano 1.2.840.114 [id number] Univers 09:40:00 11:00:00 Xavi Sherin 350.1.13.10 it y of Hospital 4.2.7.2.686 [place] [id number] [facility] 103 Branch 2018-11-18 2018-11-20 Office Surgery, Td General TDCJ 1.2.8 40.114 [id number] Univers 07:33:30 15:45:28 Visit [facility] 350.1.13.10 [place] [id number] [facility] 215 Branch 2018-11-18 2018-11-18 Hospital [facility] 1.2.840.114 [id number] [facility] 06:30:00 19:08:00 Encounter [facility] 350.1.13.10 it[place] [id number] [facility] 068 Branch Results Test Description Test [...] sity of VW LEFT 29 abnormality. 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 Preliminary Report Dictated by [...] withinnormal limits. The soft tissues are unremarkable. [facility], Radiant Results Inft User - 04/23/2019 11:09 [...] Universi ty of RIGHT 29 abnormality. 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 Preliminary Report Dictated by [...] Pelvic phleboliths are noted. [facility] User - 04/23/2019 11:07 AM CSTEXAM: XR [...] LUMBAR SPINE 2019-03- XR LUMBAR SPINE 2 [facility] HISTORY: [place] 46 years [place] 15:12:24 pain COMPARISON: None Bra [facility] FINDINGS: The vertebral bodies are normal in height and in normal alignment. No more than mild degenerative changes are present.[facility] User - 04/23/2019 9:13 AM CSTXR LUMBAR SPINE 2 VWHISTORY: Male 46 years pain COMPARISON: NoneFINDINGS:The vertebral bodies are normal in height and in normal alignment.No more than mild degenerative changes are present. COMP. METABOLIC PANEL ([id number]) 2018-11-18 16:08:00 Test Item Value Reference Range Interpretation Comme nts NA (test code = 8471864887) 142 mmol/L 135-145 K (test code = 0214014562) 4.3 mmol/L 3.5-5 CL (test code = 1783615897) 104 mmol/L 98-108 CO2 TOTAL (test code = 6467082341) 27 mmol/L 23-31 AGAP (test code = 4167036932) 2-16 BUN (test code = 7419575324) 11 mg/dL 7-23 GLUCOSE (test code = 0761939604) 149 mg/dL 70-110 H CREATININE (test code = 0.85 mg/dL 0.6-1.25 2536441239) TOTAL BILI (test code = 0.5 mg/dL 0.1-1.9 0827681954) CALCIUM (test code = 3605953412) 9.5 mg/dL 8.6-10.6 T PROTEIN (test code = 1882214466) 7.8 g/dL 6.3-8.2 ALBUMIN (test code = 5963528079) 4.4 g/dL 3.5-5 ALK PHOS (test code = 0900110668) 50 U/L 34-122 ALT(SGPT) (test code = 6477245748) 52 U/L 9-51 H AST(SGOT) (test code = 8275706717) 49 U/L 13-40 H eGFR Calculation (Non- mL/min/1.73m2 Slov[place]) (test code = 4853471131) eGFR Calculation ( mL/min/1.73m2 [place]) (test code = 9599365250) IVETH (test code = IVETH) Association of [...] tests). Lab Interpretation (test code = Abnormal 40114-3) [facility]. METABOLIC PANEL ([id number])2018-11-18 16:08:00 Test Item Value Reference Range Interpretation Comments NA (test code = 142 mmol/L 135-145 4577681977) K (test code = 4.3 mmol/L 3.5-5 8770211013) CL (test code = 104 mmol/L 98-108 0765535088) CO2 TOTAL (test code = 27 mmol/L 23-31 1244669525) AGAP (test code = 2-16 5442317998) BUN (test code = 11 mg/dL 7-23 4153389773) GLUCOSE (test code = 149 mg/dL 70-110 H 6236299989) CREATININE (test code = 0.85 mg/dL 0.6-1.25 0175882942) TOTAL BILI (test code = 0.5 mg/dL 0.1-1.5 2873232310) CALCIUM (test code = 9.5 mg/dL 8.6-10.6 3396495978) T PROTEIN (test code = 7.8 g/dL 6.3-8.2 8879317244) ALBUMIN (test code = 4.4 g/dL 3.5-5 3364606381) ALK PHOS (test code = 50 U/L 34-122 0574754863) ALT(SGPT) (test code = 52 U/L 9-51 H 0350981446) AST(SGOT) (test code = 49 U/L 13-40 H 8237238382) eGFR Calculation mL/min/1.73m2 (Non-) (test code = 0700049568) eGFR Calculation mL/min/1.73m2 () (test code = 4150538384) IVETH (test code = IVETH) Association of [...] tests). Lab Interpretation Abnormal (test code = 46708-8) [facility]IC [facility] ([id number])2018-11-18 16:08:00 Test Item Value Reference Range Interpretation Comments NA (test code = 142 mmol/L 135-145 7007321020) K (test code = 4.3 mmol/L 3.5-5 3395261893) CL (test code = 104 mmol/L 98-108 9941305153) CO2 TOTAL (test code = 27 mmol/L 23-31 2153928431) AGAP (test code = 2-16 9240501209) BUN (test code = 11 mg/dL 7-23 2704678981) GLUCOSE (test code = 149 mg/dL 70-110 H 1723190885) CREATININE (test code = 0.85 mg/dL 0.6-1.25 7491924041) TOTAL BILI (test code = 0.5 mg/dL 0.1-1.1 6769570514) CALCIUM (test code = 9.5 mg/dL 8.6-10.6 5953958837) T PROTEIN (test code = 7.8 g/dL 6.3-8.2 9152504728) ALBUMIN (test code = 4.4 g/dL 3.5-5 3695675469) ALK PHOS (test code = 50 U/L 34-122 6040656042) ALT(SGPT) (test code = 52 U/L 9-51 H 2544579212) AST(SGOT) (test code = 49 U/L 13-40 H 6830251470) eGFR Calculation mL/min/1.73m2 (Non-) (test code = 3184273604) eGFR Calculation mL/min/1.73m2 () (test code = 4714369125) IVETH (test code = IVETH) Association of [...] tests). Lab Interpretation Abnormal (test code = 40235-5) [facility] WITH [id number] 15:47:00 Test Item Value Reference Range Interpretation Comments WBC (test code = See_Comment [Automated 2938-2) message] The sy stem which generated this result transmitted reference range : 4.20 - 10.70 10*3/?L. The reference range was not used to interpret this result as normal/abnormal . RBC (test code = See_Comment [Automated 603-8) message] The sy stem which generated this [...] RDW-SD (test code = 40.2 fL 38.5-51.6 83488-2) RDW-CV (test code = 11.9 % 12.1-15.4 L 788-0) PLT (test code = See_Comment [Automated 277-3) message] The sy stem which generated this result transmitted reference range : 150 - 328 10*3/ ?L. The reference r major was not used to interpret this result as normal/abnormal . MPV (test code = 9.9 fL 9.8-13 02353-5) NRBC/100 WBC (test See_Comment [Automat ed code = 8374181651) message] The system which generated this result transmitted reference range : 0.0 - 10.0 /100 WBCs. The refer ence range was not u sed to interpret th is result as normal/abnormal . NRBC x10^3 (test code <0.01 See_Comment [Auto mated = 7880850253) message] The s ystem which generated this result transmitted reference range : 10*3/?L. The reference range was not used to interpret this result as normal/abnormal . GRAN MAT (NEUT) % 52.4 % (test code = 770-8) IMM GRAN % (test code 0.20 % = 2477423902) LYMPH % (test code = 39.4 % 736-9) MONO % (test code = 6.1 % 5905-5) EOS % (test code = 1.4 % 713-8) BASO % (test code = 0.5 % 706-2) GRAN MAT x10^3(ANC) 3.11 10*3/uL 1.99-6.95 (test code = 2479357497) IMM GRAN x10^3 (test <0.03 0-0.06 code = 2004794743) LYMPH x10^3 (test code 2.33 10*3/uL 1.09-3.23 = 731-0) MONO x10^3 (test code 0.36 10*3/uL 0.36-1.02 = 742-7) EOS x10^3 (test code = 0.08 10*3/uL 0.06-0.53 711-2) BASO x10^3 (test code 0.03 10*3/uL 0.01-0.09 = 704-7) Lab Interpretation Abnormal (test code = 98918-4) [facility] WITH [id number] 15:47:00 Test Item Value Reference Range Interpretation [...] RDW-SD (test code = 40.2 fL 38.5-51.6 12141-6) RDW-CV (test code = 11.9 % 12.1-15.4 L 788-0) PLT (test code = See_Comment [Automated 777-3) message] The sy stem which generated this result transmitted reference range : 150 - 328 10*3/ ?L. The reference r major was not used to interpret this result as normal/abnormal . MPV (test code = 9.9 fL 9.8-13 75034-0) NRBC/100 WBC (test See_Comment [Automat ed code = 5033193345) message] The system which generated this result transmitted reference range : 0.0 - 10.0 /100 WBCs. The refer ence range was not u sed to interpret th is result as normal/abnormal . NRBC x10^3 (test code <0.01 See_Comment [Auto mated = 6091556820) message] The s ystem which generated this result transmitted reference range : 10*3/?L. The reference range was not used to interpret this result as normal/abnormal . GRAN MAT (NEUT) % 52.4 % (test code = 770-8) IMM GRAN % (test code 0.20 % = 4637299038) LYMPH % (test code = 39.4 % 736-9) MONO % (test code = 6.1 % 5905-5) EOS % (test code = 1.4 % 713-8) BASO % (test code = 0.5 % 706-2) GRAN MAT x10^3(ANC) 3.11 10*3/uL 1.99-6.95 (test code = 8174809793) IMM GRAN x10^3 (test <0.03 0-0.06 code = 9019533726) LYMPH x10^3 (test code 2.33 10*3/uL 1.09-3.23 = 731-0) MONO x10^3 (test code 0.36 10*3/uL 0.36-1.02 = 742-7) EOS x10^3 (test code = 0.08 10*3/uL 0.06-0.53 711-2) BASO x10^3 (test code 0.03 10*3/uL 0.01-0.09 = 704-7) Lab Interpretation Abnormal (test code = 56685-8) [facility] WITH [id number] 15:47:00 Test Item Value Reference Range Interpretation Comments WBC (test code = See_Comment [Automated 1690-2) message] The sy stem which generated this result transmitted reference range : 4.20 - 10.70 10*3/?L. The reference range was not used to interpret this result as normal/abnormal . RBC (test code = See_Comment [Automated 509-8) message] The sy stem which generated this [...] RDW-SD (test code = 40.2 fL 38.5-51.6 91407-2) RDW-CV (test code = 11.9 % 12.1-15.4 L 788-0) PLT (test code = See_Comment [Automated 777-3) message] The sy stem which generated this result transmitted reference range : 150 - 328 10*3/ ?L. The reference r major was not used to interpret this result as normal/abnormal . MPV (test code = 9.9 fL 9.8-13 65816-5) NRBC/100 WBC (test See_Comment [Automat ed code = 6380817624) message] The system which generated this result transmitted reference range : 0.0 - 10.0 /100 WBCs. The refer ence range was not u sed to interpret th is result as normal/abnormal . NRBC x10^3 (test code <0.01 See_Comment [Auto mated = 2396042964) message] The s ystem which generated this result transmitted reference range : 10*3/?L. The reference range was not used to interpret this result as normal/abnormal . GRAN MAT (NEUT) % 52.4 % (test code = 770-8) IMM GRAN % (test code 0.20 % = 6153192595) LYMPH % (test code = 39.4 % 736-9) MONO % (test code = 6.1 % 5905-5) EOS % (test code = 1.4 % 713-8) BASO % (test code = 0.5 % 706-2) GRAN MAT x10^3(ANC) 3.11 10*3/uL 1.99-6.95 (test code = 6183264479) IMM GRAN x10^3 (test <0.03 0-0.06 code = 6638199548) LYMPH x10^3 (test code 2.33 10*3/uL 1.09-3.23 = 731-0) MONO x10^3 (test code 0.36 10*3/uL 0.36-1.02 = 742-7) EOS x10^3 (test code = 0.08 10*3/uL 0.06-0.53 711-2) BASO x10^3 (test code 0.03 10*3/uL 0.01-0.09 = 704-7) Lab Interpretation Abnormal (test code = 14446-9) [facility] WITH [id number] 15:47:00 Test Item Value Reference Range Interpretation [...] RDW-SD (test code = 40.2 fL 38.5-51.6 13029-8) RDW-CV (test code = 11.9 % 12.1-15.4 L 788-0) PLT (test code = See_Comment [Automated 777-3) message] The sy stem which generated this result transmitted reference range : 150 - 328 10*3/ ?L. The reference r major was not used to interpret this result as normal/abnormal . MPV (test code = 9.9 fL 9.8-13 71961-6) NRBC/100 WBC (test See_Comment [Automat ed code = 4956176731) message] The system which generated this result transmitted reference range : 0.0 - 10.0 /100 WBCs. The refer ence range was not u sed to interpret th is result as normal/abnormal . NRBC x10^3 (test code <0.01 See_Comment [Auto mated = 5882964922) message] The s ystem which generated this result transmitted reference range : 10*3/?L. The reference range was not used to interpret this result as normal/abnormal . GRAN MAT (NEUT) % 52.4 % (test code = 770-8) IMM GRAN % (test code 0.20 % = 5631935112) LYMPH % (test code = 39.4 % 736-9) MONO % (test code = 6.1 % 5905-5) EOS % (test code = 1.4 % 713-8) BASO % (test code = 0.5 % 706-2) GRAN MAT x10^3(ANC) 3.11 10*3/uL 1.99-6.95 (test code = 2047804344) IMM GRAN x10^3 (test <0.03 0-0.06 code = 7777279202) LYMPH x10^3 (test code 2.33 10*3/uL 1.09-3.23 = 731-0) MONO x10^3 (test code 0.36 10*3/uL 0.36-1.02 = 742-7) EOS x10^3 (test code = 0.08 10*3/uL 0.06-0.53 711-2) BASO x10^3 (test code 0.03 10*3/uL 0.01-0.09 = 704-7) Lab Interpretation Abnormal (test code = 29572-8) [facility] WITH [id number] 15:47:00 Test Item Value Reference Range Interpretation Comments WBC (test code = See_Comment [Automated 9887-2) message] The sy stem which generated this result transmitted reference range : 4.20 - 10.70 10*3/?L. The reference range was not used to interpret this result as normal/abnormal . RBC (test code = See_Comment [Automated 854-8) message] The sy stem which generated this [...] RDW-SD (test code = 40.2 fL 38.5-51.6 30367-9) RDW-CV (test code = 11.9 % 12.1-15.4 L 788-0) PLT (test code = See_Comment [Automated 777-3) message] The sy stem which generated this result transmitted reference range : 150 - 328 10*3/ ?L. The reference r major was not used to interpret this result as normal/abnormal . MPV (test code = 9.9 fL 9.8-13 00744-2) NRBC/100 WBC (test See_Comment [Automat ed code = 5661564974) message] The system which generated this result transmitted reference range : 0.0 - 10.0 /100 WBCs. The refer ence range was not u sed to interpret th is result as normal/abnormal . NRBC x10^3 (test code <0.01 See_Comment [Auto mated = 2900159541) message] The s ystem which generated this result transmitted reference range : 10*3/?L. The reference range was not used to interpret this result as normal/abnormal . GRAN MAT (NEUT) % 52.4 % (test code = 770-8) IMM GRAN % (test code 0.20 % = 7447386157) LYMPH % (test code = 39.4 % 736-9) MONO % (test code = 6.1 % 5905-5) EOS % (test code = 1.4 % 713-8) BASO % (test code = 0.5 % 706-2) GRAN MAT x10^3(ANC) 3.11 10*3/uL 1.99-6.95 (test code = 7190749562) IMM GRAN x10^3 (test <0.03 0-0.06 code = 6738555906) LYMPH x10^3 (test code 2.33 10*3/uL 1.09-3.23 = 731-0) MONO x10^3 (test code 0.36 10*3/uL 0.36-1.02 = 742-7) EOS x10^3 (test code = 0.08 10*3/uL 0.06-0.53 711-2) BASO x10^3 (test code 0.03 10*3/uL 0.01-0.09 = 704-7) Lab Interpretation Abnormal (test code = 99888-9) [facility]"
--- NOTE | 2022-08-23 19:41 | EDPHYS ---
Physician Documentation [facility] Name: Marvin Chow Age: 47 yrs Sex: Male : 1975 Arrival Date: 08/23/2022 Time: 17:56 Bed IW10 Private MD: ED Physician Willem Roldan HPI: 08/23 19:01 This 47 yrs old Male presents to ER via Ambulatory with complaints of Knee bs3 swelling. 19:01 47-year-old male history of hypertension prolonged QT mitral valve prolapse seen this bs3 past weekend for infrapatellar bursitis placed on Bactrim and doxycycline presents with increased pain swelling of his leg he notes associated fevers and chills he is taking his antibiotics but they are not working he denies anything is bothering him denies chest pain shortness of breath. Historical: - Allergies: 18:04 No Known Allergies; mb9 - PMHx: 18:04 heart flutter; Hypertension; mitro valve prolapse; Prolonged QT wave; mb9 - PSHx: 18:04 Coronary Angioplasty; mb9 - Immunization history:: Adult Immunizations up to date. - Social history:: Smoking status: Patient denies any tobacco usage or history of. ROS: 19:01 Constitutional: Positive for fever bs3 19:01 All other systems are negative. Exam: 19:01 Constitutional: This is a well developed, well nourished patient who is awake, alert, bs3 and in no acute distress. Head/Face: Normocephalic, atraumatic. Eyes: Pupils equal round and reactive to light, extra-ocular motions intact. Lids and lashes normal. ENT: mmm, no posterior phyarngeal erythema Neck: Trachea midline, no thyromegaly, no neck stiffness Chest/axilla: Normal chest wall appearance and motion. Nontender with no deformity. No lesions are appreciated. Cardiovascular: Tachycardic, no murmur Respiratory: Lungs have equal breath sounds bilaterally, clear to auscultation, no respiratory distress Abdomen/GI: Soft, non-tender, no rebound or guarding Skin: Warm, dry with normal turgor. Normal color with no rashes, no lesions, and no evidence of cellulitis. MS/ Extremity: She has a infrapatellar swollen bursa but then has diffuse swelling and redness and pain to palpation of his right lower extremity from the knee down to his ankle he has pitting edema Neuro: Awake and alert, GCS 15, oriented to person, place, time, and situation. Cranial nerves II-XII grossly intact. Motor strength 5/5 in all extremities. Sensory grossly intact. Vital Signs: 18:01 BP 172 / 110; Pulse 98; Resp 18; Temp 101.8(O); Pulse Ox 96% ; Weight 95.25 kg; Height mb9 5 ft. 10 in. ; Pain 10/10; 18:01 Body Mass Index 30.13 (95.25 kg, 177.8 cm) mb9 18:01 Pain Scale: Adult mb9 MDM: 18:03 Patient medically screened. bs3 19:01 Differential diagnosis: Patient with septic bursitis likely complicated by a cellulitis bs3 will evaluate for sepsis given his fever and heart rate greater than 90 will start on antibiotics I reviewed the culture it was staph mixed possible skin bernard sensitive to what he was prescribed clearly that is not working we will start with Vanco and ceftriaxone and reassess. Data reviewed: vital signs, nurses notes. 19:39 ED course: Patient left after my initial assessment we had a long conversation bs3 regarding my concerns and the fact that he could become septic and that he could lose his leg and developed permanent disability he understood the risks and benefits that he needed to work I will try to come back tomorrow given his failure on those antibiotics we discussed an alternative and I called the patient back and he was agreeable to trying an alternative Will send clindamycin to the pharmacy for the patient. 08/23 18:15 Order name: Accucheck [facility] 08/23 18:15 Order name: Cardiac monitoring [facility] 08/23 18:15 Order name: EKG - Nurse/Tech [facility] 08/23 18:15 Order name: IV Saline Lock - Large Bore [facility] 08/23 18:15 Order name: Labs collected and sent [facility] 08/23 18:15 Order name: O2 Per Protocol [facility] 08/23 18:15 Order name: O2 Sat Monitoring [facility] 08/23 18:15 Order name: Vital Signs 3 Administered Medications: No medications were administered Disposition Summary: 08/23/22 19:41 Discharge Ordered Location: Home bs3 Condition: Serious bs3 Diagnosis - Other bursitis of knee, left knee bs3 - Other bursitis of knee, right knee bs3 - Cellulitis of right lower limb bs3 Followup: bs3 - With: Emergency Department - When: Upon discharge from the Emergency Department - Reason: Forms: - Medication Reconciliation Form bs3 - Thank You Letter bs3 - Antibiotic Education bs3 - Prescription Opioid Use bs3 Signatures: Dispatcher [employer] Willem Marin MD MD bs3 Sherley Tinajero RN RN mb9
--- NOTE | 2022-08-23 19:41 | ER ---
Nurse's Notes [facility] Name: Marvin Chow Age: 47 yrs Sex: Male : 1975 Arrival Date: 08/23/2022 Time: 17:56 Bed IW10 Private MD: Diagnosis: Other bursitis of knee, left knee;Other bursitis of knee, right knee;Cellulitis of right lower limb Presentation: 08/23 18:01 Chief complaint: Patient states: "My right knee and leg is swollen. I was here Sunday mb9 to get it drained but it hasn't helped. Its gotten worse and I'm still running a high fever". Coronavirus screen: Vaccine status: Patient reports being unvaccinated. Ebola Screen: No symptoms or risks identified at this time. Initial Sepsis Screen: Does the patient meet any 2 criteria? No. Patient's initial sepsis screen is negative. Does the patient have a suspected source of infection? No. Patient's initial sepsis screen is negative. Risk Assessment: Do you want to hurt yourself or someone else? Patient reports no desire to harm self or others. Onset of symptoms was August 23, 2022. 18:01 Method Of Arrival: Ambulatory mb9 18:01 Acuity: GERARDO 3 mb9 Historical: - Allergies: 18:04 No Known Allergies; mb9 - PMHx: 18:04 heart flutter; Hypertension; mitro valve prolapse; Prolonged QT wave; mb9 - PSHx: 18:04 Coronary Angioplasty; mb9 - Immunization history:: Adult Immunizations up to date. - Social history:: Smoking status: Patient denies any tobacco usage or history of. Assessment: 19:26 Reassessment: Attempted to call pts phone number listed in chart. No response. mb9 19:36 General: called pt cell phone. Dr. Roldan will prescribe new antibiotic . as6 19:48 General: pt left without receiving discharge instructions . as6 Vital Signs: 18:01 BP 172 / 110; Pulse 98; Resp 18; Temp 101.8(O); Pulse Ox 96% ; Weight 95.25 kg; Height mb9 5 ft. 10 in. ; Pain 10/10; 18:01 Body Mass Index 30.13 (95.25 kg, 177.8 cm) mb9 18:01 Pain Scale: Adult mb9 ED Course: 17:59 Patient arrived in ED. mr 18:03 Willem Roldan MD is Attending Physician. bs3 18:04 Triage completed. mb9 18:04 Arm band placed on. mb9 19:00 Patient's name was called from ER [facility]abel. No response. Unable to locate patient. Will mb9 disposition as left without being seen by a provider. Administered Medications: No medications were administered Outcome: 19:41 Discharge ordered by . bs3 19:48 Patient left the ED. as6 Signatures: Sherley Gant Ashby, RN RN as6 Willem Roldan MD MD bs3 Sherley Tinajero RN RN mb9
[2022-08-23 20:37] VITALS: BP 172/110; TEMP 101.8; O2SAT 96
== END 2022-08-23 19:48 | disposition home or self-care (01) ==
LOC: ER 17:56
DX: M71.562 Other bursitis, not elsewhere classified, left knee (principal); M71.561 Other bursitis, not elsewhere classified, right knee; L03.115 Cellulitis of right lower limb
CPT/HCPCS: 99281

== ENCOUNTER 2024-11-15 17:08 | Inpatient (IN) | payer OTHER, SELFPAY ==
--- OUTSIDE RECORDS SUMMARY | 2024-11-15 17:15 | XMS REPORT | Continuity of Care Document ---
Author Name Unknown Address [address] [place] [address] [facility] Address [address] [place] [address] Care Team Providers Care Social Welfare Administrator Name Role Phone PCP, PATIENT DOES NOT HAVE A Primary Care Physic yesica Unavailable Doctor Unassigned, [place] Attending Clinician U CORY Michel Attending Clinician Unavailable TONY BRINK Attending Clinician Unavailable AMY SKY Attending Clinician Unavailab juan antonio QUILES MD Attending Clinician Unavailab juan antonio [facility] Attending Clinician Unavailabl cherelle LAB90 Attending Clinician Unavailable [facility] Unavailable Keyla Aviles MD Attending Clinician + [facility] Attending Clinician Unavailable KEYLA AVILES Attending Clinician Unavailable Kimi Ugarte Attending Clinician + QUENTIN PELAEZ Attending Clinician Unavailable Doctor Unassigned, [place] Attending Clinician U Priscilla Mitchell LCSW Attending Clinician [phone] KIMI ZAFAR Attending Clinician Unavailable Jane Lee LMSW Attending Clinician UnaSHELBI Jones Attending Clinician Unavailab SHELBI Taylor Attending Clinician Unavailab Nemesio Fragoso MD Attending Clinician [phone] FREYA GOMEZ Attending Clinician SELENA Askew Attending Clinician Joanna Ugarte MD, Selena Wolfe Attending Clinician + [phone] Tk Vernon Dario Attending Clinician [phone] Leonela Baker Attending Clinician [phone] Mandeep Rivera MD Attending Clinician [phone] Xavi Serrano MD Attending Clinician [phone] Surgery, Tdc General Attending Clinician FREYA Rico Admitting Clinician SELENA Askew Admitting Clinician Mandeep Thomas MD Admitting Clinician [phone] Payers Payer Name Policy Type Policy Number Effective Date Expirati on Date Source [employer] MP [employer] [employer] 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 [id number] 2023 00:00:00 Problems Condition Name Condition Details Condition Category Status Onset Date Resolution Date Last Treatment Date Treating Clinician Comments Source Primary hypertensi on Primary hypertensi on Disease Active 2023-03 0-24 00:00: 00 Stefany Sejames - Externa l Primary localized osteoarthr osis of right hip Primary localized osteoarthr osis of right hip Disease Active 05-30 00:00: 00 [facility] Chronic hepatitis C without hepatic coma Chronic hepatitis C without hepatic coma Disease Active 05-30 00:00: 00 [facility] Polyarticu lar RF positive BYRON (juvenile idiopathic arthritis) Polyarticu lar RF positive BYRON (juvenile idiopathic arthritis) Disease Active 05-30 00:00: 00 [facility] Rheumatoid arthritis involving both shoulders, unspecifie d whether rheumatoid factor present Rheumatoid arthritis involving both shoulders, unspecifie d whether rheumatoid factor present Disease Active 05-30 00:00: 00 [facility] Splenomega ly Splenomega ly Disease Active 05-30 00:00: 00 [facility] Hypertensi ve urgency Hypertensi ve urgency Disease Active 05-30 00:00: 00 [facility] Abnormal liver enzymes Abnormal liver enzymes Disease Active 05-30 00:00: 00 [facility] Does not have health insurance Does not have health insurance Disease Active 05-30 00:00: 00 [facility] Uncontroll ed hypertensi on Uncontroll ed hypertensi on Disease Active 2022-03 00:00: 00 [facility] Class 1 obesity due to excess calories with serious comorbidit y and body mass index (BMI) of 31.0 to 31.9 in adult Class 1 obesity due to excess calories with serious comorbidit y and body mass index (BMI) of 31.0 to 31.9 in adult Disease Active 2022-03 00:00: 00 [facility] Colon cancer screening Colon cancer screening Disease Active 2022-03 00:00: 00 [facility] Hyperglyce ewelina Hyperglyce ewelina Disease Active 2022-03 00:00: 00 [facility] Incarcerat ed right inguinal hernia Incarcerat ed right inguinal hernia Disease Active 11-21 00:00: 00 Overview: Formattin g of this note might be different from the original. Added automatic ally from request for surgery [id number] [facility] Right inguinal hernia Right inguinal hernia Disease Active 10-06 00:00: 00 [facility] No known active problems No known active problems Disease [facility] Allergies, Adverse Reactions, Alerts Allergy Name Allergy Type Status Severity Reaction(s) Onset Date Inactive Date Treating Clinician Comments Source Amlodipi ne Propensi ty to adverse reaction s Active Swelling 10-23 00:00: 00 [facility] NO KNOWN ALLERGIE S Drug Class Active [facility] Social History Social Habit Start Date Stop Date Quantity Comments Source Exposure to SARS-CoV-2 (event) Not sure [facility] History of tobacco use Cigarette Smoker [facility] Sexual orientation Jaki Edwards - External Tobacco use and exposure 2024-01-17 00:00:00 2024-01-17 00:00:00 Smokeless tobacco non-user Stefany Edwards - External History of Social function 2024-01-17 00:00:00 2024-01-17 00:00:00 Stefany Richey Sex 2023-08-01 22:00:08 2023-08-01 22:00:08 Male (finding) Stefany Richey Alcohol intake 2023-05-31 00:00:00 2023-05-31 00:00:00 Current non-drinker of alcohol (finding) [facility] Alcoholic beverage intake 2023-05-31 00:00:00 2023-05-31 00:00:00 Current non-drinker of alcohol (finding) [facility] Tobacco Comment 2016-10-06 00:00:00 2016-10-06 00:00:00 quit 10 yrs ago [facility] Alcohol Comment 2016-10-06 00:00:00 2016-10-06 00:00:00 quit 7 yrs ago [facility] Sex assigned at 1975 00:00:00 1975 00:00:00 Stefany james Richey Smoking Status Start Date Stop Date Source Tobacco smoking consumption unknown [facility] Never smoked tobacco Stefany Abditejalmarilyn Richey Former smoker 2018-12-04 00:00:00 2018-12-04 00:00:00 [facility] Medications Ordered Medication Name Filled Medication Name Start Date Stop Date Current Medication? Ordering Clinician Indication Dosage Frequency Signature (SIG) Comments Components Source Amlodipine Besylate 10 MG oral Tablet 2023-03 00:00: 00 Yes [id number] 10mg QD Take 1 tablet (10 mg total) by mouth daily. Stefany mack Carvedilol 12.5 MG oral Tablet 2023-03 00:00: 00 Yes [id number] 12.5mg QD Take 1 tablet (12.5 mg total) by mouth daily. Stefany mack Clonidine HCl (CATAPRES) 0.1 MG oral Tablet 2023-03 00:00: 00 Yes [id number] .1mg Q.5D Take 1 tablet (0.1 mg total) by mouth 2 times daily as needed. Stefany mack Carvedilol 12.5 MG oral Tablet 7-15 00:00: 00 2024- 10-24 00:00 :00 No 12.5mg Take 1 tablet (12.5 mg total) by mouth. Stefany mack Amlodipine Besylate 10 MG oral Tablet 15 00:00: 00 01-16 00:00 :00 No 10mg QD Take 1 tablet (10 mg total) by mouth daily. Stefany mack AMLODIPINE 10 mg tablet -10 00:00: 00 10-07 00:00 :00 No [id number] 10mg TAKE 1 TABLET BY MOUTH IN THE MORNING [facility] CARVEDILOL 12.5 mg tablet 6-10 00:00: 00 10-07 00:00 :00 No [id number] TAKE 1 TABLET BY MOUTH IN THE MORNING AND 1 BY MOUTH IN THE EVENING WITH MEALS [facility] AMLODIPINE 10 mg tablet 08-05 00:00: 00 Yes [id number] 10mg TAKE 1 TABLET BY MOUTH IN THE MORNING [facility] CARVEDILOL 12.5 mg tablet 08-05 00:00: 00 Yes [id number] TAKE 1 TABLET BY MOUTH IN THE MORNING AND 1 IN THE EVENING WITH MEALS [facility] amLODIPine (NORVASC) 10 mg tablet 05 00:00: 00 08-05 00:00 :00 No [id number] 10mg Take 1 tablet by mouth in the morning. [facility] carvediloL (COREG) 12.5 mg tablet -05 00:00: 00 08-05 00:00 :00 No [id number] 12.5mg Take 1 tablet by mouth in the morning and 1 tablet in the evening. Take with meals. [facility] cloNIDine (CATAPRES) tablet 0.2 mg 05-30 23:30: 00 05-30 22:46 :00 No [id number] .2mg [facility] Diclofenac Sodium (VOLTAREN) 1 % gel - 00:00: 00 Yes [id number] Apply to area(s) 4 (four) times daily. Apply 4 g qid [facility] lidocaine 5 % ointment 05-30 00:00: 00 Yes [id number] Apply 2g to affected areas BID PRN [facility] tiZANidine 2 mg tablet 05-30 00:00: 00 Yes [id number] 2mg Take 1 tablet by mouth every 8 (eight) hours as needed (muscle spasms). [facility] sofosbuvir- velpatasvir (EPCLUSA) 400-100 mg 05-30 00:00: 00 Yes [id number] 1{tbl} Take 1 tablet by mouth in the morning. [facility] hydroCHLORO thiazide 25 MG oral Tablet 05-30 00:00: 00 Yes 25mg QD Take 1 tablet (25 mg total) by mouth daily. Stefany mack Lisinopril 40 MG oral Tablet 05-30 00:00: 00 Yes 40mg QD Take 1 tablet (40 mg total) by mouth daily. Stefany mack Gabapentin 100 MG oral Capsule 05-30 00:00: 00 Yes 100mg Q.[id number] 3D Take 1 capsule (100 mg total) by mouth 3 times daily. Stefany mack Clonidine HCl (CATAPRES) 0.1 MG oral Tablet 05-30 00:00: 00 01-16 00:00 :00 No .1mg Q.5D Take 1 tablet (0.1 mg total) by mouth 2 times daily as needed. Stefany mack carvediloL (COREG) 6.25 mg tablet 05-30 00:00: 00 06-28 00:00 :00 No [id number] 6.25mg Take 1 tablet by mouth in the morning and 1 tablet in the evening. Take with meals. [facility] amLODIPine (NORVASC) 5 mg tablet 05-30 00:00: 00 06-28 00:00 :00 No [id number] 5mg Take 1 tablet by mouth in the morning. [facility] carvediloL (COREG) 6.25 mg tablet 04-05 00:00: 00 05-30 00:00 :00 No [id number] 6.25mg Take 1 tablet by mouth in the morning and 1 tablet in the evening. Take with meals. [facility] hydroCHLORO thiazide 25 mg tablet 04-05 00:00: 00 05-30 00:00 :00 No [id number] 25mg Take 1 tablet by mouth in the morning. [facility] lisinopriL 40 mg tablet 04-05 00:00: 00 05-30 00:00 :00 No [id number] 40mg Take 1 tablet by mouth in the morning. [facility] cloNIDine 0.1 mg tablet 04-05 00:00: 00 05-30 00:00 :00 No [id number] .1mg Take 1 tablet by mouth 2 (two) times daily as needed for Other (For systolic BP greater than 180 mmhg). [facility] lisinopriL 20 mg tablet 2022-03 00:00: 00 04-05 00:00 :00 No [id number] 20mg Take 1 tablet by mouth in the morning. Take 1 tab daily and if BP if >140/90 , change to 2 tabs daily after 3 days [facility] carvediloL (COREG) 3.125 mg tablet 2022-03 00:00: 00 04-05 00:00 :00 No [id number] 3.125mg Take 1 tablet by mouth in the morning and 1 tablet in the evening. Take with meals. [facility] hydroCHLORO thiazide 12.5 mg capsule 2022-03 00:00: 00 04-05 00:00 :00 No [id number] 12.5mg Take 1 capsule by mouth in the morning. [facility] cloNIDine 0.1 mg tablet 2022-03 00:00: 00 04-05 00:00 :00 No [id number] .1mg Take 1 tablet by mouth 2 (two) times daily as needed for Other (For systolic BP greater than 180 mmhg). [facility] labetaloL (NORMODYNE) injection 10 mg 2022-03 18:45: 00 01-23 19:09 :00 No 10mg 10 mg, Slow IV Push, ONCE, 1 dose, On Sun01/23/23 at 1345, Routine [facility] labetaloL (NORMODYNE) injection 10 mg 2022-03 17:45: 00 01-23 17:14 :00 No 10mg 10 mg, Slow IV Push, ONCE, 1 dose, On Sun01/23/23 at 1245, Routine [facility] cloNIDine 0.1 mg tablet 2022-03 00:00: 00 02-19 00:00 :00 No [id number] .1mg Take 1 tablet by mouth 2 (two) times daily as needed for Other (For systolic BP greater than 180 mmhg). [facility] atenoloL 100 mg tablet 2022-03 00:00: 00 02-19 00:00 :00 No [id number] 50mg Take 0.5 tablets by mouth in the morning. [facility] lisinopriL 10 mg tablet 2022-03 00:00: 00 02-19 00:00 :00 No [id number] 10mg Take 1 tablet by mouth in the morning. [facility] lisinopriL 10 mg tablet 2022-03 00:00: 00 01-23 00:00 :00 No [id number] 20mg Take 2 tablets by mouth in the morning. [facility] atenoloL 100 mg tablet 2022-03 00:00: 00 01-23 00:00 :00 No [id number] 100mg Take 1 tablet by mouth in the morning. [facility] No known medications 05-23 09:43: 54 No [facility] carvediloL 12.5 mg tablet 05-23 00:00: 00 02-19 00:00 :00 No [id number] 12.5mg Take 1 tablet by mouth 2 (two) times daily with meals. [facility] RANITIDINE HCL ORAL 12-04 03:40: 04 12-03 00:00 :00 No Take by mouth as needed. [facility] acetaminoph en-codeine (TYLENOL #3) 300-30 mg tablet 1 tablet 12-04 02:36: 42 Yes 1{tbl} 1 tablet, Oral, Q6HPRN, Starting Sun12/03/18 at 2136, Until Discontinu ed, Routine, Pain (scale 4-6), Pain (scale 7-10) [facility] acetaminoph en-codeine (TYLENOL #3) 300-30 mg tablet 1 tablet 12-03 18:03: 16 12-03 18:31 :00 No 1{tbl} 1 tablet, Oral, PRN, 1 dose, Starting Sun12/03/18 at 1303, Until Sun12/03/18 at 1331, Routine, Pain (scale 7-10), D[facility] Recovery [facility] lidocaine 2% (XYLOCAINE) 20 mg/mL (2 %) injection 12-03 16:25: 00 12-03 23:18 :48 No ONCE INTRA PROCEDURE, Starting Sun12/03/18 at 1125, Until Sun12/03/18 at 1818, Routine, Intra-op [facility] bupivacaine (preserv free) 0.5% (SENSORCAIN E MPF) 0.5 % (5 mg/mL) injection 12-03 16:25: 00 12-03 23:18 :43 No ONCE INTRA PROCEDURE, Starting Sun12/03/18 at 1125, Until Sun12/03/18 at 1818, Routine, Intra-op [facility] FENTanyl PF (SUBLIMAZE (PF)) injection 25 mcg 12-03 15:42: 05 12-03 16:10 :00 No 25ug 25 mcg, Slow IV Push, Q5MIN PRN, 4 doses, Starting Sun12/03/18 at 1042, Until Sun12/03/18 at 1110, Routine, Pain (scale 7-10), PACU [facility] sugammadex (BRIDION) injection 12-03 15:35: 00 12-03 16:00 :50 No ONCE INTRA PROCEDURE, Starting 12/03/18 at 1035, Until 12/03/18 at 1100, Routine, [facility]op [facility] acetaminoph en ADULT (OFIRMEV) injection 12-03 15:15: 00 12-03 16:00 :50 No IV Infusion, Administer over 15 Minutes, ONCE INTRA PROCEDURE, Starting 12/03/18 at 1015, Until 12/03/18 at 1100, Routine, Intra-op [facility] dexMEDEtomi dine (PRECEDEX) 20 mcg in NaCl 0.9% (NS) piggyback 12-03 15:03: 00 12-03 16:00 :50 No CONTINUOUS PRN, Starting 12/03/18 at 1003, Until 12/03/18 at 1100, 50 mL, Intra-op [facility] ceFAZolin (ANCEF) injection 12-03 14:55: 00 12-03 16:00 :50 No ONCE INTRA PROCEDURE, Starting 12/03/18 at 0955, Until 12/03/18 at 1100, NEENA, Intra-op [facility] rocuronium (ZEMURON) injection 12-03 14:52: 00 12-03 16:00 :50 No ONCE INTRA PROCEDURE, Starting 12/03/18 at 0952, Until 12/03/18 at 1100, Routine, [facility] FENT[facility] (SUBLIMAZE (PF)) injection 12-03 14:52: 00 12-03 16:00 :50 No Slow IV Push, ONCE INTRA PROCEDURE, Starting 12/03/18 at 0952, Until 12/03/18 at 1100, Routine, [facility] lidocaine 1% (XYLOCAINE) 100 mg/10 mL (1 %) injection 12-03 14:52: 00 12-03 16:00 :50 No Slow IV Push, ONCE INTRA PROCEDURE, Starting 12/03/18 at 0952, Until Sun12/03/18 at 1100, Routine, Intra-op [facility] propofol injection 12-03 14:52: 00 12-03 16:00 :50 No Slow IV Push, ONCE INTRA PROCEDURE, Starting Sun12/03/18 at 0952, Until Sun12/03/18 at 1100, Routine, Intra-op [facility] lactated ringers IV infusion 12-03 14:40: 00 12-03 16:00 :50 No IV Infusion, CONTINUOUS PRN, Starting Sun12/03/18 at 0940, Until Sun12/03/18 at 1100, Routine, Intra-op [facility] acetaminoph en-codeine 300-30 mg tablet 12-03 00:00: 00 12-11 04:59 :00 No [id number] 1{tbl} Take 1 tablet by mouth every 6 (six) hours as needed for Pain (scale 4-6) or Pain (scale 7-10) for up to 7 days. [facility] RANITIDINE HCL ORAL 12-02 15:59: 05 Yes Take by mouth as needed. [facility] RANITIDINE HCL ORAL 11-19 00:09: 05 Yes Take by mouth as needed. [facility] RANITIDINE HCL ORAL 11-18 14:29: 41 Yes Take by mouth as needed. [facility] hydroCHLORO thiazide 25 mg tablet 2016-03 00:00: 00 Yes 25mg Take 1 tablet by mouth daily. [facility] lisinopril 40 mg tablet 2016-03 00:00: 00 Yes 40mg Take 1 tablet by mouth daily. [facility] terazosin 1 mg capsule 2016-03 00:00: 00 Yes 1mg Take 1 capsule by mouth at bedtime. [facility] atenolol 50 mg tablet 2016-03 00:00: 00 12-03 00:00 :00 No 50mg Take 1 tablet by mouth 2 (two) times daily. [facility] cloniDINE 0.2 mg tablet 2016-03 00:00: 00 12-03 00:00 :00 No .2mg Take 1 tablet by mouth 2 (two) times daily. [facility] No known medications No Un manolo ity [facility] No known medications No Un manolo ity [facility] No known medications No Un manolo ity [facility] No known medications No Un manolo ity [facility] Vital Signs Vital Name Observation Time Observation Value Comments S ource Systolic blood pressure 2024-01-17 16:05:00 158 mm[Hg] Stefany ybold - External Diastolic blood pressure 2024-01-17 16:05:00 88 mm[Hg] Stefany Seybold - External Heart rate 2024-01-17 15:59:00 87 /min Stefany Abdiybold - External Body temperature 2024-01-17 15:59:00 36.78 Nahomi Setfany Crowderold - External Respiratory rate 2024-01-17 15:59:00 18 /min Stefany Seybold - External Body height 2024-01-17 15:59:00 177.8 cm Stefany Edwards - External Body weight 2024-01-17 15:59:00 90.266 kg Stefany Abdiybold - External BMI 2024-01-17 15:59:00 28.55 kg/m2 Stefany Edwards - External Oxygen saturation in Arterial blood by Pulse oximetry 2024-01-17 15:59:00 100 /min Stefany Edwards - External Systolic blood pressure 2023-05-31 22:51:00 186 mm[Hg] [facility] Diastolic blood pressure 2023-05-31 22:51:00 121 mm[Hg] [facility] Heart rate 2023-05-31 21:20:00 70 /min [facility] Body temperature 2023-05-31 21:20:00 36.67 Nahomi [facility] Respiratory rate 2023-05-31 21:20:00 17 /min [facility] Body height 2023-05-31 21:20:00 177.8 cm [facility] Body weight 2023-05-31 21:20:00 98.431 kg [facility] BMI 2023-05-31 21:20:00 31.14 kg/m2 [facility] Oxygen saturation in Arterial blood by Pulse oximetry 2023-05-31 21:20:00 98 /min [facility] Systolic blood pressure 2023-04-05 21:33:00 155 mm[Hg] [facility] Diastolic blood pressure 2023-04-05 21:33:00 111 mm[Hg] [facility] Heart rate 2023-04-05 21:33:00 80 /min [facility] Body temperature 2023-04-05 21:29:00 36.78 Nahomi [facility] Respiratory rate 2023-04-05 21:29:00 16 /min [facility] Body weight 2023-04-05 21:29:00 99.066 kg [facility] BMI 2023-04-05 21:29:00 31.34 kg/m2 [facility] Oxygen saturation in Arterial blood by Pulse oximetry 2023-04-05 21:29:00 94 /min [facility] Systolic blood pressure 2023-02-19 21:34:00 188 mm[Hg] [facility] Diastolic blood pressure 2023-02-19 21:34:00 109 mm[Hg] [facility] Heart rate 2023-02-19 21:26:00 67 /min [facility] Body temperature 2023-02-19 21:26:00 36.94 Nahomi [facility] Respiratory rate 2023-02-19 21:26:00 16 /min [facility] Body height 2023-02-19 21:26:00 177.8 cm [facility] Body weight 2023-02-19 21:26:00 98.158 kg [facility] BMI 2023-02-19 21:26:00 31.05 kg/m2 [facility] Oxygen saturation in Arterial blood by Pulse oximetry 2023-02-19 21:26:00 98 /min [facility] Systolic blood pressure 2023-01-23 19:15:00 193 mm[Hg] [facility] Diastolic blood pressure 2023-01-23 19:15:00 118 mm[Hg] [facility] Heart rate 2023-01-23 19:15:00 64 /min [facility] Respiratory rate 2023-01-23 19:15:00 18 /min [facility] Oxygen saturation in Arterial blood by Pulse oximetry 2023-01-23 19:15:00 97 /min [facility] Body temperature 2023-01-23 16:15:43 36.89 Nahomi [facility] Body height 2023-01-23 16:03:00 177.8 cm [facility] Body weight 2023-01-23 16:03:00 96.163 kg [facility] BMI 2023-01-23 16:03:00 30.42 kg/m2 [facility] Systolic blood pressure 2021-05-23 15:46:00 188 mm[Hg] [facility] Diastolic blood pressure 2021-05-23 15:46:00 133 mm[Hg] [facility] Heart rate 2021-05-23 15:46:00 99 /min [facility] Body height 2021-05-23 15:42:00 177.8 cm [facility] Body weight 2021-05-23 15:42:00 102.711 kg [facility] BMI 2021-05-23 15:42:00 32.49 kg/m2 [facility] Oxygen saturation in Arterial blood by Pulse oximetry 2021-05-23 15:42:00 97 /min [facility] Systolic blood pressure 2018-12-03 17:18:00 166 mm[Hg] notified nurse [facility] Diastolic blood pressure 2018-12-03 17:18:00 98 mm[Hg] notified nurse [facility] Heart rate 2018-12-03 17:18:00 61 /min [facility] Body temperature 2018-12-03 17:18:00 36.72 Nahomi [facility] Respiratory rate 2018-12-03 17:18:00 20 /min [facility] Oxygen saturation in Arterial blood by Pulse oximetry 2018-12-03 17:18:00 97 /min [facility] Body height 2018-12-02 17:50:00 177.8 cm [facility] Body weight 2018-12-02 17:50:00 92.08 kg [facility] BMI 2018-12-02 17:50:00 29.13 kg/m2 [facility] Systolic blood pressure 2018-11-18 14:59:00 189 mm[Hg] [facility] Diastolic blood pressure 2018-11-18 14:59:00 100 mm[Hg] [facility] Heart rate 2018-11-18 14:59:00 75 /min [facility] Body temperature 2018-11-18 14:59:00 36.56 Nahomi [facility] Body height 2018-11-18 14:59:00 177.8 cm [facility] Body weight 2018-11-18 14:59:00 91.627 kg [facility] BMI 2018-11-18 14:59:00 28.98 kg/m2 [facility] Oxygen saturation in Arterial blood by Pulse oximetry 2018-11-18 14:59:00 99 /min [facility] Procedures Procedure Date / Time Performed Performing Clinician Source SCANNED LAB RESULTS 2023-06-22 17:52:07 Doctor Carolina leon, [place] [facility] SCANNED LAB RESULTS 2023-06-22 17:52:05 Doctor U carolyn, [place] [facility] SCANNED LAB RESULTS 2023-06-20 15:10:21 Doctor U carolyn, [place] [facility] EXTERNAL PROVIDER RECORDS 2023-05-30 06:01:00 Doctor Unassigned, [place] [facility] ASSIGNMENT OF BENEFITS 2023-02-19 20:57:43 Docto r Unassigned, [place] [facility] CT HEAD WO CONTRAST 2023-01-23 16:47:00 Angela Gomez [facility] XR CHEST 2 VW 2023-01-23 16:44:42 Freya Gomez [facility] TROPONIN I 2023-01-23 16:34:00 [facility] COMP. METABOLIC PANEL (45522) 2023-01-23 16:34:00 Freya Gomez [facility] CBC WITH DIFF 2023-01-23 16:34:00 Freya Gomez [facility] N-TERMINAL PRO-BNP 2023-01-23 16:34:00 Greta Gomez [facility] CONSENT/REFUSAL FOR DIAGNOSIS AND TREATMENT 2023-01-23 15:53:58 Doctor Unassigned, [place] [facility] AUTHORIZATION FOR RELEASE OF PHI 2021-05-16 06:01:00 Doctor Unassigned, [place] [facility] XR CERVICAL SPINE 2 VW 2019-05-07 14:17:02 Caryn Vernon [facility] XR LUMBAR SPINE 2 VW 2019-04-23 14:14:26 Douglas Baker [facility] XR HIPS 2 VW RIGHT 2019-04-23 14:14:05 Cindy Baker rick [facility] XR SHOULDER 2+ VW LEFT 2019-04-23 14:13:45 Drew Baker [facility] EXTERNAL PROVIDER RECORDS 2018-12-11 05:01:00 Doctor Unassigned, [place] [facility] NERVE BLOCK 2018-12-03 23:15:50 [facility] 2018-12-03 15:12:23 Xavi Serrano [facility] CBC WITH DIFFERENTIAL 2018-11-18 15:33:00 Flash Coello [facility] COMP. METABOLIC PANEL (83243) 2018-11-18 15:33:00 Flash Coello [facility] Encounters Start Date/Time End Date/Time Encounter Type Admission Type Attending [facility] Care Facility Care Department Encounter ID Source 2023-06-20 00:00:00 2024-05-10 02:33:10 Orders Only Doctor Unassigned, [place] Doctor Unassigned, [place] [facility] 1.840.114 350.1.13.10 4.2.7.2.686 [id number] [facility] 2023-06-22 00:00:00 2024-05-10 02:32:10 Orders Only Doctor Unassigned, [place] Doctor Unassigned, [place] [facility] 1..840.114 350.1.13.10 4.2.7.2.686 [id number] [facility] 2023-06-22 00:00:00 2024-05-10 02:31:47 Orders Only Doctor Unassigned, [place] Doctor Unassigned, [place] [facility] 1.2.840.114 350.1.13.10 4.2.7.2.686 [id number] [facility] 2024-04-23 15:45:00 2024-04-23 15:45:00 Outpatient CORY ALONSO STEFANY JAIMES [id number] Stef[facility] 2024-04-16 00:00:00 2024-04-16 00:00:00 Outpatient TONY BRINK [id number] [facility] 2024-04-02 00:00:00 2024-04-02 00:00:00 Outpatient AMY SKY [id number] [facility] 2024-03-31 15:45:00 2024-03-31 15:45:00 Outpatient CORY ALONSO STEFANY JAIMES [id number] [facility] 2024-03-07 00:00:00 2024-03-07 00:00:00 Outpatient AMY SKY [id number] [facility] 2024-03-05 00:00:00 2024-03-05 00:00:00 Outpatient AMY SKY [id number] [facility] 2024-03-02 00:00:00 2024-03-02 00:00:00 Outpatient AMY SKY [id number] [facility] 2024-03-02 00:00:00 2024-03-02 00:00:00 Outpatient AMY SKY [id number] [facility] 2024-02-22 00:00:00 2024-02-22 00:00:00 Outpatient AMY SKY [id number] [facility] 2024-02-15 11:30:00 2024-02-15 11:30:00 Outpatient AMY SKYSEY STEFANY [id number] [facility] 2024-01-30 00:00:00 2024-01-30 00:00:00 Outpatient MD STEFANY GOOD [id number] [facility] 2024-01-25 00:00:00 2024-01-25 00:00:00 Outpatient AMY SKY STEFANY JAIMES [id number] [facility] 2024-01-25 00:00:00 2024-01-25 00:00:00 Outpatient MD STEFANY GOOD [id number] [facility] 2024-01-24 12:30:00 2024-01-24 12:30:00 Outpatient BARBARACALVIN STEFANY JAIMES [id number] [facility] 2024-01-24 00:00:00 2024-01-24 00:00:00 Outpatient AMY SKY STEFANY JAIMES [id number] [facility] 2024-01-24 00:00:00 2024-01-24 00:00:00 Outpatient AMY SKY [facility] [id number] [facility]-24 00:00:00 2024-01-24 00:00:00 Outpatient AMY SKY STEFANY JAIMES [id number] [facility] 2024-01-24 00:00:00 2024-01-24 00:00:00 Outpatient MD STEFANY GOOD [id number] [facility] 2024-01-22 16:25:00 2024-01-22 16:25:00 Outpatient LAB90 STEFANY JAIMES [id number] [facility] 2024-01-22 00:00:00 2024-01-22 00:00:00 Outpatient AMY SKY STEFANY JAIMES [id number] [facility] 2024-01-17 11:00:00 2024-01-17 11:00:00 Outpatient AMY SKY STEFANY JAIMES [id number] [facility] 2023-12-31 00:00:00 2023-12-31 11:40:15 Telephone Gloria Ramirez [facility] 1.2.840.114 350.1.13.10 4.2.7.2.686 [id number] [facility] 2023-10-06 00:00:00 2023-10-08 11:24:55 Refill Keyla Aviles [facility] 1.2.840.114 350.1.13.10 4.2.7.2.686 [id number] 044 [id number] [facility] 2023-09-14 00:00:00 2023-09-14 13:12:00 Telephone [facility] ([facility]) 1.2.840.114 350.1.13.10 4.2.7.2.686 [id number] 016 [id number] [facility] 2023-08-09 00:00:00 2023-08-09 08:40:12 Telephone [facility] ([facility]) 1.2.840.114 350.1.13.10 4.2.7.2.686 [id number] [id number] [facility] 2023-08-03 00:00:00 2023-08-06 10:12:41 Refill Kimi Zafar [facility] 1.2.840.114 350.1.13.10 4.2.7.2.686 [id number] 044 [id number] [facility] 2023-06-29 00:00:00 2023-06-29 00:00:00 Telephone Keyla Aviles [facility] 1.2.840.114 350.1.13.10 4.2.7.2.686 [id number] 044 [id number] [facility] 2023-06-20 00:00:00 2023-06-20 00:00:00 Telephone Keyla Aviles [facility] 1.2.840.114 350.1.13.10 4.2.7.2.686 [id number] [id number] [facility] 2023-06-20 00:00:00 2023-06-20 00:00:00 Telephone Keyla Aviles [facility] 1.2.840.114 350.1.13.10 4.2.7.2.686 [id number] [id number] [facility] 2023-06-15 00:00:00 2023-06-15 00:00:00 Telephone Keyla Aviles [facility] 1.2.840.114 350.1.13.10 4.2.7.2.686 [id number] 044 [id number] [facility] 2023-06-13 00:00:00 2023-06-13 00:00:[address] [facility] ([facility]) 1.2.840.114 350.1.13.10 4.2.7.2.686 [id number] [id number] [facility] 2023-06-12 00:00:00 2023-06-12 00:00:00 [facility] 1.2.840.114 350.1.13.10 4.2.7.2.686 [id number] 044 [id number] [facility] 2023-06-12 00:00:00 2023-06-12 00:00:00 Refill Keyla Aviles [facility] 1.2.840.114 350.1.13.10 4.2.7.2.686 [id number] 044 [id number] [facility] 2023-06-11 00:00:00 2023-06-11 00:00:00 Patient Secure Msg Doctor Unassigned, [place] [facility] 1.2.840.114 350.1.13.10 4.2.7.2.686 [id number] 044 [id number] [facility] 2023-06-08 00:00:00 2023-06-08 00:00:00 Telephone Keyla Aviles [facility] 1.2.840.114 350.1.13.10 4.2.7.2.686 [id number] [facility] 2023-06-06 00:00:00 2023-06-06 00:00:00 Patient Outreach Priscilla Mckeon [facility] 1.2.840.114 350.1.13.10 4.2.7.2.686 [id number] 044 [id number] [facility] 2023-06-04 00:00:00 2023-06-04 00:00:00 Telephone Keyla Aviles [facility] 1.2.840.114 350.1.13.10 4.2.7.2.686 [id number] 044 [id number] [facility] 2023-06-04 00:00:00 2023-06-04 00:00:00 Patient Secure Msg Keyla Aviles [facility] 1.2.840.114 350.1.13.10 4.2.7.2.686 [id number] 044 [id number] [facility] 2023-05-31 15:20:00 2023-05-31 16:51:15 Outpatient R KEYLA AVILES [facility] [id number] [facility] 2023-05-31 15:20:00 2023-05-31 16:51:15 Office Visit Keyla Aviles [facility] 1.2.840.114 350.1.13.10 4.2.7.2.686 [id number] [facility] 2023-05-30 00:00:00 2023-05-30 00:00:00 Orders Only Doctor Unassigned, [place] [facility] 1.2.840.114 350.1.13.10 4.2.7.2.686 [id number] [facility] 2023-05-29 00:00:00 2023-05-29 00:00:00 Telephone Kimi Zafar [facility] 1.2.840.114 350.1.13.10 4.2.7.2.686 [id number] 044 [id number] [facility] 2023-05-28 00:00:00 2023-05-28 00:00:00 Telephone Kimi Zafar [facility] 1.2.840.114 350.1.13.10 4.2.7.2.686 [id number] 044 [id number] [facility] 2023-05-07 16:00:00 2023-05-07 16:00:00 Outpatient R KIMI ZAFAR [facility] [id number] [facility] 2023-04-05 15:30:00 2023-04-05 15:58:52 Outpatient R KIMI ZAFAR [facility] [id number] [facility] 2023-04-05 15:30:00 2023-04-05 15:58:52 Office Visit Kimi Zafar [facility] 1.2.840.114 350.1.13.10 4.2.7.2.686 [id number] 044 [id number] [facility] 2023-03-22 15:00:00 2023-03-22 15:00:00 Outpatient R KEYLA AVILES [facility] [id number] [facility] 2023-02-20 00:00:00 2023-02-20 00:00:00 Patient Outreach Jane Lee [facility] 1.2.840.114 350.1.13.10 4.2.7.2.686 [id number] 044 [id number] [facility] 2023-02-20 00:00:00 2023-02-20 00:00:00 Patient Secure Msg Doctor Unassigned, [place] [facility] 1.2.840.114 350.1.13.10 4.2.7.2.686 [id number] [facility] 2023-02-19 16:00:00 2023-02-19 16:32:21 Outpatient R SHELBI SPARKS OGECHUKWU [facility] [id number] [facility] 2023-02-19 16:00:00 2023-02-19 16:32:21 Office Visit Nemesio Blair Ogechukwu [facility] 1.2.840.114 350.1.13.10 4.2.7.2.686 [id number] 044 [id number] [facility] 2023-02-19 00:00:00 2023-02-19 00:00:00 Orders Only Doctor Unassigned, [place] [facility] 1.2.840.114 350.1.13.10 4.2.7.2.686 [id number] [facility] 2023-02-12 15:00:00 2023-02-12 15:00:00 Outpatient R SHELBI SPARKS OGECHUKWU [facility] [id number] [facility] 2023-02-05 15:00:00 2023-02-05 15:00:00 Outpatient R SHELBI SPARKS OGECHUKWU [facility] [id number] [facility] 2023-01-23 11:07:00 2023-01-23 15:14:00 Emergency X FREYA GOMEZ [facility] [id number] [facility] 2023-01-23 11:07:00 2023-01-23 15:14:00 Emergency Freya Gomez [facility] 1..840.114 350.1.13.10 4.2.7.2.686 [id number] [facility] 2023-01-23 11:07:00 2023-01-23 15:14:00 Emergency X FREYA GOMEZ [facility] ERT [id number] [facility] 2023-01-22 15:16:51 2023-01-22 15:16:51 Outpatient [facility] [id number] Tru Hart 2021-07-22 09:00:00 2021-07-22 09:00:00 Outpatient R SELENA UGARTE [facility] [id number] [facility] 2021-07-22 09:00:00 2021-07-22 09:00:00 Outpatient R SELENA UGARTE [facility] [id number] [facility] 2021-07-22 09:00:00 2021-07-22 09:00:00 Outpatient R SELENA UGARTE [facility] [id number] [facility] 2021-05-24 09:00:00 2021-05-24 23:59:00 [facility] [id number] [facility] 2021-05-24 09:00:00 2021-05-24 09:00:00 Outpatient R SELENA UGARTE [facility] [id number] [facility] 2021-05-23 09:30:00 2021-05-23 16:47:19 Outpatient R SELENA UGARTE [facility] [id number] [facility] 2021-05-23 09:30:00 2021-05-23 10:00:00 Office Visit Selena Ugarte [facility] .840.114 350.1.13.10 4.2.7.2.686 [id number] [facility] 2021-05-23 09:30:00 2021-05-23 09:30:00 Outpatient Isa SUAREZADSELENA [facility] [id number] [facility] 2021-05-23 09:30:00 2021-05-23 09:30:00 Outpatient SELENA SHARMA [facility] [id number] [facility] 2021-05-16 00:00:00 2021-05-16 00:00:00 Orders Only Doctor Unassigned, [place] [facility] 1.2.840.114 350.1.13.10 4.2.7.2.686 [id number] [facility] 2019-05-07 06:30:00 2019-05-07 23:59:00 Hospital Encounter VernonTk Dario Sanford/[facility] 1.2.840.114 350.1.13.10 4.2.7.2.686 [id number] [facility] 2019-04-23 06:20:00 2019-04-23 23:59:00 Hospital Encounter Leonela Baker/[facility] 1.2.840.114 350.1.13.10 4.2.7.2.686 [id number] [facility] 2019-04-23 06:19:00 2019-04-23 06:19:00 Hospital Encounter Leonela Baker/[facility] 1.2.840.114 350.1.13.10 4.2.7.2.686 [id number] [facility] 2019-04-23 06:19:00 2019-04-23 06:19:00 Hospital Encounter Leonela Baker/[facility] 1.2.840.114 350.1.13.10 4.2.7.2.686 [id number] [facility] 2018-12-11 00:00:00 2018-12-11 00:00:00 Orders Only Doctor Unassigned, [place] [facility] 1.2.840.114 350.1.13.10 4.2.7.2.686 [id number] [facility] 2018-12-03 22:00:00 2018-12-05 02:22:00 Hospital Encounter [facility] 1.2.840.114 350.1.13.10 4.2.7.2.686 [id number] [facility] 2018-12-02 10:58:00 2018-12-03 21:59:00 Hospital Encounter [facility] 1.2.840.114 350.1.13.10 4.2.7.2.686 [id number] [facility] 2018-12-03 09:40:00 2018-12-03 11:00:00 Anesthesia Xavi Serrano [facility] 1.2.840.114 350.1.13.10 4.2.7.2.686 [id number] [facility] 2018-11-18 07:33:30 2018-11-20 15:45:28 Office Visit Surgery, [facility] 1.2.840.114 350.1.13.10 4.2.7.2.686 [id number] [facility] 2018-11-18 06:30:00 2018-11-18 19:08:00 Hospital Encounter [facility] 1.2.840.114 350.1.13.10 4.2.7.2.686 [id number] [facility] Results Test Description Test Time Test Comments Results Result Comments Source SCANNED LAB RESULTS 17:52:07 Ordered by an unspecified provider. [facility] SCANNED LAB RESULTS 17:52:05 Ordered by an unspecified provider. [facility] SCANNED LAB RESULTS 15:10:21 Ordered by an unspecified provider. [facility] XR CERVICAL SPINE 2 VW 18:45:08 XR CERVICAL SPINE 2 VW HISTORY: Male 46 years pain COMPARISON: None FINDINGS: Straightening of normal cervical lordosis. The [...] at C5-C6, more pronounced on the right. [facility] XR SHOULDER 2+ VW LEFT 17:08:52 No acute bony abnormality. 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 Preliminary Report Dictated by [...] this study and agree with the abovereport. [facility] XR HIPS 2 VW RIGHT 17:06:54 No acute bony abnormality. Mild osteoarthrosis of the right hip joint. Preliminary Report Dictated by [...] this study and agree with the abovereport. [facility] XR LUMBAR SPINE 2 VW 15:12:24 XR LUMBAR SPINE 2 VW HISTORY: Male 46 years pain COMPARISON: None FINDINGS: The vertebral bodies are normal in height and in normal alignment. No more than mild degenerative changes are present.[facility], Radiant Results Inft User - 04/23/2019 9:13 AM CSTXR LUMBAR SPINE 2 VWHISTORY: Male 46 years pain COMPARISON: NoneFINDINGS:The vertebral bodies are normal in height and in normal alignment.No more than mild degenerative changes are present. [facility] ([id number][facility]2018-11-18 16:08:00* Test Item Value Reference Range Interpretation Comme nts NA (test code = 3291169195) 142 mmol/L 135-145 K (test code = 7206013816) 4.3 mmol/L 3.5-5 CL (test code = 5652520390) 104 mmol/L 98-108 CO2 TOTAL (test code = 7581957774) 27 mmol/L 23-31 AGAP (test code = 8253095651) 2-16 BUN (test code = 1218695601) 11 mg/dL 7-23 GLUCOSE (test code = 3671045927) 149 mg/dL 70-110 H CREATININE (test code = 3612884968) 0.85 mg/dL 0.6-1.25 TOTAL BILI (test code = 3234216485) 0.5 mg/dL 0.1-1.1 CALCIUM (test code = 8797849815) 9.5 mg/dL 8.6-10.6 T PROTEIN (test code = 6708625939) 7.8 g/dL 6.3-8.2 ALBUMIN (test code = 2351086832) 4.4 g/dL 3.5-5 ALK PHOS (test code = 2556751371) 50 U/L 34-122 ALT(SGPT) (test code = 7142180295) 52 U/L 9-51 H AST(SGOT) (test code = 2883341959) 49 U/L 13-40 H eGFR Calculation (Non-) (test code = 1863192739) mL/min/1.73m2 eGFR Calculation () (test code = 1149544693) mL/min/1.73m2 IVETH (test code = IVETH) Association of [...] imaging tests). Lab Interpretation (test code = 67699-9) Abnormal [facility]. METABOLIC PANEL ([id number])2018-11-18 16:08:00* Test Item Value Reference Range Interpretation Comme nts NA (test code = 9579285348) 142 mmol/L 135-145 K (test code = 1394864934) 4.3 mmol/L 3.5-5 CL (test code = 5855261875) 104 mmol/L 98-108 CO2 TOTAL (test code = 5446331318) 27 mmol/L 23-31 AGAP (test code = 1484408427) 2-16 BUN (test code = 3558936988) 11 mg/dL 7-23 GLUCOSE (test code = 7990540464) 149 mg/dL 70-110 H CREATININE (test code = 4277369131) 0.85 mg/dL 0.6-1.25 TOTAL BILI (test code = 8720546123) 0.5 mg/dL 0.1-1.1 CALCIUM (test code = 5859172730) 9.5 mg/dL 8.6-10.6 T PROTEIN (test code = 3297538815) 7.8 g/dL 6.3-8.2 ALBUMIN (test code = 6668755169) 4.4 g/dL 3.5-5 ALK PHOS (test code = 4274343786) 50 U/L 34-122 ALT(SGPT) (test code = 7359845984) 52 U/L 9-51 H AST(SGOT) (test code = 5155099749) 49 U/L 13-40 H eGFR Calculation (Non-) (test code = 1744607623) mL/min/1.73m2 eGFR Calculation () (test code = 0178811207) mL/min/1.73m2 IVETH (test code = IVETH) Association of [...] imaging tests). Lab Interpretation (test code = 01241-9) Abnormal [facility] WITH [id number] 15:47:00* Test Item Value Reference Range Interpretation Comme nts WBC (test code = 6690-2) See_Comment [[employer]] The system which generated this result transmitted reference range: 4.20 - 10.70 10*3/?L. The reference range was not used to interpret this result as normal/abnormal. RBC (test code = 789-8) See_Comment [Automated [employer]] The system which generated this result transmitted reference range: 4.26 - 5.52 10*6/?L. The reference range was not used to interpret this result as normal/abnormal. HGB (test code = 718-7) 15.9 g/dL 12.2-16.4 HCT (test code = 4544-3) 47.8 % 38.4-49.3 MCV (test code = 787-2) 91.6 fL 81.7-95.6 MCH (test code = 785-6) 30.5 pg 26.1-32.7 MCHC (test code = 786-4) 33.3 g/dL 31.2-35 RDW-SD (test code = 06697-8) 40.2 fL 38.5-51.6 RDW-CV (test code = 788-0) 11.9 % 12.1-15.4 L PLT (test code = 777-3) See_Comment [Automated messa ge] The system which generated this result transmitted reference range: 150 - 328 10*3/?L. The reference range was not used to interpret this result as normal/abnormal. MPV (test code = 93376-8) 9.9 fL 9.8-13 NRBC/100 WBC (test code = 0749213507) See_Comment [Automated [employer] ssage] The system which generated this result transmitted reference range: 0.0 - 10.0 /100 WBCs. The reference range was not used to interpret this result as normal/abnormal. NRBC x10^3 (test code = 0125729023) <0.01 See_Comment [Automated messa ge] The system which generated this result transmitted reference range: 10*3/?L. The reference range was not used to interpret this result as normal/abnormal. GRAN MAT (NEUT) % (test code = 770-8) 52.4 % IMM GRAN % (test code = 0265132019) 0.20 % LYMPH % (test code = 736-9) 39.4 % MONO % (test code = 5905-5) 6.1 % EOS % (test code = 713-8) 1.4 % BASO % (test code = 706-2) 0.5 % GRAN MAT x10^3(ANC) (test code = 0607501567) 3.11 10*3/uL 1.99-6.95 IMM GRAN x10^3 (test code = 1399819262) <0.03 0-0.06 LYMPH x10^3 (test code = 731-0) 2.33 10*3/uL 1.09-3.23 MONO x10^3 (test code = 742-7) 0.36 10*3/uL 0.36-1.02 EOS x10^3 (test code = 711-2) 0.08 10*3/uL 0.06-0.53 BASO x10^3 (test code = 704-7) 0.03 10*3/uL 0.01-0.09 Lab Interpretation (test code = 50453-3) Abnormal [facility] WITH [id number] 15:47:00* Test Item Value Reference Range Interpretation Comme nts WBC (test code = 6690-2) See_Comment [Automated messa ge] The system which generated this result transmitted reference range: 4.20 - 10.70 10*3/?L. The reference range was not used to interpret this result as normal/abnormal. RBC (test code = 789-8) See_Comment [Automated messa ge] The system which generated this result transmitted reference range: 4.26 - 5.52 10*6/?L. The reference range was not used to interpret this result as normal/abnormal. HGB (test code = 718-7) 15.9 g/dL 12.2-16.4 HCT (test code = 4544-3) 47.8 % 38.4-49.3 MCV (test code = 787-2) 91.6 fL 81.7-95.6 MCH (test code = 785-6) 30.5 pg 26.1-32.7 MCHC (test code = 786-4) 33.3 g/dL 31.2-35 RDW-SD (test code = 83457-3) 40.2 fL 38.5-51.6 RDW-CV (test code = 788-0) 11.9 % 12.1-15.4 L PLT (test code = 777-3) See_Comment [Automated messa ge] The system which generated this result transmitted reference range: 150 - 328 10*3/?L. The reference range was not used to interpret this result as normal/abnormal. MPV (test code = 31668-4) 9.9 fL 9.8-13 NRBC/100 WBC (test code = 2727687277) See_Comment [Automated [employer] ssage] The system which generated this result transmitted reference range: 0.0 - 10.0 /100 WBCs. The reference range was not used to interpret this result as normal/abnormal. NRBC x10^3 (test code = 2442572763) <0.01 See_Comment [Automated messa ge] The system which generated this result transmitted reference range: 10*3/?L. The reference range was not used to interpret this result as normal/abnormal. GRAN MAT (NEUT) % (test code = 770-8) 52.4 % IMM GRAN % (test code = 2390802855) 0.20 % LYMPH % (test code = 736-9) 39.4 % MONO % (test code = 5905-5) 6.1 % EOS % (test code = 713-8) 1.4 % BASO % (test code = 706-2) 0.5 % GRAN MAT x10^3(ANC) (test code = 4016660336) 3.11 10*3/uL 1.99-6.95 IMM GRAN x10^3 (test code = 5116424353) <0.03 0-0.06 LYMPH x10^3 (test code = 731-0) 2.33 10*3/uL 1.09-3.23 MONO x10^3 (test code = 742-7) 0.36 10*3/uL 0.36-1.02 EOS x10^3 (test code = 711-2) 0.08 10*3/uL 0.06-0.53 BASO x10^3 (test code = 704-7) 0.03 10*3/uL 0.01-0.09 Lab Interpretation (test code = 57952-2) Abnormal [facility] WITH [id number] 15:47:00* Test Item Value Reference Range Interpretation Comme nts WBC (test code = 6690-2) See_Comment [Automated messa ge] The system which generated this result transmitted reference range: 4.20 - 10.70 10*3/?L. The reference range was not used to interpret this result as normal/abnormal. RBC (test code = 789-8) See_Comment [Automated messa ge] The system which generated this result transmitted reference range: 4.26 - 5.52 10*6/?L. The reference range was not used to interpret this result as normal/abnormal. HGB (test code = 718-7) 15.9 g/dL 12.2-16.4 HCT (test code = 4544-3) 47.8 % 38.4-49.3 MCV (test code = 787-2) 91.6 fL 81.7-95.6 MCH (test code = 785-6) 30.5 pg 26.1-32.7 MCHC (test code = 786-4) 33.3 g/dL 31.2-35 RDW-SD (test code = 44939-1) 40.2 fL 38.5-51.6 RDW-CV (test code = 788-0) 11.9 % 12.1-15.4 L PLT (test code = 777-3) See_Comment [Automated [employer] (previously [employer]a ge] The system which generated this result transmitted reference range: 150 - 328 10*3/?L. The reference range was not used to interpret this result as normal/abnormal. MPV (test code = 47752-4) 9.9 fL 9.8-13 NRBC/100 WBC (test code = 1394035726) See_Comment [Automated [employer] ssage] The system which generated this result transmitted reference range: 0.0 - 10.0 /100 WBCs. The reference range was not used to interpret this result as normal/abnormal. NRBC x10^3 (test code = 8285050969) <0.01 See_Comment [Automated [employer] (previously [employer]a ge] The system which generated this result transmitted reference range: 10*3/?L. The reference range was not used to interpret this result as normal/abnormal. GRAN MAT (NEUT) % (test code = 770-8) 52.4 % IMM GRAN % (test code = 6362247874) 0.20 % LYMPH % (test code = 736-9) 39.4 % MONO % (test code = 5905-5) 6.1 % EOS % (test code = 713-8) 1.4 % BASO % (test code = 706-2) 0.5 % GRAN MAT x10^3(ANC) (test code = 2973507113) 3.11 10*3/uL 1.99-6.95 IMM GRAN x10^3 (test code = 9907206819) <0.03 0-0.06 LYMPH x10^3 (test code = 731-0) 2.33 10*3/uL 1.09-3.23 MONO x10^3 (test code = 742-7) 0.36 10*3/uL 0.36-1.02 EOS x10^3 (test code = 711-2) 0.08 10*3/uL 0.06-0.53 BASO x10^3 (test code = 704-7) 0.03 10*3/uL 0.01-0.09 Lab Interpretation (test code = 43147-1) Abnormal [facility] WITH [id number] 15:47:00* Test Item Value Reference Range Interpretation Comme nts WBC (test code = 6690-2) See_Comment [Automated [employer] (previously [employer]a Swipely] The system which generated this result transmitted reference range: 4.20 - 10.70 10*3/?L. The reference range was not used to interpret this result as normal/abnormal. RBC (test code = 789-8) See_Comment [Automated [employer] (previously [employer]a Sw[employer]ely] The system which generated this result transmitted reference range: 4.26 - 5.52 10*6/?L. The reference range was not used to interpret this result as normal/abnormal. HGB (test code = 718-7) 15.9 g/dL 12.2-16.4 HCT (test code = 4544-3) 47.8 % 38.4-49.3 MCV (test code = 787-2) 91.6 fL 81.7-95.6 MCH (test code = 785-6) 30.5 pg 26.1-32.7 MCHC (test code = 786-4) 33.3 g/dL 31.2-35 RDW-SD (test code = 90473-8) 40.2 fL 38.5-51.6 RDW-CV (test code = 788-0) 11.9 % 12.1-15.4 L PLT (test code = 777-3) See_Comment [Automated [employer] (previously [employer]a Sw[employer]] The system which generated this result transmitted reference range: 150 - 328 10*3/?L. The reference range was not used to interpret this result as normal/abnormal. MPV (test code = 42204-4) 9.9 fL 9.8-13 NRBC/100 WBC (test code = 3524692105) See_Comment [Automated [employer] ssage] The system which generated this result transmitted reference range: 0.0 - 10.0 /100 WBCs. The reference range was not used to interpret this result as normal/abnormal. NRBC x10^3 (test code = 8537968503) <0.01 See_Comment [Automated messa ge] The system which generated this result transmitted reference range: 10*3/?L. The reference range was not used to interpret this result as normal/abnormal. GRAN MAT (NEUT) % (test code = 770-8) 52.4 % IMM GRAN % (test code = 3755722575) 0.20 % LYMPH % (test code = 736-9) 39.4 % MONO % (test code = 5905-5) 6.1 % EOS % (test code = 713-8) 1.4 % BASO % (test code = 706-2) 0.5 % GRAN MAT x10^3(ANC) (test code = 7141417406) 3.11 10*3/uL 1.99-6.95 IMM GRAN x10^3 (test code = 7395914582) <0.03 0-0.06 LYMPH x10^3 (test code = 731-0) 2.33 10*3/uL 1.09-3.23 MONO x10^3 (test code = 742-7) 0.36 10*3/uL 0.36-1.02 EOS x10^3 (test code = 711-2) 0.08 10*3/uL 0.06-0.53 BASO x10^3 (test code = 704-7) 0.03 10*3/uL 0.01-0.09 Lab Interpretation (test code = 76967-2) Abnormal [facility] WITH [id number] 15:47:00* Test Item Value Reference Range Interpretation Comme nts WBC (test code = 6690-2) See_Comment [Automated messa ge] The system which generated this result transmitted reference range: 4.20 - 10.70 10*3/?L. The reference range was not used to interpret this result as normal/abnormal. RBC (test code = 789-8) See_Comment [Automated messa ge] The system which generated this result transmitted reference range: 4.26 - 5.52 10*6/?L. The reference range was not used to interpret this result as normal/abnormal. HGB (test code = 718-7) 15.9 g/dL 12.2-16.4 HCT (test code = 4544-3) 47.8 % 38.4-49.3 MCV (test code = 787-2) 91.6 fL 81.7-95.6 MCH (test code = 785-6) 30.5 pg 26.1-32.7 MCHC (test code = 786-4) 33.3 g/dL 31.2-35 RDW-SD (test code = 83570-4) 40.2 fL 38.5-51.6 RDW-CV (test code = 788-0) 11.9 % 12.1-15.4 L PLT (test code = 777-3) See_Comment [Automated [employer] ([employer]viously [employer]a ge] The system which generated this result transmitted reference range: 150 - 328 10*3/?L. The reference range was not used to interpret this result as normal/abnormal. MPV (test code = 42238-6) 9.9 fL 9.8-13 NRBC/100 WBC (test code = 5879038547) See_Comment [Automated [employer] ssage] The system which generated this result transmitted reference range: 0.0 - 10.0 /100 WBCs. The reference range was not used to interpret this result as normal/abnormal. NRBC x10^3 (test code = 8569933334) <0.01 See_Comment [Automated [employer] (previously [employer])a ge] The system which generated this result transmitted reference range: 10*3/?L. The reference range was not used to interpret this result as normal/abnormal. GRAN MAT (NEUT) % (test code = 770-8) 52.4 % IMM GRAN % (test code = 5583676076) 0.20 % LYMPH % (test code = 736-9) 39.4 % MONO % (test code = 5905-5) 6.1 % EOS % (test code = 713-8) 1.4 % BASO % (test code = 706-2) 0.5 % GRAN MAT x10^3(ANC) (test code = 0573335592) 3.11 10*3/uL 1.99-6.95 IMM GRAN x10^3 (test code = 7467773427) <0.03 0-0.06 LYMPH x10^3 (test code = 731-0) 2.33 10*3/uL 1.09-3.23 MONO x10^3 (test code = 742-7) 0.36 10*3/uL 0.36-1.02 EOS x10^3 (test code = 711-2) 0.08 10*3/uL 0.06-0.53 BASO x10^3 (test code = 704-7) 0.03 10*3/uL 0.01-0.09 Lab Interpretation (test code = 75113-0) Abnormal [facility] Notes Date/Time Note Provider Source 2023-12-31 11:37:32 12/30: First attempt to contact Marisela Vail to remind him to complete SVR12 labs. No answer. VM not set up, unable to leave a message. If no return call from patient, will attempt again at a later date. Sent Mang?rKarthart message. 01/02: Second attempt to contact Marisela Vail to remind him to complete SVR12 labs. No answer. VM not set up, unable to leave a message. If no return call from patient, will attempt again at a later date. Mychart message unread. 01/07: Third and final attempt to contact Marisela Vail to remind him to complete SVR12 labs. No answer. not set up, unable to leave a message. Mychart message unread. No follow-up appointment scheduled. Gloria Ramirez, Gavino Clinical Pharmacist - GI/Hepatology [phone] Gloria Ramirez [facility] 2023-10-08 11:19:00 Images from the original note were not included. Refill request refilled per ambulatory refill guidelines. Notes: Name from pharmacy: amLODIPine Besylate 10 MG Oral Tablet Will file in chart as: AMLODIPINE 10 mg tablet Sig: TAKE 1 TABLET BY MOUTH IN THE MORNING Disp: 30 tablet Refills: 0 Start: 10/06/2023 Class: eRX For: Hypertensive urgency Last ordered: 1 month ago (09/03/2023) by Keyla Aviles MD Last refill: 09/11/2023 Rx #: [id number] Calcium Channel Blockers Wzccky2510/06/2023 05:59 AM Protocol Details Valid encounter within last 12 months Name from pharmacy: Carvedilol 12.5 MG Oral Tablet Will file in chart as: CARVEDILOL 12.5 mg tablet Sig: TAKE 1 TABLET BY MOUTH TWICE DAILY IN THE MORNING AND IN THE EVENING WITH MEALS Disp: 60 tablet Refills: 0 Start: 10/06/2023 Class: eRX For: Hypertensive urgency Last ordered: 1 month ago (09/03/2023) by Keyla Aviles MD Last refill: 09/11/2023 Rx #: [id number] Cardiovascular: Beta Blockers Okxwyo9710/06/2023 05:59 AM Protocol Details Valid encounter within last 12 months Heart rate within normal limits and completed in the last 12 months To be filled at: [address] Last Refilled: 09/11/23 Recent Visits Date Type Provider Dept 05/31/23 Office Visit Keyla Aviles MD [facility] 04/05/23 Office Visit Kimi Zafar FNP [facility] 02/19/23 Office Visit Nemesio Blair MD [facility] Showing recent visits within past 540 days with a meds authorizing provider and meeting all other requirements Future Appointments No visits were found meeting these conditions. Showing future appointments within next 150 days with a meds authorizing provider and meeting all other requirements Kimi Chand MA [facility] 2023-09-14 13:05:55 Patient Reassessment: Hepatitis C Therapy DATE: 09/14/23 Marisela Vail is a 48 year old y/o /White male referred to PharmD by Dr. Aviles for medication management. Summary of Visit Mr. Vail is doing well today. He denies any side effects from Epclusa therapy. Reports missing ~7 doses as he went out of town and forgot to bring medication. Has ~14 doses remaining, was not at home to confirm remaining doses. Labs were not completed since last call. Strongly recommended completing labs NEENA as if VL is detectable, per AASLD guidelines would have to consider patient treatment failure and retreat with an alternative agent. Patient confirms understanding. Will follow-up in 1.5 weeks. No follow-up appointment with Dr. Aviles scheduled. Edit 09/25: Called to verify remaining doses, pt not at home so unable to confirm. Asked him to call clinical pharmacist back once he is home to verify doses remaining. He confirms understanding. Edit 10/02: Called to verify pill count. No answer. Unable to leave a message. Edit 10/04: Called to verify pill count. No answer. Unable to leave a message. Edit 10/11: Called patient to confirm end date. Patient states it was last week but unsure when. Will set end date as 10/05. SVR12 due on or after 12/29/23 Start date: 06/22/23 End date: 10/06/23 Appropriateness of Hepatitis C Therapy: The regimen of Epclusa for 12 weeks remains appropriate for Marisela Vail who has hepatitis C, genotype 1a, is treatment naive and non-cirrhotic. No renal or hepatic adjustments are required for this hepatitis C regimen. At this time there is no planned dose titration. Assessment of Hepatitis C Therapy: Therapeutic Goals: Patient will continue on HCV therapy at this time. Therapeutic benefit will be assessed by obtaining a HCV PCR 12 weeks after completion of HCV therapy. SVR achieved: No - patient is still on treatment Labs and Diagnostic tests: WBC x10 3 (/CMM) Date Value 08/25/2009 6.8 WBC (10*3/?L) Date Value 01/23/2023 5.66 RBC x10 6 (/CMM) Date Value 08/25/2009 4.96 RBC (10*6/?L) Date Value 01/23/2023 5.15 HGB Date Value 01/23/2023 16.4 g/dL 08/25/2009 15.5 G/DL HCT (%) Date Value 01/23/2023 48.3 08/25/2009 43.4 PT INR (no units) Date Value 08/25/2009 1.1 APTT (SEC) Date Value 08/25/2009 34 NA Date Value 01/23/2023 141 mmol/L 08/25/2009 137 MMOL/L K Date Value 01/23/2023 3.7 mmol/L 08/25/2009 4.5 MMOL/L CL Date Value 01/23/2023 103 mmol/L 08/25/2009 102 MMOL/L BUN Date Value 01/23/2023 15 mg/dL 08/25/2009 16 MG/DL CREATININE Date Value 01/23/2023 0.86 mg/dL 08/25/2009 0.80 MG/DL TOTAL BILI Date Value 01/23/2023 0.6 mg/dL 08/19/2008 <0.1 MG/DL (A) BILI CONJ (MG/DL) Date Value 08/19/2008 0.0 BILI UNCON (MG/DL) Date Value 08/19/2008 0.3 T PROTEIN Date Value 01/23/2023 8.7 g/dL (H) 08/19/2008 7.8 G/DL ALBUMIN Date Value 01/23/2023 4.6 g/dL 08/19/2008 4.4 G/DL ALK PHOS (U/L) Date Value 01/23/2023 59 08/19/2008 53 ALT(SGPT) (U/L) Date Value 11/18/2018 52 (H) 08/19/2008 51 ALTv (U/L) Date Value 01/23/2023 66 (H) AST(SGOT) (U/L) Date Value 01/23/2023 61 (H) 08/19/2008 44 (H) Hepatitis C: Genotype: 1A Treatment status: naive Hep C VL: 4,440,000 (06/14/23) Hepatitis B screening: No results found for: "HBSAG", "HBCM", "HBSAB" Allergies: No Known Allergies Immunizations: There is no immunization history on file for this patient. Vaccination history was reviewed. The patient was reminded about the importance of completing hepatitis A and B vaccinations if not immune and receiving an annual influenza vaccine as indicated. Medication Reconciliation: A medication history and reconciliation were performed (including prescription medications, supplements, over the counter, and herbal products). The medication list was updated and the patient's current medication list is included below. Prior to Admission medications Medication Sig Start Date End Date Taking? Authorizing Provider AMLODIPINE 10 mg tablet TAKE 1 TABLET BY MOUTH IN THE MORNING 08/06/23 Keyla Aviles MD CARVEDILOL 12.5 mg tablet TAKE 1 TABLET BY MOUTH IN THE MORNING AND 1 IN THE EVENING WITH MEALS 08/06/23 Keyla Aviles MD cloNIDine 0.1 mg tablet Take 1 tablet by mouth 2 (two) times daily as needed for Other (For systolic BP greater than 180 mmhg). 05/31/23 Keyla Aviles MD Diclofenac Sodium (VOLTAREN) 1 % gel Apply to area(s) 4 (four) times daily. Apply 4 g qid 05/31/23 Keyla Aviles MD gabapentin 100 mg capsule Take 1 capsule by mouth in the morning and 1 capsule at noon and 1 capsule in the evening. 05/31/23 Keyla Aviles MD hydroCHLOROthiazide 25 mg tablet Take 1 tablet by mouth in the morning. 05/31/23 Keyla Aviles MD lidocaine 5 % ointment Apply 2g to affected areas BID PRN 05/31/23 Keyla Aviles MD lisinopriL 40 mg tablet Take 1 tablet by mouth in the morning. 05/31/23 Keyla Aviles MD sofosbuvir-velpatasvir (EPCLUSA) 400-100 mg Take 1 tablet by mouth in the morning. 05/31/23 Keyla Aviles MD tiZANidine 2 mg tablet Take 1 tablet by mouth every 8 (eight) hours as needed (muscle spasms). 05/31/23 Keyla Aviles MD The patient was reminded to speak with their health care provider before starting any new drug, including prescription or over the counter, natural / herbal products, or vitamins. The patient was educated not to start any antacids while on hepatitis C treatment including omeprazole, famotidine, magnesium, and calcium containing agents before consulting with the wing scorer or hepatology clinical pharmacist. Drug Interactions: There are no significant drug-drug interactions Drug-Food Interactions There are no significant drug-food interactions. This medication should be taken with or without food. Adverse effects: Marisela Vail denies having any adverse drug reactions Adherence: Refill history was reviewed with the patient. Marisela Vail states they are adherent with regimen. The patient was reminded about the refill process and re-educated on the importance of adherence. Overall medication adherence status will be discussed with the care team as deemed appropriate. Patient receives their medication from [facility] ([facility] Safety Precautions: status: male - not applicable Risk Evaluation and Mitigation Strategy (REMS) Assessment: No REMS is required for this medication. Contraindications: Marisela Vail has no contraindications to this medication. Follow up Plan: Marisela Vail denies having any questions at this time The patient was reminded of the refill process as discussed during the medication education. Marisela Vail was encouraged to call the hepatology pharmacist at [phone] with questions. The patient will be contacted to complete another reassessment in 2 weeks. Gloria Ramirez PharmD Clinical Pharmacist - GI/Hepatology [phone] Gloria Ramirez [facility] 2023-08-14 09:26:43 Patient insurance is OON. No longer getting seen By Dr. Faith Lillie Barbour MA [facility] 2023-08-13 10:22:23 Pt stated his insurance is OON with [facility]. Uzma Perez [facility] 2023-08-11 10:46:10 Addended by: KEYLA AVILES on: 08/11/2023 10:46 AM Modules accepted: Orders [facility] 2023-08-11 10:35:06 Future non-AZMB labs ordered to be completed at [facility] prior to appointments every 3 months. Please let patient know it is important to adhere to plan of care including labs as ordered. Patient needs follow-up appointment. [facility] 2023-08-09 08:45:22 Patient Reassessment: Hepatitis C Therapy DATE: 08/09/23 Marisela Vail is a 48 year old y/o /White male referred to PharmD by Dr. Aviles for medication management. Summary of Visit Mr. Vail is doing well today. He denies any side effects from Epclusa therapy. Reports missing ~2 doses due to forgetfulness. Has 10 doses remaining from 2nd month, which is suggestive of 3 missed doses. Patient is due for repeat labs (CBC, CMP, HCV VL) to assess response to treatment. Will follow-up in 1 month. No follow-up appointment with Dr. Aviles scheduled. Start date: 06/22/23 Anticipated end date: 09/13/23 Appropriateness of Hepatitis C Therapy: The regimen of Epclusa for 12 weeks remains appropriate for Marisela Vail who has hepatitis C, genotype 1a, is treatment naive and non-cirrhotic. No renal or hepatic adjustments are required for this hepatitis C regimen. At this time there is no planned dose titration. Assessment of Hepatitis C Therapy: Therapeutic Goals: Patient will continue on HCV therapy at this time. Therapeutic benefit will be assessed by obtaining a HCV PCR 12 weeks after completion of HCV therapy. SVR achieved: No - patient is still on treatment Labs and Diagnostic tests: WBC x10 3 (/CMM) Date Value 08/25/2009 6.8 WBC (10*3/?L) Date Value 01/23/2023 5.66 RBC x10 6 (/CMM) Date Value 08/25/2009 4.96 RBC (10*6/?L) Date Value 01/23/2023 5.15 HGB Date Value 01/23/2023 16.4 g/dL 08/25/2009 15.5 G/DL HCT (%) Date Value 01/23/2023 48.3 08/25/2009 43.4 PT INR (no units) Date Value 08/25/2009 1.1 APTT (SEC) Date Value 08/25/2009 34 NA Date Value 01/23/2023 141 mmol/L 08/25/2009 137 MMOL/L K Date Value 01/23/2023 3.7 mmol/L 08/25/2009 4.5 MMOL/L CL Date Value 01/23/2023 103 mmol/L 08/25/2009 102 MMOL/L BUN Date Value 01/23/2023 15 mg/dL 08/25/2009 16 MG/DL CREATININE Date Value 01/23/2023 0.86 mg/dL 08/25/2009 0.80 MG/DL TOTAL BILI Date Value 01/23/2023 0.6 mg/dL 08/19/2008 <0.1 MG/DL (A) BILI CONJ (MG/DL) Date Value 08/19/2008 0.0 BILI UNCON (MG/DL) Date Value 08/19/2008 0.3 T PROTEIN Date Value 01/23/2023 8.7 g/dL (H) 08/19/2008 7.8 G/DL ALBUMIN Date Value 01/23/2023 4.6 g/dL 08/19/2008 4.4 G/DL ALK PHOS (U/L) Date Value 01/23/2023 59 08/19/2008 53 ALT(SGPT) (U/L) Date Value 11/18/2018 52 (H) 08/19/2008 51 ALTv (U/L) Date Value 01/23/2023 66 (H) AST(SGOT) (U/L) Date Value 01/23/2023 61 (H) 08/19/2008 44 (H) Hepatitis C: Genotype: 1A Treatment status: naive Hep C VL: 4,440,000 (06/14/23) Hepatitis B screening: No results found for: "HBSAG", "HBCM", "HBSAB" Allergies: No Known Allergies Immunizations: There is no immunization history on file for this patient. Vaccination history was reviewed. The patient was reminded about the importance of completing hepatitis A and B vaccinations if not immune and receiving an annual influenza vaccine as indicated. Medication Reconciliation: A medication history and reconciliation were performed (including prescription medications, supplements, over the counter, and herbal products). The medication list was updated and the patient's current medication list is included below. Prior to Admission medications Medication Sig Start Date End Date Taking? Authorizing Provider AMLODIPINE 10 mg tablet TAKE 1 TABLET BY MOUTH IN THE MORNING 08/06/23 Keyla Aviles MD CARVEDILOL 12.5 mg tablet TAKE 1 TABLET BY MOUTH IN THE MORNING AND 1 IN THE EVENING WITH MEALS 08/06/23 Keyla Aviles MD cloNIDine 0.1 mg tablet Take 1 tablet by mouth 2 (two) times daily as needed for Other (For systolic BP greater than 180 mmhg). 05/31/23 Keyla Aviles MD Diclofenac Sodium (VOLTAREN) 1 % gel Apply to area(s) 4 (four) times daily. Apply 4 g qid 05/31/23 Keyla Aviles MD gabapentin 100 mg capsule Take 1 capsule by mouth in the morning and 1 capsule at noon and 1 capsule in the evening. 05/31/23 Keyla Aviles MD hydroCHLOROthiazide 25 mg tablet Take 1 tablet by mouth in the morning. 05/31/23 Keyla Aviles MD lidocaine 5 % ointment Apply 2g to affected areas BID PRN 05/31/23 Keyla Aviles MD lisinopriL 40 mg tablet Take 1 tablet by mouth in the morning. 05/31/23 Keyla Aviles MD sofosbuvir-velpatasvir (EPCLUSA) 400-100 mg Take 1 tablet by mouth in the morning. 05/31/23 Keyla Aviles MD tiZANidine 2 mg tablet Take 1 tablet by mouth every 8 (eight) hours as needed (muscle spasms). 05/31/23 Keyla Aviles MD The patient was reminded to speak with their health care provider before starting any new drug, including prescription or over the counter, natural / herbal products, or vitamins. The patient was educated not to start any antacids while on hepatitis C treatment including omeprazole, famotidine, magnesium, and calcium containing agents before consulting with the wing scorer or hepatology clinical pharmacist. Drug Interactions: There are no significant drug-drug interactions Drug-Food Interactions There are no significant drug-food interactions. This medication should be taken with or without food. Adverse effects: Marisela Vail denies having any adverse drug reactions Adherence: Refill history was reviewed with the patient. Marisela Vail states they are adherent with regimen. The patient was reminded about the refill process and re-educated on the importance of adherence. Overall medication adherence status will be discussed with the care team as deemed appropriate. Patient receives their medication from [facility] ([facility] Safety Precautions: status: male - not applicable Risk Evaluation and Mitigation Strategy (REMS) Assessment: No REMS is required for this medication. Contraindications: Marisela Vail has no contraindications to this medication. Follow up Plan: Marisela Vail denies having any questions at this time The patient was reminded of the refill process as discussed during the medication education. Marisela Vail was encouraged to call the hepatology pharmacist at [phone] with questions. The patient will be contacted to complete another reassessment in 1 month. Gloria Ramirez PharmD Clinical Pharmacist - GI/Hepatology [phone] Gloria Ramirez [facility] 2023-08-09 08:38:06 First attempt to contact Marisela Vail to verify compliance and assess tolerance of his specialty medication, Epclusa. No answer. Unable to leave voicemail as box not set up. If no return call from patient, will attempt again at a later date. Gloria Ramirez PharmD Clinical Pharmacist - GI/Hepatology [phone] Gloria Ramirez [facility] 2023-08-06 10:08:46 Images from the original note were not included. Refill request refilled per ambulatory refill guidelines. Notes: Name from pharmacy: amLODIPine Besylate 10 MG Oral Tablet Will file in chart as: AMLODIPINE 10 mg tablet Sig: Take 1 tablet by mouth in the morning. Original sig: TAKE 1 TABLET BY MOUTH IN THE MORNING Disp: 30 tablet Refills: 0 Start: 08/03/2023 Class: eRX For: Hypertensive urgency Last ordered: 1 month ago (06/29/2023) by MELINDA Herndon Last refill: 06/29/2023 Rx #: [id number] Calcium Channel Blockers Crwuaf9708/06/2023 09:44 AM Protocol Details Valid encounter within last 12 months Name from pharmacy: Carvedilol 12.5 MG Oral Tablet Will file in chart as: CARVEDILOL 12.5 mg tablet Sig: TAKE 1 TABLET BY MOUTH IN THE MORNING AND 1 IN THE EVENING WITH MEALS Disp: 60 tablet Refills: 0 Start: 08/03/2023 Class: eRX For: Hypertensive urgency Last ordered: 1 month ago (06/29/2023) by MELINDA Herndon Last refill: 06/29/2023 Rx #: [id number] Cardiovascular: Beta Blockers Xyiosy1508/06/2023 09:44 AM Protocol Details Valid encounter within last 12 months Heart rate within normal limits and completed in the last 12 months To be filled at: [facility] [facility] [address] [place] [address] Last Refilled: 06/29/23 Recent Visits Date Type Provider Dept 05/31/23 Office Visit Keyla Aviles MD [facility] 04/05/23 Office Visit Kimi Zafar FNP [facility] 02/19/23 Office Visit Nemesio Blair MD [facility] Showing recent visits within past 540 days with a meds authorizing provider and meeting all other requirements Future Appointments Date Type Provider Dept 09/04/23 Appointment Keyla Aviles MD [facility] Showing future appointments within next 150 days with a meds authorizing provider and meeting all other requirements Kimi Chand MA [facility] 2023-07-04 11:27:41 Initial Assessment: Hepatitis C Virus Treatment DATE: 07/04/23 Marisela Vail is a 48 year old y/o /White male referred to PharmD by Dr. Aviles for medication management. Summary of Visit Mr. Vail is doing well today. Called to counselling psychologist on Epclusa, but patient has already started therapy. Briefly reviewed side effects with patient. Patient reports that he started either 06/22/23 or 06/25/23, but could not remember which. States he has not missed any doses, but was not at home to verify pill count. Patient reports some weakness, but states it is mild. Patient is HCV positive, genotype 1A, and non-cirrhotic. HIV/HBV negative. Viral load 4,440,000 on 06/14/23. No drug-drug interaction identified. Will follow-up with patient in a month. Next appointment with Dr. Aviles on 09/04/23. Start date: 06/22/23 Anticipated end date: 09/13/23 Indication / Regimen The regimen of Epclusa 1 tablet(s) by mouth once daily for 12 weeks is appropriate for Marisela Vail who has hepatitis C, genotype 1a, is treatment naive and non-cirrhotic. No renal or hepatic adjustments are required for this hepatitis C regimen. At this time there is no planned dose titration. The patient has the ability to self-administer medication Therapeutic Goal: Achieve sustained virologic response (SVR) following completion of HCV therapy. The HCV PCR lab should be drawn 12 weeks after completion of HCV therapy. Baseline characteristics: Past Medical History: Past Medical History: Diagnosis Date Esophageal reflux HCV (hepatitis C virus) Hypertension Long Q-T syndrome Right inguinal hernia 10/06/2016 Labs and Diagnostic tests: WBC x10 3 (/CMM) Date Value 08/25/2009 6.8 WBC (10*3/?L) Date Value 01/23/2023 5.66 RBC x10 6 (/CMM) Date Value 08/25/2009 4.96 RBC (10*6/?L) Date Value 01/23/2023 5.15 HGB Date Value 01/23/2023 16.4 g/dL 08/25/2009 15.5 G/DL HCT (%) Date Value 01/23/2023 48.3 08/25/2009 43.4 PT INR (no units) Date Value 08/25/2009 1.1 APTT (SEC) Date Value 08/25/2009 34 NA Date Value 01/23/2023 141 mmol/L 08/25/2009 137 MMOL/L K Date Value 01/23/2023 3.7 mmol/L 08/25/2009 4.5 MMOL/L CL Date Value 01/23/2023 103 mmol/L 08/25/2009 102 MMOL/L BUN Date Value 01/23/2023 15 mg/dL 08/25/2009 16 MG/DL CREATININE Date Value 01/23/2023 0.86 mg/dL 08/25/2009 0.80 MG/DL TOTAL BILI Date Value 01/23/2023 0.6 mg/dL 08/19/2008 <0.1 MG/DL (A) BILI CONJ (MG/DL) Date Value 08/19/2008 0.0 BILI UNCON (MG/DL) Date Value 08/19/2008 0.3 T PROTEIN Date Value 01/23/2023 8.7 g/dL (H) 08/19/2008 7.8 G/DL ALBUMIN Date Value 01/23/2023 4.6 g/dL 08/19/2008 4.4 G/DL ALK PHOS (U/L) Date Value 01/23/2023 59 08/19/2008 53 ALT(SGPT) (U/L) Date Value 11/18/2018 52 (H) 08/19/2008 51 ALTv (U/L) Date Value 01/23/2023 66 (H) AST(SGOT) (U/L) Date Value 01/23/2023 61 (H) 08/19/2008 44 (H) Hepatitis C: Genotype: 1A Treatment status: naive Hep C VL: 4,440,000 (06/14/23) Hepatitis B screening: No results found for: "HBSAG", "HBCM", "HBSAB" No results found for: "HBA" HIV Screening No results found for: "HIVABQN", "TFW79OI", "GFW16ZYSK" Weight: Wt Readings from Last 1 Encounters: 05/31/23 98.4 kg (217 lb) Allergies: No Known Allergies Immunizations: There is no immunization history on file for this patient. Vaccination history was reviewed. The patient will be reminded about the importance of completing hepatitis B vaccination if not immune and receiving an annual influenza vaccine as indicated. Medication Reconciliation: Medication reconciliation is based on the patient's most recent med list in the electronic medical record (EMR) including herbal products and OTC medications. The patients' medication list will be updated during patient education, after speaking with the patient and prior to dispensing the medication. Prior to Admission medications Medication Sig Start Date End Date Taking? Authorizing Provider amLODIPine (NORVASC) 10 mg tablet Take 1 tablet by mouth in the morning. 06/29/23 Kimi Zafar FNP carvediloL (COREG) 12.5 mg tablet Take 1 tablet by mouth in the morning and 1 tablet in the evening. Take with meals. 06/29/23 Kimi Zafar FNP cloNIDine 0.1 mg tablet Take 1 tablet by mouth 2 (two) times daily as needed for Other (For systolic BP greater than 180 mmhg). 05/31/23 Keyla Aviles MD Diclofenac Sodium (VOLTAREN) 1 % gel Apply to area(s) 4 (four) times daily. Apply 4 g qid 05/31/23 Keyla Aviles MD gabapentin 100 mg capsule Take 1 capsule by mouth in the morning and 1 capsule at noon and 1 capsule in the evening. 05/31/23 Keyla Aviles MD hydroCHLOROthiazide 25 mg tablet Take 1 tablet by mouth in the morning. 05/31/23 Keyla Aviles MD lidocaine 5 % ointment Apply 2g to affected areas BID PRN 05/31/23 Keyla Aviles MD lisinopriL 40 mg tablet Take 1 tablet by mouth in the morning. 05/31/23 Keyla Aviles MD sofosbuvir-velpatasvir (EPCLUSA) 400-100 mg Take 1 tablet by mouth in the morning. 05/31/23 Keyla Aviles MD tiZANidine 2 mg tablet Take 1 tablet by mouth every 8 (eight) hours as needed (muscle spasms). 05/31/23 Keyla Aviles MD Drug Interactions: There are no significant drug-drug interactions Drug-Food Interactions There are no significant drug-food interactions. This medication should be taken with or without food. Safety Precautions: Hepatitis B reactivation risk: low status: male - not applicable Risk Evaluation and Mitigation Strategy (REMS) Assessment: No REMS is required for this medication. Contraindications: Marisela Vail has no contraindications to this medication. Follow up Plan: Initial therapy assessment has been completed and the patient will be contacted and educated on their regimen. Following education the patient will be reassessed 1 month after starting therapy. Gloria Ramirez PharmD Clinical Pharmacist - GI/Hepatology [phone] Gloria Ramirez [facility] 2023-07-04 11:25:45 Patient Education: Hepatitis C Therapy DATE: 07/04/23 Marisela Vail is a 48 year old y/o /White male referred to PharmD by Dr. Aviles for medication counseling. Regimen: I spoke with Marisela Vail today to notify them that Epclusa for 12 weeks has been approved via insurance, and they are ready to begin therapy for hepatitis C. Medication Administration: Marisela Vail was educated to take Epclusa. The patient was counseled on the medication name (brand and generic), dose, route, frequency, duration, medication class, and indication. The patient was educated on common side effects including fatigue and headache. The patient was instructed that they can take acetaminophen for a headache, no more than 2,000 mg per 24 hours. The patient was instructed to take the medication at the same time every day. The patient was educated not to miss any doses, interrupt therapy and/or stop taking the medication without talking to the hepatology team. The importance of adherence was discussed. The patient's ability to be adherent with the treatment plan was discussed and the patient was provided with tools and resources to promote adherence to therapy. The patient's ability to self-administer medication was assessed. Appropriate safe handling, storage and disposal directions were reviewed with the patient. Safety Precautions: Contraindications: Marisela Vail has no contraindications to this medication. The patient was instructed to seek medical attention immediately if they experience signs of an allergic reaction, including but not limited to: a rash; hives; itching; red, swollen, blistered, or peeling skin with or without fever. status was assessed and determined to be: male - not applicable. Medication Reconciliation: A medication history and reconciliation were performed (including prescription medications, supplements, over the counter, and herbal products). The medication list was updated and the patients' current medication list is included below. Prior to Admission medications Medication Sig Start Date End Date Taking? Authorizing Provider amLODIPine (NORVASC) 10 mg tablet Take 1 tablet by mouth in the morning. 06/29/23 Kimi Zafar FNP carvediloL (COREG) 12.5 mg tablet Take 1 tablet by mouth in the morning and 1 tablet in the evening. Take with meals. 06/29/23 Kimi Zafar FNP cloNIDine 0.1 mg tablet Take 1 tablet by mouth 2 (two) times daily as needed for Other (For systolic BP greater than 180 mmhg). 05/31/23 Keyla Aviles MD Diclofenac Sodium (VOLTAREN) 1 % gel Apply to area(s) 4 (four) times daily. Apply 4 g qid 05/31/23 Keyla Aviles MD gabapentin 100 mg capsule Take 1 capsule by mouth in the morning and 1 capsule at noon and 1 capsule in the evening. 05/31/23 Keyla Aviles MD hydroCHLOROthiazide 25 mg tablet Take 1 tablet by mouth in the morning. 05/31/23 Keyla Aviles MD lidocaine 5 % ointment Apply 2g to affected areas BID PRN 05/31/23 Keyla Aviles MD lisinopriL 40 mg tablet Take 1 tablet by mouth in the morning. 05/31/23 Keyla Aviles MD sofosbuvir-velpatasvir (EPCLUSA) 400-100 mg Take 1 tablet by mouth in the morning. 05/31/23 Keyla Aviles MD tiZANidine 2 mg tablet Take 1 tablet by mouth every 8 (eight) hours as needed (muscle spasms). 05/31/23 Keyla Aviles MD The patient was instructed to speak with their health care provider before starting any new drug, including prescription or over the counter, natural / herbal products, or vitamins. The patient was educated not to start any antacids while on hepatitis C treatment including omeprazole, famotidine, magnesium, and calcium containing agents before consulting with wing scorer or hepatology clinical pharmacist. Drug-drug and drug-food interactions with the new therapy were assessed and reviewed with the patient. Appropriate recommended vaccinations were reviewed and discussed with the patient. Pharmacy Information: The patient was notified that their medication will be filled via paper guillotine operator ([facility]). The patient was instructed to notify their clinic nurse coordinator by phone at [phone] when they receive their medication to coordinate a start date. The patient was educated on the refill process. Follow Up: The monitoring and follow-up plan was discussed with the patient. The patient was instructed to contact their health care provider if their symptoms or health problems do not get better or if they become worse. Mariselamuriel Vail denies having any questions at this time. The patient was encouraged to call the hepatology pharmacist at [phone] with any questions. The patient will be contacted within 21 days after initiation of therapy for a complete medication assessment. Gloria Ramirez PharmD Clinical Pharmacist - GI/Hepatology [phone] [facility] 2023-06-29 09:40:07 Call placed to pt to notify of changes. Pt verbalizes understanding and agrees w/POC. Pt states will call clinic at a later time to schedule 2 week f/u appt. ER precautions discussed. I have sent medications to pharmacy Increased Norvasc from 5 to 10 (he was already taking two) Also increased Coreg to 12.5 twice a day He will need an appointment within 2 weeks to review, and we need to keep adjusting until meet goal Please keep a BP log Bring to your next appointment ER for chest pain, dizziness, numbness, tingling, weakness, palpitations, headache, changes in vision or any concerns. Please go to ER for BP > 180/110 Please call if BP > 140/90 Take medications as prescribed Low salt, Heart Healthy Diet Discussed Incorporate life style modifications, such as diet and exercise, smoking cessation. Please call office for BP < 100/60, if you feel dizzy, weak or any concerns. Go to ER for chest pain, dizziness, palpitations, light headedness, weakness, numbness, changes in vision, difficulty walking or any concerns. Pratibha Russell RN [facility] 2023-06-29 08:58:58 I have sent medications to pharmacy Increased Norvasc from 5 to 10 (he was already taking two) Also increased Coreg to 12.5 twice a day He will need an appointment within 2 weeks to review, and we need to keep adjusting until meet goal Please keep a BP log Bring to your next appointment ER for chest pain, dizziness, numbness, tingling, weakness, palpitations, headache, changes in vision or any concerns. Please go to ER for BP > 180/110 Please call if BP > 140/90 Take medications as prescribed Low salt, Heart Healthy Diet Discussed Incorporate life style modifications, such as diet and exercise, smoking cessation. Please call office for BP < 100/60, if you feel dizzy, weak or any concerns. Go to ER for chest pain, dizziness, palpitations, light headedness, weakness, numbness, changes in vision, difficulty walking or any concerns. [facility] 2023-06-28 14:31:43 Contacted pt in regards to [employer] message. Pt states when he feels like his BP is elevated he will take an extra: Amlodipine - "every once in a while", Coreg - "Sometimes taking an extra at night" as well as Lisinopril. Pt unable to give me exact medications or times he takes extra doses of medications just states he alternates them "when needed". Pt states takes Clonidine as needed. Pt states he knows when his BP is elevated due to sometimes experiencing blurry vision, headaches and "feeling hot". Pt reports when he takes his BP at home his readings fluctuate (175/120). Offered pt appt for tomorrow to discuss medications, states he is unemployed at this time has no insurance and unable to pay for visit. Informed pt I would send message to provider for their recommendation, ER precautions given (Chest pain, blurry vision, consistent elevated readings, headaches). Pt verbalizes understanding and agrees w/POC. Message forwarded to provider. Pratibha Russell RN [facility] 2023-06-20 11:53:28 Lab Result - External labs were reviewed and noted - Hep C therapy [epclusa] approved, will initiate therapy and monitor - Goal of achieving undetectable level following therapy that is critical in accessing efficiency of antiviral therapy and sustain viral cure with guaranteed long-term clinical benefit discussed during OV - Patient to complete future labs and keep f/u appointments [facility] 2023-06-20 11:51:52 Images from the original note were not included. Scanned in folder and placed in provider basket for review. Uzma Conde [facility] 2023-06-20 09:42:56 Images from the original note were not included. Test results received from [facility], placed in Dr. Aviles's folder for review. Park Baker [facility] 2023-06-15 09:11:01 Images from the original note were not included. Labs received from [facility] scanned in folder and placed in provider basket. Uzma Conde [facility] 2023-06-13 14:17:49 Awaiting for patient to gt labs done. Will notify the patient that Rx will be mailed to him. Kimi Chand MA [facility] 2023-06-13 12:35:07 Patient approved for Epclusa via paper guillotine operator program. Per Dr. Aviles, patient cannot start Epclusa therapy until labs (HCV VL, genotype, HIV, and HBV serologies) are completed. Patient recently lost job/insurance, so is unable to afford labs as the cost is $600+. Patient has spoken with school social worker and was provided resources. Working on completing applications at the moment. I reached out to a colleague that assists at [facility] to verify if labs can be completed there. Pending response. Gloria Ramirez [facility] 2023-06-13 09:43:06 Duplicated encounter, please view previous encounter. Lillie Barbour MA [facility] 2023-06-13 09:40:57 Spoke with patient and informed Epculsa was approved and just needing lab work prior starting medication. Pt states he is unable to pay for labs due to being unemployed and not having insurance. Routing to provider. Lillie Barbour MA [facility] 2023-06-12 12:31:03 Routing to correct clinic. ZAHRAA BALDWIN MA 06/12/2023 12:31 PM Zahraa Baldwin MA [facility] 2023-06-12 12:08:09 Marisela Vail is a 48 year old male Patient returning missed call regarding medication. Please contact [phone] (home) Davian Riley [facility] 2023-06-12 09:07:55 Images from the original note were not included. [facility] 2023-06-11 15:51:09 Call placed to pt with no answer, VM not set up. Will send pt a [employer] message. Pratibha Russell RN [facility] 2023-06-11 15:25:50 Clinic to let patient know he has been approved for Epclusa therapy to treat Hep C. We need his lab prior to starting medication [Hep C viral load, HIV status, HBV serology (HBsAb, HBsAg and HBcAb]. Thank you. [facility] 2023-06-10 23:53:50 Clinic to help patient with application for [email or web address]. Patient has Hx Hep C, currently not treated, with other comorbid and chronic medical conditions. Advise to complete labs as ordered Okay to start with Hep C genotype, Hep C quantitative, CMP, HIV and Hep labs. T [facility] 2023-06-08 16:35:33 Images from the original note were not included. Myrna Cooper PAP has been approved for the following medication: Drug: Epclusa Expires: 09/10/2023 Lockstitcher : [place] [employer] The paper guillotine operator will be reaching out to the patient to schedule a delivery of the medication to the patient's home. Thank you. Holland Miranda [facility] 2023-06-04 13:52:31 Spoke to patient, he is unable to afford most of the labs due to being unemployed and no insurance, he just needs to know what is the most important lab to get to start treatment.Will route message to provider to review. Roxie aBrros MA 06/04/2023 1:54 PM Roxie Barros MA [facility] 2023-06-04 11:01:46 Marisela Vail is a 48 year old male Patient has questions about his lab orders. Patient states he has to pay out of pocket for his labs and he can not afford to pay for all the labs, pt. Wants to know which labs he has to do to for the provider to prescribe the medication. Deidre Wagner [facility] 2023-05-29 09:06:04 Pt has scheduled appointment 05/31/23. [facility]OM [facility] 08:13:44 Hepatitis C Antibody is reactive He also has elevated Rheumatoid factor I recommend appt with Dr. Faith to discuss Hep C treatments Also referral to Rheumatology Please help with scheduling with De. Aviles Labs were external and are scanned into chart [facility] 2023-05-28 12:35:06 Images from the original note were not included. Lab results received from Clinical Pathology scanned in folder and placed in provider basket for review. N Conde [facility]
[2024-11-15] MEDS ORDERED: ONDANSETRON 4 MG/2 ML VIAL ONE (17:42)
[2024-11-15] MEDS ORDERED: NA CHLORIDE 0.9% 1,000 ML ONE (17:43)
--- NOTE | 2024-11-15 18:19 | RAD REPORT ---
EXAMINATION: Head Brain Wo Cont CLINICAL INDICATION: Male, 49 years old.Weakness;Confused TECHNIQUE: Axial CT images from the skull base to the vertex without intravenous contrast. Coronal an d sagittal reformatted images were created from the data set. One or more of the following dose reduction techniques were used: Automated exposure control, adjustment of the mA and/or kV according to patient size, and/or iterative reconstruction. Unless otherwise specified, incidental findings do not require dedicated imaging follow-up. [id number]. COMPARISON: No prior exams FINDINGS: INTRACRANIAL: No acute intracranial hemorrhage. No acute large vascular territory infarct. No hydroce phalus. No mass effect or midline shift. Area of white matter hypoattenuation at the left basal ganglia suspicious for acute left basal ganglia/thalamic lacunar infarct. VASCULATURE: Coarse calcifications involving the distal right M1 MCA. SCALP/SKULL: No calvarial fracture identified. No acute soft tissue abnormality. SINUSES: The visualized paranasal sinuses are mostly clear. No significant mastoid fluid. IMPRESSION: Findings concerning for an acute left basal ganglia/thalamic infarct. MRI could confirm.
[2024-11-15 18:46] LABS: Absolute Lymphocytes (CBC) 2.2 K/uL (0.7-4.9); Hematocrit 42.2 % (39.6-49.0); Hemoglobin 14.5 g/dL (13.6-17.9); MCH 31.5 pg (27.0-35.0); MCHC 34.3 g/dL (32.0-36.0); MCV 91.6 fL (80-100); MPV 9.2 fL (7.6-11.3); Nucleated RBC Absolute Count 0.0 (0-0); Nucleated Red Blood Cells % 0.0 % (0-0); RBC Red Blood Cell Count 4.60 M/uL (4.33-5.43); White Blood Count 6.00 thou/uL (4.3-10.9)
[2024-11-15 18:47] LABS: Urine Microscopic Reflex YN NO UMIC
[2024-11-15] MEDS ORDERED: ASPIRIN 81 MG CHEWABLE TABLET ONE (18:52)
[2024-11-15] MEDS ORDERED: CLOPIDOGREL 75 MG TABLET ONE (18:52)
[2024-11-15] MEDS ORDERED: FOLIC ACID 5 MG/ML VIAL ONE (18:53)
[2024-11-15 18:59] LABS: METHAMPHETAM POSITIVE (NEGATIVE); THC Cannibis NEGATIVE (NEGATIVE)
--- NOTE | 2024-11-15 19:49 | RAD REPORT ---
EXAMINATION: Neck Angio CLINICAL INDICATION: Male, 49 years old. NUMBNESS TECHNIQUE: Axial CT images were obtained from the aortic arch to the skull base after intravenous con trast utilizing angiographic protocol with 3D post-processing (maximum intensity projection images, volume rendered images and/or shaded surface rendered images). One or more of the following dose redu ction techniques were used: Automated exposure control, adjustment of the mA and/or kV according to patient size, and/or iterative reconstruction. Unless otherwise specified, incidental findings do not require dedicated imaging follow-up. [id number]. NASCET criteria used. Mild 0-49% stenosis Moderate 50-69% stenosis Severe 70-99% stenosis COMPARISON: No prior exam. FINDINGS: AORTA: Normal RIGHT: - CCA: No flow limiting stenosis (>= 50%). No dissection. - ICA: No flow limiting stenosis (>= 50%). No dissection. - ECA: No flow limiting stenosis (>= 50%). No dissection. LEFT: - CCA: No flow limiting stenosis (>= 50%). No dissection. - ICA: No flow limiting stenosis (>= 50%). No dissection. - ECA: No flow limiting stenosis (>= 50%). No dissection. VERTEBRAL: Patent SOFT TISSUE: No significant neck soft tissue abnormalities. The visualized lung apices are clear. 3D images confirm these findings. IMPRESSION: No arterial dissection or stenosis identified within the neck.
--- NOTE | 2024-11-15 19:56 | RAD REPORT ---
EXAMINATION: Head angio CLINICAL INDICATION: Male, 49 years old. WEAKNESS TECHNIQUE: Axial CT images were obtained through the head after intravenous contrast utilizing angiog raphic protocol with 3D post-processing (maximum intensity projection images, volume rendered images and/or shaded surface rendered images). One or more of the following dose reduction technique s were used: Automated exposure control, adjustment of the mA and/or kV according to patient size, and/or iterative reconstruction. Unless otherwise specified, incidental findings do not require dedic ated imaging follow-up. COMPARISON: No prior exam. FINDINGS: RIGHT: ICA: No aneurysm, stenosis, or occlusion. ELIESER: No aneurysm, stenosis, or occlusion. MCA: Asymmetric calcified plaque involving the right distal M1 segment. There are mild to moderate ri ght M1 and proximal M2 MCA stenoses. No high-grade stenosis. No occlusion. RESIDENT CARE SUPERVISOR: No aneurysm, stenosis, or occlusion. LEFT: ICA: No aneurysm, stenosis, or occlusion. ELIESER: No aneurysm, stenosis, or occlusion. MCA: No aneurysm, stenosis, or occlusion. RESIDENT CARE SUPERVISOR: No aneurysm, stenosis, or occlusion. Vertebrobasilar: Dolichoectasia of the vertebrobasilar system. 3D images confirm these findings. IMPRESSION: No large vessel occlusion or aneurysm. Asymmetric calcified plaque in the right M1 segment with mild to moderate focal stenoses involving the right M1 and M2 segments. This could be secondary to asymmetric atherosclerotic disease. The intracranial vessels are diffusely ectatic.
[2024-11-15 19:58] LABS: PT Prothrombin Time 13.9 SECONDS (10-13.0); PTT, Activated Partial Thromb 33.2 SECONDS (27.2-37.4); Protime INR 1.24
--- NOTE | 2024-11-15 20:04 | ER ---
Nurse's Notes [facility] Name: Marvin Chow Age: 49 yrs Sex: Male : 1975 Arrival Date: 11/15/2024 Time: 17:08 Bed 13 Private MD: Diagnosis: Cerebral infarction, unspecified Presentation: 11/15 17:40 Chief complaint: Patient states: weakness, chest pain, urinary frequency, confusion cm10 onset 2 weeks ago. Coronavirus screen: Client denies travel out of the [place] in the last 14 days. Ebola Screen: Patient denies travel to an Ebola-affected area in the 21 days before illness onset. Initial Sepsis Screen: Does the patient meet any 2 criteria? No. Patient's initial sepsis screen is negative. Does the patient have a suspected source of infection? No. Patient's initial sepsis screen is negative. Risk Assessment: Do you want to hurt yourself or someone else? Patient reports no desire to harm self or others. Onset of symptoms is unknown. 17:40 Method Of Arrival: Ambulatory cm10 17:40 Acuity: GERARDO 3 cm10 Triage Assessment: 17:45 General: Appears in no apparent distress. comfortable, Behavior is calm, cooperative. cm10 Pain: Denies pain. Neuro: No deficits noted. Level of Consciousness is awake, alert, obeys commands, Oriented to person, place, time, situation, Appropriate for age Reports feeling confused, unbalanced.. Neuro: Nerve Specialist are equal bilaterally Moves all extremities. Respiratory: No deficits noted. Airway is patent Respiratory effort is even, unlabored, Respiratory pattern is regular, symmetrical. Musculoskeletal: No deficits noted. Circulation, motion, and sensation intact. Range of motion: intact in all extremities. Historical: - Allergies: 17:39 No Known Allergies; cm10 - PMHx: 17:39 heart flutter; Hypertension; mitro valve prolapse; Prolonged QT wave; cm10 - PSHx: 17:39 Coronary Angioplasty; cm10 - Immunization history:: Adult Immunizations up to date. - Infectious Disease History:: Denies. - Social history:: Smoking status: Reported history of juuling and/or vaping. Screenin:46 [facility] ED Fall Risk Assessment (Adult) History of falling in the last 3 months, kd4 including since admission No falls in past 3 months (0 pts) Confusion or Disorientation Yes (5 pts) Intoxicated or Sedated No (0 pts) Impaired Gait No (0 pts) Mobility Assist Device Used No (0 pt) Altered Elimination No (0 pt) Score/Fall Risk Level 3 or more points = High Risk Oriented to surroundings, Maintained a safe environment, Educated pt \T\ family on fall prevention, incl call for assistance when getting out of bed. Abuse screen: Denies threats or abuse. Nutritional screening: No deficits noted. Tuberculosis screening: No symptoms or risk factors identified. Stephanie Swallow Protocol Brief Cognitive Screen What is your name? Normal, Where are you right now? Normal, What year is it? Normal. Oral Mechanism Examination Facial Symmetry: Normal, Motion: Normal, Lip Closure: Normal, 3 oz Water Swallow Challenge: Pt able to drink all water without stopping, coughing, choking or throat clearing: Yes Result: PASS. Assessment: 21:45 General: Chart sent to unit, hernandez confirm chart received. Patient a/o x 4 with kd4 confusion. . 21:51 Neuro: Reports Forgetfull. Respiratory: No deficits noted. kd4 Vital Signs: 17:40 BP 166 / 111; Pulse 78; Resp 14; Temp 98.3(O); Pulse Ox 98% on R/A; Weight 92.99 kg; cm10 Height 5 ft. 10 in. ; Pain 0/10; 18:39 BP 167 / 105; Pulse 72; Resp 17; Pulse Ox 97% on R/A; cm10 19:00 BP 148 / 97; Pulse 68; Resp 15; Pulse Ox 95% on R/A; cm10 21:06 BP 155 / 103; Pulse 58; Resp 18; Temp 98.4; Pulse Ox 96% on R/A; Pain 0/10; kd4 17:40 Body Mass Index 29.41 (92.99 kg, 177.8 cm) cm10 17:40 Pain Scale: Adult cm10 21:06 Pain Scale: Adult kd4 Rei Coma Score: 21:52 Eye Response: spontaneous(4). Motor Response: obeys commands(6). Verbal Response: kd4 oriented(5). Total: 15. NIH Stroke Scale Scores: 19:12 NIHSS Score: 3 dr5 21:46 NIHSS Score: 0 kd4 ED Course: 17:14 Patient arrived in ED. cj3 17:14 Mario Mercado FNP-C is PHCP. dr5 17:14 Rex Black MD is Attending Physician. dr5 17:33 Marlene Chand, CM is Primary Nurse. cm10 17:41 Triage completed. cm10 17:41 Arm band placed on right wrist. Patient placed in an exam room, on a stretcher. cm10 18:06 CT Head Brain wo Cont In Process Unspecified. EDMS 18:46 Initial lab(s) drawn, by me, sent to lab. Accessed peripheral vein via ultrasound, cm10 utilizing dynamic ultrasound technique Blood collected. Clean \T\ dry. Dressing intact. Good blood return. Flushes easily. 20g right ac. 18:47 Patient has correct armband on for positive identification. Bed in low position. Call cm10 light in reach. Side rails up X 1. Client placed on continuous cardiac and pulse oximetry monitoring. NIBP monitoring applied. field merchandiser on. 19:31 Report given to CM Rodriguez. cm10 19:39 CT Head Angio In Process Unspecified. EDMS 19:40 CT Neck Angio In Process Unspecified. EDMS 20:01 Iker Levy MD is Hospitalizing Provider. dr5 21:50 No provider procedures requiring assistance completed. Patient admitted, IV remains in kd4 place. 21:51 Provided Education on: Need for admit. kd4 Administered Medications: 18:50 Drug: Ondansetron IVP 4 mg IVP once; over 2 minutes Route: IVP; Site: right antecubital;cm10 21:45 Follow up: Response: No adverse reaction kd4 18:50 Drug: NS 0.9% IV 1000 ml IV at 1 bolus Per protocol; to be given as a bolus over 60 cm10 minutes Route: IV; Rate: 1 bolus; Site: right antecubital; 18:57 Drug: Aspirin PO Chewable Tablet 324 mg PO once; 81 mg tablets x 4 Route: PO; cm10 21:44 Follow up: Response: No adverse reaction kd4 18:57 Drug: foLIC Acid IVPB 1 mg IVPB once Route: IVPB; Site: right antecubital; cm10 21:44 Follow up: IV Status: Completed infusion kd4 18:57 Drug: Clopidogrel PO 75 mg PO once Route: PO; cm10 21:44 Follow up: Response: No adverse reaction kd4 Medication: 18:47 VIS not applicable for this client. cm10 Output: 21:52 Urine: 2ml (Voided); Total: 2ml. kd4 Outcome: 20:03 Decision to Hospitalize by Provider. dr5 21:51 Admitted to [place] [id number] 21:51 Condition: stable 21:51 Instructed on the need for admit, 23:08 Patient left the ED. kd4 NIH Stroke Scale - NIH Stroke Score Date: 11/15/2024 Time: 19:12 Total Score = 3 10. Dysarthria (speech clarity - read or repeat words) - 1(Mild to Moderate) 11. Extinction and Inattention (visual/tactile/auditory/spatial/personal) - 1(Present) 1a. Level of Consciousness (LOC) - 0(Alert) 1b. Level of Consciousness (LOC) (Month \T\ Age) - 0(Both) 1c. LOC Commands (Open \T\ Closes Eyes/Composition Weatherboard Installer) - 0(Both) 2. Best Gaze (Lateral Gaze Paresis) - 0(Normal) 3. Visual Field Loss - 0(No visual loss) 4. Facial Palsy - 0(Normal) 5a. Left Arm: Motor (10-second hold) - 0(No drift) 5b. Right Arm: Motor (10-second hold) - 0(No drift) 6a. Left Leg: Motor (5-second hold - always test supine) - 0(No drift) 6b. Right Leg: Motor (5-second hold - always test supine) - 0(No drift) 7. Limb Ataxia (finger/nose \T\ heel/bond - test with eyes open) - 0(Absent) 8. Sensory Loss (pinprick arms/legs/face) - 0(Normal) 9. Best Language: Aphasia (description/naming/reading) - 1(Mild to moderate aphasia) Initials: dr5 NIH Stroke Scale - NIH Stroke Score Date: 11/15/2024 Time: 21:46 Total Score = 0 10. Dysarthria (speech clarity - read or repeat words) - 0(Normal) 11. Extinction and Inattention (visual/tactile/auditory/spatial/personal) - 0(No abnormality) 1a. Level of Consciousness (LOC) - 0(Alert) 1b. Level of Consciousness (LOC) (Month \T\ Age) - 0(Both) 1c. LOC Commands (Open \T\ Closes Eyes/Composition Weatherboard Installer) - 0(Both) 2. Best Gaze (Lateral Gaze Paresis) - 0(Normal) 3. Visual Field Loss - 0(No visual loss) 4. Facial Palsy - 0(Normal) 5a. Left Arm: Motor (10-second hold) - 0(No drift) 5b. Right Arm: Motor (10-second hold) - 0(No drift) 6a. Left Leg: Motor (5-second hold - always test supine) - 0(No drift) 6b. Right Leg: Motor (5-second hold - always test supine) - 0(No drift) 7. Limb Ataxia (finger/nose \T\ heel/bond - test with eyes open) - 0(Absent) 8. Sensory Loss (pinprick arms/legs/face) - 0(Normal) 9. Best Language: Aphasia (description/naming/reading) - 0(No aphasia) Initials: kd4 Signatures: Dispatcher [employer] Marlene Hamm RN RN cm10 Michael Reyes RN RN kd4 Mario Mercado, PEANUT GRADER-C PEANUT GRADER-Cdr5 Jonelle Herrmann 3
--- NOTE | 2024-11-15 20:04 | EDPHYS ---
Physician Documentation [facility] Name: Marvin Chow Age: 49 yrs Sex: Male : 1975 Arrival Date: 11/15/2024 Time: 17:08 Bed 13 Private MD: ED Physician Rex Black HPI: 11/15 17:45 This 49 yrs old Male presents to ER via Ambulatory with complaints of Urinary dr5 Frequency, Confused, Balance Instability. 17:45 Onset: The symptoms/episode began/occurred 2 week(s) ago. Patient is a 49-year-old male dr5 with history of hypertension, mitral valve prolapse, and heart failure coming in with 2 weeks of urinary frequency, increased thirst, intermittent chest pain. Patient denies any symptoms at this time except urinary frequency. Patient reports he does not do recreational drugs.. Historical: - Allergies: 17:39 No Known Allergies; cm10 - PMHx: 17:39 heart flutter; Hypertension; mitro valve prolapse; Prolonged QT wave; cm10 - PSHx: 17:39 Coronary Angioplasty; cm10 - Immunization history:: Adult Immunizations up to date. - Infectious Disease History:: Denies. - Social history:: Smoking status: Reported history of juuling and/or vaping. ROS: 19:37 Constitutional: as per hpi dr5 Exam: 19:12 Constitutional: This is a well developed, well nourished patient who is awake, alert, dr5 and in no acute distress. Head/Face: Normocephalic, atraumatic. Eyes: Pupils equal round and reactive to light, extra-ocular motions intact. Lids and lashes normal. Conjunctiva and sclera are non-icteric and not injected. Cornea within normal limits. Periorbital areas with no swelling, redness, or edema. Neck: Trachea midline, no thyromegaly or masses palpated, and no cervical lymphadenopathy. Supple, full range of motion without nuchal rigidity, or vertebral point tenderness. No Meningismus. Chest/axilla: Normal chest wall appearance and motion. Nontender with no deformity. No lesions are appreciated. Cardiovascular: Regular rate and rhythm with a normal S1 and S2. Normal PMI, no JVD. No pulse deficits. Respiratory: Lungs have equal breath sounds bilaterally, clear to auscultation. No rales, rhonchi or wheezes noted. No increased work of breathing, no retractions or nasal flaring. Abdomen/GI: Soft, non-tender, non-distended Back: No spinal tenderness. No costovertebral tenderness. Full range of motion. Skin: Warm, dry with normal turgor. Normal color with no rashes, no lesions, and no evidence of cellulitis. MS/ Extremity: Pulses equal, no cyanosis. Neurovascular intact. Full, normal range of motion. Neuro: Awake and alert, GCS 15, oriented to person, place, time, and situation. Cranial nerves II-XII grossly intact. Motor strength 5/5 in all extremities. Sensory grossly intact. Cerebellar exam normal. Normal gait. Vital Signs: 17:40 BP 166 / 111; Pulse 78; Resp 14; Temp 98.3(O); Pulse Ox 98% on R/A; Weight 92.99 kg; cm10 Height 5 ft. 10 in. ; Pain 0/10; 18:39 BP 167 / 105; Pulse 72; Resp 17; Pulse Ox 97% on R/A; cm10 19:00 BP 148 / 97; Pulse 68; Resp 15; Pulse Ox 95% on R/A; cm10 21:06 BP 155 / 103; Pulse 58; Resp 18; Temp 98.4; Pulse Ox 96% on R/A; Pain 0/10; kd4 17:40 Body Mass Index 29.41 (92.99 kg, 177.8 cm) cm10 17:40 Pain Scale: Adult cm10 21:06 Pain Scale: Adult kd4 NIH Stroke Scale Scores: 19:12 NIHSS Score: 3 dr5 21:46 NIHSS Score: 0 kd4 Rei Coma Score: 21:52 Eye Response: spontaneous(4). Motor Response: obeys commands(6). Verbal Response: kd4 oriented(5). Total: 15. MDM: 17:14 Medical Screening Exam initiated dr5 19:56 Differential diagnosis: CVA, TIA, new onset diabetes, anemia, illicit drug abuse, dr5 intracranial hemorrhage. Data reviewed: vital signs, nurses notes, lab test result(s), CBC, white blood cell count, hemoglobin, hematocrit, platelets, electrolytes, sodium, potassium, chloride, serum bicarbonate, BUN, creatinine, serum glucose, EKG, radiologic studies, CT scan. Consideration of Admission/Observation Patient was admitted/placed on observation. Management of patient was discussed with the following: Hospitalist: Dr. Levy. I considered the following discharge prescriptions or medication management in the emergency department I discussed and recommended Over The Counter medications, Medications were administered in the Emergency Department. See MAY. 20:03 Historians other than the Patient: Spouse/Significant Other: Spouse. Care significantly dr5 affected by the following chronic conditions: Hypertension, Mitral valve prolapse, heart flutter. Care significantly affected by the following Social Determinants of Health: Poor access to healthcare and/or lack of insurance, Poor access to transportation, Problems related to employment. Counseling: I had a detailed discussion with the patient and/or guardian regarding the historical points, exam findings, and any diagnostic results supporting the discharge/admit diagnosis, the presence of at least one elevated blood pressure reading (>120/80) during this emergency department visit, lab results, radiology results, the need for further work-up and treatment in the hospital. ED course: Patient agreeable to be admitted. No LVO noted on CT head and neck angio. Folic acid, aspirin, Plavix given. All questions answered. Will admit to hospitalist.. 11/15 17:43 Order name: CBC with Diff; Complete Time: 18:49 [facility] 11/15 17:43 Order name: CMP [facility] 11/15 17:43 Order name: Lipase [facility] 11/15 17:43 Order name: UA Rfx Jam Cult if indicated; Complete Time: 18:49 [facility] 11/15 17:43 Order name: Urine Drug Screen; Complete Time: 19:01 [facility] 11/15 17:43 Order name: Troponin High Sensitivity [facility] 11/15 17:49 Order name: Glucose, Ancillary Testing; Complete Time: 18:14 [facility] 11/15 18:34 Order name: Protime (+inr); Complete Time: 19:59 [facility] 11/15 18:34 Order name: Ptt, Activated; Complete Time: 19:59 [facility] 11/15 20:16 Order name: CBC with Automated Diff [facility] 11/15 20:16 Order name: CBC with Automated Diff [facility] 11/15 20:16 Order name: Comprehensive Metabolic Panel [facility]DA[facility] 11/15 20:16 Order name: Comprehensive Metabolic Panel [facility] 11/15 17:43 Order name: CT Head Brain wo Cont; Complete Time: 18:23 [facility] 11/15 18:31 Order name: CT Head Angio; Complete Time: 19:58 [facility] 11/15 18:31 Order name: CT Neck Angio; Complete Time: 19:50 dr5 11/15 20:19 Order name: Echo with Doppler [facility] 11/15 17:43 Order name: EKG; Complete Time: 17:43 dr5 11/15 20:19 Order name: CONS Physician Consult [facility] 11/15 20:19 Order name: IRF Screen [facility] 11/15 20:19 Order name: Physical Therapy Consult [facility] 11/15 20:19 Order name: Speech Therapy Consult [facility] 11/15 17:43 Order name: IV Saline Lock; Complete Time: 19:43 dr5 11/15 17:43 Order name: Labs collected and sent; Complete Time: 19:43 dr5 11/15 17:43 Order name: EKG - Nurse/Tech; Complete Time: 19:43 dr5 11/15 18:53 Order name: Labs - recollect needed: please recollect chemistries please - hemolyzed; iw Complete Time: 19:43 EC:16 Rate is 70 beats/min. Rhythm is regular. QRS [place] is Normal. AR interval is normal at dr5 132 msec. QRS interval is normal at 102 msec. QT interval is normal at 412 msec. Clinical impression: Normal ECG and No evidence of ischemia. Administered Medications: 18:50 Drug: Ondansetron IVP 4 mg IVP once; over 2 minutes Route: IVP; Site: right antecubital;cm10 21:45 Follow up: Response: No adverse reaction kd4 18:50 Drug: NS 0.9% IV 1000 ml IV at 1 bolus Per protocol; to be given as a bolus over 60 cm10 minutes Route: IV; Rate: 1 bolus; Site: right antecubital; 18:57 Drug: Aspirin PO Chewable Tablet 324 mg PO once; 81 mg tablets x 4 Route: PO; cm10 21:44 Follow up: Response: No adverse reaction kd4 18:57 Drug: foLIC Acid IVPB 1 mg IVPB once Route: IVPB; Site: right antecubital; cm10 21:44 Follow up: IV Status: Completed infusion kd4 18:57 Drug: Clopidogrel PO 75 mg PO once Route: PO; cm10 21:44 Follow up: Response: No adverse reaction kd4 Disposition: 11/16 06:58 Co-signature as Attending Physician, Rex Black MD I reviewed the patient's care rn provided by the Advanced Practice Provider and agree with the diagnosis and treatment plan. Disposition Summary: 11/15/24 20:03 Hospitalization Ordered Notes: Hospitalization Status: Inpatient Admission dr5 Provider: Iker Levy Location: Telemetry/MedSurg (Inpatient) dr5 Problem: new dr5 Symptoms: have worsened dr5 Bed/Room Type: Standard dr5 Condition: Serious(11/15/24 20:03) dr5 Room Assignment: 229(11/15/24 20:29) vk Diagnosis - Cerebral infarction, unspecified dr5 Forms: - Medication Reconciliation Form dr5 - SBAR form dr5 - Leadership Thank You Letter dr5 Critical care time excluding procedures: 11/15 19:56 Critical care time: Bedside Care: 25 minutes, Consultation: 5 minutes, Family dr5 Intervention: 5 minutes. Total time: 35 minutes NIH Stroke Scale - NIH Stroke Score Date: 11/15/2024 Time: 19:12 Total Score = 3 10. Dysarthria (speech clarity - read or repeat words) - 1(Mild to Moderate) 11. Extinction and Inattention (visual/tactile/auditory/spatial/personal) - 1(Present) 1a. Level of Consciousness (LOC) - 0(Alert) 1b. Level of Consciousness (LOC) (Month \T\ Age) - 0(Both) 1c. LOC Commands (Open \T\ Closes Eyes/Senior Office Assistant) - 0(Both) 2. Best Gaze (Lateral Gaze Paresis) - 0(Normal) 3. Visual Field Loss - 0(No visual loss) 4. Facial Palsy - 0(Normal) 5a. Left Arm: Motor (10-second hold) - 0(No drift) 5b. Right Arm: Motor (10-second hold) - 0(No drift) 6a. Left Leg: Motor (5-second hold - always test supine) - 0(No drift) 6b. Right Leg: Motor (5-second hold - always test supine) - 0(No drift) 7. Limb Ataxia (finger/nose \T\ heel/bond - test with eyes open) - 0(Absent) 8. Sensory Loss (pinprick arms/legs/face) - 0(Normal) 9. Best Language: Aphasia (description/naming/reading) - 1(Mild to moderate aphasia) Initials: dr5 NIH Stroke Scale - NIH Stroke Score Date: 11/15/2024 Time: 21:46 Total Score = 0 10. Dysarthria (speech clarity - read or repeat words) - 0(Normal) 11. Extinction and Inattention (visual/tactile/auditory/spatial/personal) - 0(No abnormality) 1a. Level of Consciousness (LOC) - 0(Alert) 1b. Level of Consciousness (LOC) (Month \T\ Age) - 0(Both) 1c. LOC Commands (Open \T\ Closes Eyes/Senior Office Assistant) - 0(Both) 2. Best Gaze (Lateral Gaze Paresis) - 0(Normal) 3. Visual Field Loss - 0(No visual loss) 4. Facial Palsy - 0(Normal) 5a. Left Arm: Motor (10-second hold) - 0(No drift) 5b. Right Arm: Motor (10-second hold) - 0(No drift) 6a. Left Leg: Motor (5-second hold - always test supine) - 0(No drift) 6b. Right Leg: Motor (5-second hold - always test supine) - 0(No drift) 7. Limb Ataxia (finger/nose \T\ heel/bond - test with eyes open) - 0(Absent) 8. Sensory Loss (pinprick arms/legs/face) - 0(Normal) 9. Best Language: Aphasia (description/naming/reading) - 0(No aphasia) Initials: kd4 Signatures: Dispatcher [employer] Nery Joe RN RN iw Nieto, Roman, MD MD rn Martinez, Clarissa, RN RN cm10 Mecca Washburn Dustin, SALESPERSON [employer]ERE[employer] EQUIPMENT-C SALESPERSON STERE[employer] EQUIPMENT-Cdr5 Michael Reyes RN kd4 Corrections: (The following items were deleted from the chart) 20:03 20:03 Stable dr5 dr5 20: 20:03 leah machuca
[2024-11-15] MEDS ORDERED: ACETAMINOPHEN 325 MG TABLET PO PRN (20:11)
--- NOTE | 2024-11-15 20:11 | P.HP ---
Certification for Inpatient Patient admitted to: Inpatient With expected LOS: >2 Midnights Practitioner: I am a practitioner with admitting privileges, knowledge of patient current condition, hospital course, and medical plan of care. Services: Services provided to patient in accordance with Admission requirements found in Title 42 Section 412.3 of the Code of Federal Regulations Patient History Date of Service: 11/16/24 Reason for admission: CVA History of Present Illness: \49 yrs old Male with past medical history of atrial flutter, hypertension, mitral valve prolapse, prolonged QT syndrome, history of coronary angioplasty was brought to the ER with confusion and balance instability associated with generalized weakness which has been going on for the last 2 weeks. Patient has urinary frequency and increased thirst and intermittent chest discomfort and confusion and could not recollect any history over the last 2 weeks. Denies any chest pain or shortness of breath. No nausea vomiting diarrhea. No fever or chills. No sick contacts. Patient was assessed in the ER and was admitted for further management of CVA Allergies No Known Allergies Allergy (Uncoded 08/10/16 11:19) Unknown Home medications list reviewed: Yes - Past Medical/Surgical History Past Medical History: Reviewed- Non-Contributory -: Hypertension, hyperlipidemia Past Surgical History: Reviewed- Non-Contributory - Social History Smoking Status: Never smoker Review of Systems 10-point ROS is otherwise unremarkable Physical Examination - Vital Signs Temperature: 98.3 F Blood Pressure: 166/111 Pulse: 78 Respirations: 18 Pulse Ox (%): 94 - Physical Exam General: Alert, Cooperative, Mild distress HEENT: Atraumatic, Normocephalic Neck: Supple Respiratory: Clear to auscultation bilaterally, Normal air movement Cardiovascular: Regular rate/rhythm, Normal S1 S2 Capillary refill: <2 Seconds Gastrointestinal: Soft and benign, W/out hepatosplenomegaly Musculoskeletal: No clubbing, No swelling Integumentary: No rashes Neurological: Other (Alert awake nonfocal) Lymphatics: No axilla or inguinal lymphadenopathy - Studies Laboratory Data (last 24 hrs) 11/15/24 11/15/24 19:41 18:35 WBC 6.00 Hgb 14.5 Hct 42.2 Plt Count 132 L PT 13.9 H INR 1.24 APTT 33.2 Assessment and Plan - Plan CVA/TIA No focal weakness Started on aspirin and statin CT CTA findings noted MRI brain ordered Monitor neuro vital signs Monitor under telemetry Neurology consulted Hypertension Antihypertensives titrated Continue home medications and titrate as needed Hyperlipidemia Continue statin H/o mitral valve prolapse prolonged QT syndrome, CAD, history of coronary angioplasty Continue home medications and titrate as needed Awaiting echocardiogram GI/DVT prophylaxis Advanced directive full code Discharge Plan: Home Plan to discharge in: 48 Hours - Advance Directives Does patient have a Living Will: No Does patient have a Durable POA for Healthcare: No - Code Status/Comfort Care Code Status: Full Code Time Spent Managing Pts Care (In Minutes): 48
[2024-11-15 20:21] LABS: ALT/SGPT 17.0 U/L (16-61); AST/SGOT 12.0 U/L (15-37); Albumin 2.9 g/dL (3.4-5.0); Albumin/Globulin Ratio 1.0 (1.1-1.8); Alkaline Phosphatase 53.0 U/L (45-117); Anion Gap 6.2 mEq/L (5.0-15.0); BUN Blood Urea Nitrogen 7.0 mg/dL (7-18); Globulin 2.9 g/dL (2.3-3.5); Glucose Level 102.0 mg/dL (74-106); Lipase 41.0 U/L (13-75); Potassium 3.2 mEq/L (3.5-5.1); Troponin High Sensitivity 16.1 pg/mL (<58.9)
[2024-11-15] MEDS: ATORVASTATIN 20 MG TAB PO SCH (21:00)
[2024-11-16] MEDS: NA CHLORIDE 0.9% 1,000 ML IV SCH (00:08)
[2024-11-16 07:15] LABS: Absolute Lymphocytes (CBC) 2.8 K/uL (0.7-4.9); Hematocrit 44.1 % (39.6-49.0); Hemoglobin 15.2 g/dL (13.6-17.9); MCH 31.8 pg (27.0-35.0); MCHC 34.6 g/dL (32.0-36.0); MCV 91.8 fL (80-100); MPV 9.9 fL (7.6-11.3); Nucleated RBC Absolute Count 0.0 (0-0); Nucleated Red Blood Cells % 0.1 % (0-0); RBC Red Blood Cell Count 4.80 M/uL (4.33-5.43); White Blood Count 5.80 thou/uL (4.3-10.9)
[2024-11-16 07:27] LABS: ALT/SGPT 19.0 U/L (16-61); AST/SGOT 16.0 U/L (15-37); Albumin 3.2 g/dL (3.4-5.0); Albumin/Globulin Ratio 1.0 (1.1-1.8); Alkaline Phosphatase 58.0 U/L (45-117); Anion Gap 6.2 mEq/L (5.0-15.0); BUN Blood Urea Nitrogen 8.0 mg/dL (7-18); Globulin 3.2 g/dL (2.3-3.5); Glucose Level 130.0 mg/dL (74-106); Potassium 3.2 mEq/L (3.5-5.1)
--- NOTE | 2024-11-16 07:39 | P.PN ---
Date of Service: 11/16/24 Subjective: Sleeping in bed. We discussed getting an MRI today. He has no acute complaints. Endorses some weakness but is very sleepy. He denies fevers and chills Review of Systems 10-point ROS is otherwise unremarkable Physical Examination - Vital Signs Temperature: 98.3 F Blood Pressure: 166/111 Pulse: 78 Respirations: 18 Pulse Ox (%): 94 - Physical Exam General: Alert, Cooperative, Mild distress HEENT: Atraumatic, Normocephalic Neck: Supple Respiratory: Clear to auscultation bilaterally, Normal air movement Cardiovascular: Regular rate/rhythm, Normal S1 S2 Capillary refill: <2 Seconds Gastrointestinal: Soft and benign, W/out hepatosplenomegaly Musculoskeletal: No clubbing, No swelling Integumentary: No rashes Neurological: Other (Alert awake nonfocal) Lymphatics: No axilla or inguinal lymphadenopathy - Studies Laboratory Data (last 24 hrs) 11/15/24 11/15/24 19:41 18:35 WBC 6.00 Hgb 14.5 Hct 42.2 Plt Count 132 L PT 13.9 H INR 1.24 APTT 33.2 Assessment and Plan 11/16 - MRI brain pending - Telemetry reviewed - Neurology to see in the a.m. - Echo pending - Replace potassium - Speech therapy and physical therapy consult - Blood pressure improved CVA/TIA No focal weakness Started on aspirin and statin CT CTA findings noted MRI brain ordered Monitor neuro vital signs Monitor under telemetry Neurology consulted Hypertension Antihypertensives titrated Continue home medications and titrate as needed Hyperlipidemia Continue statin H/o mitral valve prolapse prolonged QT syndrome, CAD, history of coronary angioplasty Continue home medications and titrate as needed Awaiting echocardiogram GI/DVT prophylaxis Advanced directive full code Discharge Plan: Home Plan to discharge in: 48 Hours - Advance Directives Does patient have a Living Will: No Does patient have a Durable POA for Healthcare: No - Code Status/Comfort Care Code Status: Full Code Time spent on the encounter, including patient evaluation, history taking, physical exam, medical decision making, coordination of care, and documentation, was 35 minutes. Time includes direct [id number] interaction with the patient and indirect time spent reviewing records, ordering tests, and discussing the care plan.
[2024-11-16] MEDS: ASPIRIN EC 81 MG TAB PO SCH (09:10)
[2024-11-16] MEDS: POTASSIUM 25 MEQ EFFERV TAB PO ONE (20:55)
[2024-11-17 00:01] VITALS: BMI 29.4
[2024-11-17] MEDS: HYDRALAZINE HCL 20 MG/ML VIAL IV PRN (00:08)
[2024-11-17 09:14] VITALS: O2SAT 99
[2024-11-17] MEDS: ENOXAPARIN 40 MG/0.4 ML SQ SCH (11:44)
[2024-11-17 11:53] VITALS: TEMP 97.9
[2024-11-17] MEDS: AMLODIPINE 10 MG TAB PO SCH (14:05)
--- NOTE | 2024-11-17 14:28 | RAD REPORT ---
EXAMINATION: MRI BRAIN WITHOUT CONTRAST CLINICAL INDICATION: Male, 49 years old.[facility] CVA TECHNIQUE: Multiplanar multisequence MR images of the brain were obtained without intravenous contras t. Unless otherwise specified, incidental findings do not require dedicated imaging follow-up. COMPARISON: Noncontrast head CT and CT angiogram 11/15/2024 FINDINGS: INTRACRANIAL: Midline structures are unremarkable. Left thalamic mildly expansile lesion seen on CT demonstrates ce ntral intrinsic T1 and T2 hyperintense signal with the exception of a small medial inferior hypointense focus. Rim of susceptibility signal abnormality. The lesion measures 2.7 x 1.7 x 2.0 cm i n greatest AP, transverse, and CC dimensions. Foci of diffusion signal abnormality are slightly more lateral to the lesion. Mild mass effect upon the third ventricle. Diffusion-weighted images show no other evidence of acute or early subacute infarction. There is mild brain atrophy with mildT2/FLAIR hyperintensities in the periventricular and deep white matter regions, likely representi ng chronic microvascular ischemic changes. There is no midline shift. No abnormal extraaxial fluid collection. VASCULATURE: Normal signal voids in the larger intracranial arteries and dural venous sinuses. Dolich oectasia of the basilar artery with some mass effect upon the right anterolateral stacey and medulla SINUSES: The paranasal sinuses and mastoid air cells are predominantly clear. BONE: The marrow signal pattern is within normal limits. IMPRESSION: Left thalamic mildly expansile 2.7 cm lesion demonstrates features most compatible with a late subacu te hemorrhage, likely hypertensive in nature given location, although could relate to a hemorrhagic infarct. Mild mass effect with mild effacement of the adjacent third ventricle. THIS REPORT CONTAINS FINDINGS THAT MAY BE CRITICAL TO PATIENT CARE. The findings were verbally commun icated via telephone to Jenn Cavazos MD on 11/17/2024 1:50 PM.
[2024-11-17 14:37] VITALS: BP 166/109
--- NOTE | 2024-11-17 14:53 | P.PN ---
Date of Service: 11/17/24 Subjective: Endorses some vision changes. Denies headache. He denies fevers and chills Review of Systems 10-point ROS is otherwise unremarkable Physical Examination - Vital Signs Temperature: 98.3 F Blood Pressure: 166/111 Pulse: 78 Respirations: 18 Pulse Ox (%): 94 - Physical Exam General: Alert, Cooperative, Mild distress HEENT: Atraumatic, Normocephalic Neck: Supple Respiratory: Clear to auscultation bilaterally, Normal air movement Cardiovascular: Regular rate/rhythm, Normal S1 S2 Capillary refill: <2 Seconds Gastrointestinal: Soft and benign, W/out hepatosplenomegaly Musculoskeletal: No clubbing, No swelling Integumentary: No rashes Neurological: Other (Alert awake nonfocal) Lymphatics: No axilla or inguinal lymphadenopathy - Studies Laboratory Data (last 24 hrs) 11/15/24 11/15/24 19:41 18:35 WBC 6.00 Hgb 14.5 Hct 42.2 Plt Count 132 L PT 13.9 H INR 1.24 APTT 33.2 Assessment and Plan 11/17 -MRI of the brain with hemorrhagic conversion of stroke -Keep blood pressure around 140 systolic and 80-90 diastolic -Discussed with Dr. Doe -Transfer to [facility] for neurosurgery consult -Stop Lovenox and aspirin -Replace potassium -Echo pending 11/16 - MRI brain pending - Telemetry reviewed - Neurology to see in the a.m. - Echo pending - Replace potassium - Speech therapy and physical therapy consult - Blood pressure improved CVA/TIA No focal weakness Started on aspirin and statin CT CTA findings noted MRI brain ordered Monitor neuro vital signs Monitor under telemetry Neurology consulted Hypertension Antihypertensives titrated Continue home medications and titrate as needed Hyperlipidemia Continue statin H/o mitral valve prolapse prolonged QT syndrome, CAD, history of coronary angioplasty Continue home medications and titrate as needed Awaiting echocardiogram GI/DVT prophylaxis Advanced directive full code Discharge Plan: Home Plan to discharge in: 48 Hours - Advance Directives Does patient have a Living Will: No Does patient have a Durable POA for Healthcare: No - Code Status/Comfort Care Code Status: Full Code Time spent on the encounter, including patient evaluation, history taking, physical exam, medical decision making, coordination of care, and documentation, was 35 minutes. Time includes direct [id number] interaction with the patient and indirect time spent reviewing records, ordering tests, and discussing the care plan.
[2024-11-18] MEDS ORDERED: hydroCHLOROthiazide 25 MG TAB PO SCH (09:00)
[2024-11-18] MEDS ORDERED: AMLODIPINE 10 MG TAB PO SCH (09:00)
--- NOTE | 2024-11-18 13:18 | ECHO ---
HEIGHT: 5 ft 10 in WEIGHT: 205 lb 0 oz DATE OF STUDY: 11/17/[address]: Estuardo Levy DO 2-DIMENSIONAL: YES M.MODE: YES DOPPLER: YES COLOR FLOW: YES TDS: PORTABLE: YES DEFINITY: BUBBLE STUDY: DIAGNOSIS: STROKE CARDIAC HISTORY: CATHERIZATION: NO SURGERY: NO PROSTHETIC VALVE: NO PACEMAKER: NO MEASUREMENTS (cm) DIASTOLIC (NORMALS) SYSTOLIC (NORMALS) IVSd 1.4 (0.6-1.2) LA Diam 3.9 (1.9-4.0) LVEF 60-65% LVIDd 5.0 (3.5-5.7) LVIDs 3.1 (2.0-3.5) %FS 38% LVPWd 1.4 (0.6-1.2) Ao Diam 3.1 (2.0-3.7) 2 DIMENSIONAL ASSESSMENT: RIGHT ATRIUM: NORMAL LEFT ATRIUM: NORMAL RIGHT VENTRICLE: NORMAL LEFT VENTRICLE: MODERATE LEFT VENTRICULAR HYPERTROPHY TRICUSPID VALVE: NORMAL MITRAL VALVE: NORMAL PULMONIC VALVE: NORMAL AORTIC VALVE: NORMAL PERICARDIAL EFFUSION: NONE AORTIC ROOT: NORMAL LEFT VENTRICULAR WALL MOTION: NONE DOPPLER/COLOR FLOW: NORMAL COMMENTS: 1. NORMAL LEFT VENTRICULAR SYSTOLIC FUNCTION, EJECTION FRACTION 60-65%, NORMAL WALL MOTION 2. NORMAL DIASTOLIC FUNCTION TECHNOLOGIST: SONIA MILLER
== END 2024-11-17 17:55 | disposition left against medical advice (07) | DRG 65 ==
LOC: ER 17:08 → ERHOLD 20:11 → 2ND 21:45
PROVIDERS: ADMIT Family Medicine; ATTEND Family Medicine
DX: I63.9 Cerebral infarction, unspecified (principal); E22.2 Syndrome of inappropriate secretion of antidiuretic hormone; I48.92 Unspecified atrial flutter; I10 Essential (primary) hypertension; I34.1 Nonrheumatic mitral (valve) prolapse; R94.31 Abnormal electrocardiogram [ECG] [EKG]; Z95.5 Presence of coronary angioplasty implant and graft; I25.10 Atherosclerotic heart disease of native coronary artery without angina pectoris; E78.5 Hyperlipidemia, unspecified; R29.703 NIHSS score 3
CPT/HCPCS: 36415; 70450; 70496; 70498; 70551; 80053; 80307; 81003; 82565; 82947; 83690; 84484; 85025; 85610; 85730; 93005; 93306; 94760; 96365; 96366; 96375; 97161; 99285; J0360; J1650; J2405; J7030; Q9967